=== PATIENT | male | born 1930 | race Caucasian/White ===

== ENCOUNTER → 2016-05-29 | Outpatient (CLI) | payer MEDICARE, OTHER ==
[~2016-05-29] MED LIST: CEFDINIR300 MG PO; DIFLUCAN 100MG100 MG PO; ED ZITHROM6 TAB/BOTT PO; FINASTERIDE5 MG PO; FOLGARD RX 2.21 TAB PO; GLUCOSAMINE CHO1 CA2 PO; KLOR-CON M1010 MEQ PO; LASIX 20MG TABL20 MG PO; LATANOPROST 2.2.5 ML OU; LOPRESSOR 225 MG/TAB PO; MIRALAX PA17 GM/Dose PO; NORCO 325 MG-7.1 TA1 PO; POTASSIUM CH2 MEQ/ML PO; PREDNISONE10 MG PO; SAW PALMETTO450 M1 PO; ST. JOSEPH81 M2 PO; SUPER EPA1 SGL PO; SYNTHROID0.088 MG PO; TYLENOL 325MG325 MG PO; ZYLOPRIM 300MG300 MG PO; [UNRECOGNIZED DRUG - OTHER] PO
== END ==
LOC: LAB 09:21
DX: C83.08 Small cell B-cell lymphoma, lymph nodes of multiple sites (principal)

== ENCOUNTER → 2016-06-05 | Outpatient (CLI) | payer MEDICARE, OTHER | LOC: LAB 09:11 | DX: C83.08 Small cell B-cell lymphoma, lymph nodes of multiple sites (principal) ==

== ENCOUNTER → 2016-06-12 | Outpatient (CLI) | payer MEDICARE, OTHER | LOC: LAB 09:10 | DX: C83.08 Small cell B-cell lymphoma, lymph nodes of multiple sites (principal) ==

== ENCOUNTER → 2016-06-16 | Outpatient (CLI) | payer MEDICARE, OTHER | LOC: RAD 08:48 | DX: C18.0 Malignant neoplasm of cecum (principal); K76.9 Liver disease, unspecified; N28.9 Disorder of kidney and ureter, unspecified | CPT/HCPCS: Q9967 ==

== ENCOUNTER → 2016-06-19 | Outpatient (CLI) | payer MEDICARE, OTHER | LOC: LAB 09:16 | DX: C18.0 Malignant neoplasm of cecum (principal) ==

== ENCOUNTER → 2016-06-26 | Outpatient (CLI) | payer MEDICARE, OTHER | LOC: LAB 09:05 | DX: C18.0 Malignant neoplasm of cecum (principal) ==

== ENCOUNTER → 2016-07-03 | Outpatient (CLI) | payer MEDICARE, OTHER | LOC: LAB 09:05 | DX: C83.08 Small cell B-cell lymphoma, lymph nodes of multiple sites (principal) ==

== ENCOUNTER → 2016-07-10 | Outpatient (CLI) | payer MEDICARE, OTHER | LOC: LAB 09:23 | DX: C83.08 Small cell B-cell lymphoma, lymph nodes of multiple sites (principal) ==

== ENCOUNTER → 2016-07-17 | Outpatient (CLI) | payer MEDICARE, OTHER | LOC: LAB 09:22 | DX: C83.08 Small cell B-cell lymphoma, lymph nodes of multiple sites (principal) ==

== ENCOUNTER → 2016-07-31 | Outpatient (CLI) | payer MEDICARE, OTHER | LOC: LAB 09:28 | DX: C18.4 Malignant neoplasm of transverse colon (principal) ==

== ENCOUNTER → 2016-08-07 | Outpatient (CLI) | payer MEDICARE, OTHER | LOC: LAB 09:25 | DX: C18.4 Malignant neoplasm of transverse colon (principal) ==

== ENCOUNTER → 2016-08-14 | Outpatient (CLI) | payer MEDICARE, OTHER | LOC: LAB 09:19 | DX: C18.4 Malignant neoplasm of transverse colon (principal) ==

== ENCOUNTER → 2016-09-11 | Outpatient (CLI) | payer MEDICARE, OTHER ==
[2015-12-26 16:38] VITALS: BP 138/76
== END ==
LOC: LAB 09:13
DX: C18.0 Malignant neoplasm of cecum (principal)

== ENCOUNTER → 2016-10-09 | Outpatient (CLI) | payer MEDICARE, OTHER ==
[2015-12-26 16:38] VITALS: BP 138/76
== END ==
LOC: LAB 09:24
DX: C18.4 Malignant neoplasm of transverse colon (principal)

== ENCOUNTER → 2016-11-06 | Outpatient (CLI) | payer MEDICARE, OTHER ==
[2015-12-26 16:38] VITALS: BP 138/76
== END ==
LOC: LAB 09:01
DX: C18.0 Malignant neoplasm of cecum (principal)

== ENCOUNTER → 2016-12-04 | Outpatient (CLI) | payer MEDICARE, OTHER ==
[2015-12-26 16:38] VITALS: BP 138/76
== END ==
LOC: LAB 08:41
DX: C18.4 Malignant neoplasm of transverse colon (principal)

== ENCOUNTER → 2017-01-01 | Outpatient (CLI) | payer MEDICARE, OTHER ==
[2015-12-26 16:38] VITALS: BP 138/76
== END ==
LOC: LAB 08:55
DX: C18.9 Malignant neoplasm of colon, unspecified (principal)

== ENCOUNTER → 2017-01-02 | Outpatient (CLI) | payer MEDICARE, OTHER ==
[2015-12-26 16:38] VITALS: BP 138/76
== END ==
LOC: RAD 08:41
DX: C18.9 Malignant neoplasm of colon, unspecified (principal); K76.9 Liver disease, unspecified; N28.9 Disorder of kidney and ureter, unspecified
CPT/HCPCS: Q9967

== ENCOUNTER → 2017-01-12 | Outpatient (CLI) | payer MEDICARE, OTHER ==
[~2017-01-12] VITALS: Ht 170.2 cm; Wt 98.7 kg
[2017-01-12 20:00] VITALS: BP 144/82
== END ==
LOC: AMSURD 19:48
DX: Z45.2 Encounter for adjustment and management of vascular access device (principal)
CPT/HCPCS: J1644

== ENCOUNTER → 2017-02-02 | Outpatient (CLI) | payer MEDICARE, OTHER ==
[2017-01-12 20:00] VITALS: BP 144/82
== END ==
LOC: LAB 09:05
DX: C18.0 Malignant neoplasm of cecum (principal)

== ENCOUNTER → 2017-03-09 | Outpatient (CLI) | payer MEDICARE, OTHER ==
[2017-01-12 20:00] VITALS: BP 144/82
== END ==
LOC: LAB 09:05
DX: C18.0 Malignant neoplasm of cecum (principal); C18.4 Malignant neoplasm of transverse colon

== ENCOUNTER → 2017-04-06 | Outpatient (CLI) | payer MEDICARE, OTHER ==
[2017-01-12 20:00] VITALS: BP 144/82
[2017-04-06 09:16] LABS: HEMATOCRIT 49.2 % (42.0-52.0); HEMOGLOBIN 15.4 g/dL (13.5-18.0); MEAN CELL VOLUME 95 fl (78-100); MEAN CORPUSCULAR HEMOGLOBIN 30 pg (27-31); MEAN CORPUSCULAR HGB CONC 31 g/dL (33-37); MEAN PLATELET VOLUME 8.8 fl (7.4-10.4); PLATELET COUNT 243 K/mm3 (130-400); RED BLOOD COUNT 5.19 M/mm3 (4.20-5.60); RED CELL DISTRIBUTION WIDTH 16.2 % (11.5-14.5); WHITE BLOOD COUNT 3.8 K/mm3 (4.8-10.8)
[2017-04-06 09:27] LABS: ALBUMIN 3.1 g/dL (3.5-5.0); BUN/CREATININE RATIO 17.7 (6.0-26.0); CALCIUM 8.7 mg/dL (8.4-10.2); POTASSIUM 3.8 mmol/L (3.6-5.0); TOTAL BILIRUBIN 1.5 mg/dL (0.2-1.3); TOTAL PROTEIN 5.8 g/dL (6.3-8.2)
[2017-04-06 09:48] LABS: BAND 1 % (0-10); LYMPHOCYTE 30 % (20-51); MONOCYTE 27 % (3-10); NEUTROPHILS 35 % (42-75)
== END ==
LOC: LAB 08:53
PROVIDERS: Internal Medicine Medical Oncology
DX: C18.0 Malignant neoplasm of cecum (principal)

== ENCOUNTER → 2017-05-20 | Outpatient (CLI) | payer MEDICARE, OTHER ==
[2017-01-12 20:00] VITALS: BP 144/82
[2017-05-20 09:38] LABS: BUN/CREATININE RATIO 19.5 (6.0-26.0); CALCIUM 7.8 mg/dL (8.4-10.2); POTASSIUM 3.9 mmol/L (3.6-5.0); TOTAL BILIRUBIN 1.7 mg/dL (0.2-1.3); TOTAL PROTEIN 5.4 g/dL (6.3-8.2)
[2017-05-20 09:45] LABS: HEMATOCRIT 48.7 % (42.0-52.0); MEAN CELL VOLUME 95 fl (78-100); MEAN CORPUSCULAR HEMOGLOBIN 29 pg (27-31); MEAN CORPUSCULAR HGB CONC 31 g/dL (33-37); MEAN PLATELET VOLUME 9.4 fl (7.4-10.4); PLATELET COUNT 209 K/mm3 (130-400); RED BLOOD COUNT 5.12 M/mm3 (4.20-5.60); WHITE BLOOD COUNT 7.5 K/mm3 (4.8-10.8)
[2017-05-20 10:42] LABS: LYMPHOCYTE 17 % (20-51); MONOCYTE 13 % (3-10); NEUTROPHILS 66 % (42-75)
== END ==
LOC: LAB 08:42
PROVIDERS: Internal Medicine Medical Oncology
DX: C18.9 Malignant neoplasm of colon, unspecified (principal)

== ENCOUNTER → 2017-05-22 | Outpatient (CLI) | payer MEDICARE, OTHER ==
[2017-01-12 20:00] VITALS: BP 144/82
== END ==
LOC: RAD 16:13
DX: J06.9 Acute upper respiratory infection, unspecified (principal); R05 Cough; I50.32 Chronic diastolic (congestive) heart failure

== ENCOUNTER → 2017-05-27 | Outpatient (CLI) | payer MEDICARE, OTHER ==
[2017-01-12 20:00] VITALS: BP 144/82
[2017-05-27 09:54] LABS: BUN/CREATININE RATIO 14.6 (6.0-26.0); CALCIUM 8.7 mg/dL (8.4-10.2); TOTAL PROTEIN 5.4 g/dL (6.3-8.2)
[2017-05-27 09:57] LABS: BASO # 0.1 (0.02-0.10); EOS # 0.2 (0.04-0.40); EOS % 2.3 % (0.0-4.0); HEMATOCRIT 47.9 % (42.0-52.0); LYMPH# 1.1 (1.50-4.00); MEAN CELL VOLUME 95 fl (78-100); MEAN CORPUSCULAR HEMOGLOBIN 30 pg (27-31); MEAN CORPUSCULAR HGB CONC 31 g/dL (33-37); MEAN PLATELET VOLUME 9.5 fl (7.4-10.4); MONO # 0.8 (0.20-0.80); NEU # 4.5 (1.40-6.50); PLATELET COUNT 233 K/mm3 (130-400); RED BLOOD COUNT 5.07 M/mm3 (4.20-5.60); RED CELL DISTRIBUTION WIDTH 16.1 % (11.5-14.5); WHITE BLOOD COUNT 6.6 K/mm3 (4.8-10.8)
== END ==
LOC: LAB 09:00
PROVIDERS: Internal Medicine Medical Oncology
DX: C18.9 Malignant neoplasm of colon, unspecified (principal)

== ENCOUNTER → 2017-06-01 | Outpatient (CLI) | payer MEDICARE, OTHER ==
[2017-01-12 20:00] VITALS: BP 144/82
== END ==
LOC: RAD 09:55
DX: C18.0 Malignant neoplasm of cecum (principal); Z85.72 Personal history of non-Hodgkin lymphomas; R18.8 Other ascites; K76.9 Liver disease, unspecified; N28.9 Disorder of kidney and ureter, unspecified; R93.5 Abnormal findings on diagnostic imaging of other abdominal regions, including retroperitoneum
CPT/HCPCS: Q9967

== ENCOUNTER → 2017-06-05 | Outpatient (CLI) | payer MEDICARE, OTHER ==
[2017-01-12 20:00] VITALS: BP 144/82
[2017-06-05 10:47] LABS: BUN/CREATININE RATIO 12.4 (6.0-26.0); CALCIUM 7.9 mg/dL (8.4-10.2); POTASSIUM 3.4 mmol/L (3.6-5.0)
== END ==
LOC: LAB 09:50
PROVIDERS: Family Medicine
DX: R60.9 Edema, unspecified (principal)

== ENCOUNTER → 2017-06-15 | Outpatient (CLI) | payer MEDICARE, OTHER ==
[2017-01-12 20:00] VITALS: BP 144/82
[2017-06-15 13:08] LABS: HEMATOCRIT 48.7 % (42.0-52.0); HEMOGLOBIN 15.1 g/dL (13.5-18.0); MEAN CELL VOLUME 94 fl (78-100); MEAN CORPUSCULAR HEMOGLOBIN 29 pg (27-31); MEAN CORPUSCULAR HGB CONC 31 g/dL (33-37); MEAN PLATELET VOLUME 9.1 fl (7.4-10.4); PLATELET COUNT 244 K/mm3 (130-400); RED BLOOD COUNT 5.18 M/mm3 (4.20-5.60); WHITE BLOOD COUNT 7.3 K/mm3 (4.8-10.8)
[2017-06-15 13:31] LABS: ALBUMIN 2.9 g/dL (3.5-5.0); BUN/CREATININE RATIO 16.3 (6.0-26.0); TOTAL BILIRUBIN 1.2 mg/dL (0.2-1.3); TOTAL PROTEIN 5.4 g/dL (6.3-8.2)
[2017-06-15 13:39] LABS: CALCIUM 7.8 mg/dL (8.4-10.2)
[2017-06-15 13:41] LABS: LYMPHOCYTE 16 % (20-51); MONOCYTE 12 % (3-10); NEUTROPHILS 69 % (42-75)
== END ==
LOC: LAB 12:53
PROVIDERS: Internal Medicine Medical Oncology
DX: C18.9 Malignant neoplasm of colon, unspecified (principal)

== ENCOUNTER → 2017-06-24 | Outpatient (CLI) | payer MEDICARE, OTHER ==
[~2017-06-24] VITALS: Ht 170.2 cm; Wt 98.7 kg
[2017-06-24 16:44] VITALS: BP 132/70
== END ==
LOC: RAD 15:58 → AMSURD 15:58
DX: I11.0 Hypertensive heart disease with heart failure (principal); I50.32 Chronic diastolic (congestive) heart failure; R55 Syncope and collapse; C78.5 Secondary malignant neoplasm of large intestine and rectum

== ENCOUNTER → 2017-06-26 | Outpatient (CLI) | payer MEDICARE, OTHER ==
[~2017-06-26] VITALS: Ht 170.2 cm; Wt 98.7 kg
[2017-06-26 15:16] VITALS: BP 110/66
== END ==
LOC: AMSURD 14:49
DX: R55 Syncope and collapse (principal)

== ENCOUNTER → 2017-07-02 | Outpatient (CLI) | payer MEDICARE, OTHER ==
[2017-06-26 15:16] VITALS: BP 110/66
[2017-07-02 09:50] LABS: HEMATOCRIT 48.5 % (42.0-52.0); HEMOGLOBIN 14.9 g/dL (13.5-18.0); MEAN CELL VOLUME 95 fl (78-100); MEAN CORPUSCULAR HEMOGLOBIN 29 pg (27-31); MEAN CORPUSCULAR HGB CONC 31 g/dL (33-37); PLATELET COUNT 289 K/mm3 (130-400); RED BLOOD COUNT 5.12 M/mm3 (4.20-5.60); RED CELL DISTRIBUTION WIDTH 17.2 % (11.5-14.5); WHITE BLOOD COUNT 3.8 K/mm3 (4.8-10.8)
[2017-07-02 10:00] LABS: ALBUMIN 3.1 g/dL (3.5-5.0); BUN/CREATININE RATIO 16.2 (6.0-26.0); CALCIUM 8.7 mg/dL (8.4-10.2); TOTAL BILIRUBIN 1.6 mg/dL (0.2-1.3); TOTAL PROTEIN 5.6 g/dL (6.3-8.2)
[2017-07-02 10:10] LABS: LYMPHOCYTE 17 % (20-51); MONOCYTE 17 % (3-10); NEUTROPHILS 38 % (42-75)
== END ==
LOC: LAB 09:15
PROVIDERS: Internal Medicine Medical Oncology
DX: I50.32 Chronic diastolic (congestive) heart failure (principal); R60.9 Edema, unspecified; C18.9 Malignant neoplasm of colon, unspecified

== ENCOUNTER → 2017-07-16 | Outpatient (CLI) | payer MEDICARE, OTHER ==
[2017-06-26 15:16] VITALS: BP 110/66
[2017-07-16 13:35] LABS: EOS # 0.2 (0.04-0.40); EOS % 2.7 % (0.0-4.0); HEMATOCRIT 44.4 % (42.0-52.0); LYMPH# 1.7 (1.50-4.00); MEAN CELL VOLUME 94 fl (78-100); MEAN CORPUSCULAR HEMOGLOBIN 30 pg (27-31); MEAN CORPUSCULAR HGB CONC 32 g/dL (33-37); MONO # 0.5 (0.20-0.80); NEU # 3.6 (1.40-6.50); PLATELET COUNT 151 K/mm3 (130-400); RED BLOOD COUNT 4.71 M/mm3 (4.20-5.60); RED CELL DISTRIBUTION WIDTH 17.6 % (11.5-14.5)
[2017-07-16 13:43] LABS: CALCIUM 7.9 mg/dL (8.4-10.2); TOTAL BILIRUBIN 1.8 mg/dL (0.2-1.3); TOTAL PROTEIN 5.4 g/dL (6.3-8.2)
== END ==
LOC: LAB 13:15
PROVIDERS: Internal Medicine Medical Oncology
DX: C18.9 Malignant neoplasm of colon, unspecified (principal)

== ENCOUNTER 2017-07-21 13:00 | Outpatient (RCR) | payer MEDICARE, OTHER ==
[2017-01-12 20:00] VITALS: BP 144/82
== END 2017-07-21 13:30 | disposition still patient (30) ==
LOC: PT 13:00
DX: M62.81 Muscle weakness (generalized) (principal); R60.9 Edema, unspecified; I50.32 Chronic diastolic (congestive) heart failure
CPT/HCPCS: G8978-GP; G8979-GP

== ENCOUNTER 2017-07-23 11:38 | Emergency (ER) | payer MEDICARE, OTHER ==
[~2017-07-23] VITALS: Wt 94.9 kg
[2017-07-23 12:10] LABS: HEMATOCRIT 45.3 % (42.0-52.0); HEMOGLOBIN 14.2 g/dL (13.5-18.0); MEAN CELL VOLUME 96 fl (78-100); MEAN CORPUSCULAR HEMOGLOBIN 30 pg (27-31); MEAN CORPUSCULAR HGB CONC 31 g/dL (33-37); MEAN PLATELET VOLUME 9.2 fl (7.4-10.4); PLATELET COUNT 272 K/mm3 (130-400); RED BLOOD COUNT 4.72 M/mm3 (4.20-5.60); RED CELL DISTRIBUTION WIDTH 18.4 % (11.5-14.5); WHITE BLOOD COUNT 2.5 K/mm3 (4.8-10.8)
[2017-07-23 12:22] LABS: ALBUMIN 2.9 g/dL (3.5-5.0); BUN/CREATININE RATIO 23.9 (6.0-26.0); CALCIUM 8.4 mg/dL (8.4-10.2); POTASSIUM 3.7 mmol/L (3.6-5.0); TOTAL BILIRUBIN 2.9 mg/dL (0.2-1.3); TOTAL PROTEIN 5.1 g/dL (6.3-8.2)
[2017-07-23 12:25] LABS: LYMPHOCYTE 43 % (20-51); MONOCYTE 5 % (3-10); NEUTROPHILS 32 % (42-75)
[2017-07-23 12:26] LABS: OVALOCYTES 2+
[2017-07-23] MEDS ORDERED: METOLAZONE5 MG PO (12:44)
[2017-07-23] MEDS ORDERED: CETIRIZINE HCL10 MG PO (12:44)
[2017-07-23 14:59] LABS: URINE APPEARANCE CLEAR; URINE BILIRUBIN NEGATIVE (NEGATIVE); URINE BLOOD NEGATIVE (NEGATIVE); URINE COLOR YELLOW; URINE GLUCOSE NEGATIVE (NEGATIVE); URINE KETONE NEGATIVE (NEGATIVE); URINE LEUKOCYTE ESTERASE NEGATIVE (NEGATIVE); URINE NITRATE NEGATIVE (NEGATIVE); URINE PROTEIN(semi-quant) 1+ mg/dL (NEGATIVE); URINE UROBILINOGEN NORMAL (NORMAL); URINE WBC 0-1 /hpf (0-3)
[2017-07-23 15:00] LABS: URINE MUCUS PRESENT (NOT PRESENT)
[2017-07-23] MEDS ORDERED: PROTONIX TR40 M1 PO (16:32)
[2017-07-23 16:56] VITALS: BP 151/77
== END 2017-07-23 16:48 | disposition home or self-care (01) ==
LOC: ED 11:38
PROVIDERS: Physician Assistant
DX: R00.0 Tachycardia, unspecified (principal); R53.1 Weakness; R62.7 Adult failure to thrive; T45.1X5A Adverse effect of antineoplastic and immunosuppressive drugs, initial encounter; S51.012A Laceration without foreign body of left elbow, initial encounter; I11.0 Hypertensive heart disease with heart failure; C91.10 Chronic lymphocytic leukemia of B-cell type not having achieved remission; E03.9 Hypothyroidism, unspecified; I50.30 Unspecified diastolic (congestive) heart failure; Z91.14 Patient's other noncompliance with medication regimen; Z79.82 Long term (current) use of aspirin; Z79.899 Other long term (current) drug therapy; N40.0 Benign prostatic hyperplasia without lower urinary tract symptoms; J30.9 Allergic rhinitis, unspecified
CPT/HCPCS: A4340; J1644

== ENCOUNTER 2017-07-27 09:13 | Emergency (ER) | payer MEDICARE, OTHER ==
[~2017-07-27] VITALS: Wt 94.7 kg
[~2017-07-27 09:13] MED LIST changes: +CETIRIZINE HCL10 MG PO; +METOLAZONE5 MG PO; +PROTONIX TR40 M1 PO
[2017-07-27 09:49] LABS: HEMATOCRIT 39.1 % (42.0-52.0); HEMOGLOBIN 12.6 g/dL (13.5-18.0); MEAN CELL VOLUME 94 fl (78-100); MEAN CORPUSCULAR HEMOGLOBIN 30 pg (27-31); MEAN CORPUSCULAR HGB CONC 32 g/dL (33-37); MEAN PLATELET VOLUME 9.6 fl (7.4-10.4); PLATELET COUNT 110 K/mm3 (130-400); RED BLOOD COUNT 4.17 M/mm3 (4.20-5.60); RED CELL DISTRIBUTION WIDTH 17.4 % (11.5-14.5); WHITE BLOOD COUNT 3.4 K/mm3 (4.8-10.8)
[2017-07-27 10:02] LABS: ALBUMIN 2.4 g/dL (3.5-5.0); BAND 17 % (0-10); BUN/CREATININE RATIO 29.1 (6.0-26.0); CALCIUM 7.6 mg/dL (8.4-10.2); LYMPHOCYTE 7 % (20-51); MONOCYTE 5 % (3-10); NEUTROPHILS 71 % (42-75); OVALOCYTES 2+; TOTAL BILIRUBIN 3.1 mg/dL (0.2-1.3); TOTAL PROTEIN 4.6 g/dL (6.3-8.2)
[2017-07-27 10:05] LABS: POTASSIUM 2.9 mmol/L (3.6-5.0)
[2017-07-27 10:14] LABS: TROPONIN-I < 0.03 ng/mL (0.00-0.06)
[2017-07-27 12:47] VITALS: BP 135/66
== END 2017-07-27 12:33 | disposition short-term general hospital (02) ==
LOC: ED 09:13
PROVIDERS: Nurse Practitioner Primary Care
DX: J18.9 Pneumonia, unspecified organism (principal); K72.90 Hepatic failure, unspecified without coma; C79.9 Secondary malignant neoplasm of unspecified site; C91.10 Chronic lymphocytic leukemia of B-cell type not having achieved remission; C85.90 Non-Hodgkin lymphoma, unspecified, unspecified site; R18.8 Other ascites; R60.1 Generalized edema; M25.512 Pain in left shoulder; Z79.82 Long term (current) use of aspirin; I10 Essential (primary) hypertension; I12.9 Hypertensive chronic kidney disease with stage 1 through stage 4 chronic kidney disease, or unspecified chronic kidney disease; N18.9 Chronic kidney disease, unspecified
CPT/HCPCS: J1956; J2543

== ENCOUNTER 2017-08-07 14:53 | Inpatient (IN) | payer MEDICARE, OTHER ==
[~2017-08-07] VITALS: Ht 170.2 cm; Wt 82.1 kg
--- NOTE | 2017-08-07 13:00 | NUR ---
Received report from JOSEPHINE Garza, [facility]. States that pt has not left yet but daughter should be there to poultry picker at any time. Reports that they will leave port to R upper chest accessed. Also states that pt had 2 loose stools today with moderate blood. Reports that pt did not want to stay for colonoscopy to find source of bleeding.
--- NOTE | 2017-08-07 14:53 | NUR ---
Pt admitted SWB to room 205. Pt A&O x 3. Pt denies pain. On 2L O2 via NC. Reports that he does have CPAP at home, will call daughter to bring in own machine. Denies using O2 at home. Pt has weak, non-productive cough, bilat bases diminished. Port to R upper chest accessed by [place] personnel on 08/04/17. Remains accessed, flushes easily with brisk blood return. L elbow with healing [id number] skin tear, minimal sanguenious drainage. LFA with 2cm skin tear, bright red moderate drainage noted. Applied vaseline guaze and mepilex over each. R elbow with healing, closed skin tear, new pink tissue in place. Placed mepilex for protection. L groin with approx [id number] excoriated area, R groin with approx [id number] excoriated area and sacral split bright red and inflamed. Applied barrier cream to all areas. BLE with 3-4+ pitting edema. Pt reports that it is worse today than in recent days. Pt ambulates with 1 assist and walker but does have difficulty with balance upon first standing.
[2017-08-07 15:31] VITALS: BP 107/48
[2017-08-07 17:53] LABS: HEMATOCRIT 41.1 % (42.0-52.0); MEAN CELL VOLUME 95 fl (78-100); MEAN CORPUSCULAR HEMOGLOBIN 30 pg (27-31); MEAN CORPUSCULAR HGB CONC 32 g/dL (33-37); MEAN PLATELET VOLUME 10.7 fl (7.4-10.4); PLATELET COUNT 364 K/mm3 (130-400); RED BLOOD COUNT 4.31 M/mm3 (4.20-5.60); RED CELL DISTRIBUTION WIDTH 20.5 % (11.5-14.5)
[2017-08-07 17:58] LABS: ALBUMIN 2.2 g/dL (3.5-5.0); BUN/CREATININE RATIO 32.2 (6.0-26.0); CALCIUM 7.5 mg/dL (8.4-10.2); POTASSIUM 4.7 mmol/L (3.6-5.0); TOTAL BILIRUBIN 1.4 mg/dL (0.2-1.3); TOTAL PROTEIN 4.4 g/dL (6.3-8.2)
[2017-08-07 18:00] VITALS: BP 99/53
[2017-08-07 18:18] LABS: WHITE BLOOD COUNT 27.7 K/mm3 (4.8-10.8)
--- NOTE | 2017-08-07 18:26 | NUR ---
WBC result called to Dr. Bone
[2017-08-07 18:27] LABS: LYMPHOCYTE 11 % (20-51); MONOCYTE 9 % (3-10); NEUTROPHILS 79 % (42-75)
[2017-08-07 19:10] LABS: URINE COLOR YELLOW
[2017-08-07 19:11] LABS: URINE APPEARANCE HAZY; URINE BILIRUBIN NEGATIVE (NEGATIVE); URINE BLOOD TRACE (NEGATIVE); URINE GLUCOSE NEGATIVE (NEGATIVE); URINE KETONE NEGATIVE (NEGATIVE); URINE LEUKOCYTE ESTERASE 1+ (NEGATIVE); URINE NITRATE NEGATIVE (NEGATIVE); URINE PROTEIN(semi-quant) TRACE mg/dL (NEGATIVE); URINE UROBILINOGEN NORMAL (NORMAL); URINE WBC 16-30 /hpf (0-3)
--- NOTE | 2017-08-07 20:00 | NUR ---
LAB DRAWN FROM PORT.
--- NOTE | 2017-08-07 20:22 | NUR ---
REPORT RECEIVED FROM JOHN Sepulveda RN.
--- NOTE | 2017-08-08 00:23 | NUR ---
PATIENT CONTINUES TO REST QUIETLY IN BED. PATIENT DOES NOT APPEAR TO BE IN ANY OBVIOUS DISTRESS AT THIS TIME. PATIENT HAD MINOR PAIN EARLIER IN THE EVENING AND REQUESTED PRN MEDICATION, AND WAS ADMINISTERED APAP. PATIENT HAS NO OTHER COMPLAINTS. PATIENT SHIFTS HIS POSITION IN BED THROUGHOUT THE NIGHT. FURTHER MONITORING NEEDED TO EVALUATE FOR THE NEED FOR A TURN SCHEDULE. HOB ELEVATED TO A 60 DEGREE ANGLE PER PATIENT'S REQUEST. BED RAILS UP X2. BED ALARM ARMED AT ALL TIMES. CALL LIGHT WITHIN REACH. CLOSE MONITORING AND HOURLY ROUNDING CONTINUE.
[2017-08-08 06:43] VITALS: BP 107/47
--- NOTE | 2017-08-08 07:01 | NUR ---
REPORT GIVEN TO DENVER Sepulveda RN.
--- NOTE | 2017-08-08 07:33 | NUR ---
AWAKE AND SITTING IN CHAIR. OXYGEN IN PLACE VIA NC AT 2LPM. FINE CRACKLE NOTED TO LT LOWER LOBE THAT CLEARS WITH COUGH. HE DOES HAVE A LOOSE SOUNDING COUGH, BUT UNABLE TO PRODUCE SPUTUM. COUGH NOTED TO BE VERY WEAK. HE DENIES SHORTNESS OF BREATH. SKIN TEAR PRESENT TO RT HAND BETWEEN DIGIT #4 AND #5; STERI STRIPS HAVE FALLEN OFF AND SKIN FLAP OPEN TO AIR. WILL TALK TO DR CHU ABOUT SKIN GLUE APPLICATION DUE TO LOCATION. MEPILEX DRESSING INTACT TO RT FOREARM X1 AND LT FOREARM X2 (DRAINAGE NOTED TO OUTSIDE OF LT FOREARM DRESSING). ABD DISTENDED. PATIENT DOES CONFIRM THAT HE FEELS BLOATED. BOWEL SOUNDS ACTIVE X4 QUADS. 3+ PITTING EDEMA TO BILAT FLANK, HIP, AND LE. UNABLE TO PALPATE PEDAL PULSES; THEY ARE AUDIBLE WITH DOPPLER (LT LOUDER THAN RT). LT HALLUX NAIL AT CUTICLE HAS A DARK DISCOLORATION THAT PATIENT REPORTS "HAS BEEN THERE FOR A WHILE." ABRASION TO LT LAYTON NOTED TO BE WEEPING AND OPEN TO AIR. THERE ARE YELLOW CRUSTS TO DISTAL EDGES. SITE CLEANSED AND BANDAID TO COVER. HAS CALL LIGHT IN REACH.
--- NOTE | 2017-08-08 07:40 | NUR ---
UP TO BATHROOM WITH STAFF ASSIST. BLACK/TARRY STOOL OF A PUDDING CONSISTENCY PASSED. BLOOD TINGED URINE NOTED. THOROUGH NATALY CARE PROVIDED. PATIENT IS A BIT TENDER TO SACRAL SPLIT WITH NATALY CARES. SKIN PROTECTANT APPLIED.
--- NOTE | 2017-08-08 12:20 | NUR ---
AMBULATES TO BATHROOM STEADILY WITH 1 STAFF ASSIST. RISING FROM COMMODE PATIENT REPORTS HIS LE FEEL WEAK. 2 STAFF ASSIST BACK TO CHAIR.
--- NOTE | 2017-08-08 13:40 | NUR ---
BLACK/TARRY STOOL AGAIN. PERICARE PROVIDED. SCROTUM NOTED TO BE BRIGHT RED AND EDEMATOUS; FEELS FIRM. PATIENT REPORTS TENDERNESS TO SITE WITH CLEANSING. BILAT GROIN FOLD BRIGHT RED. SKIN PROTECTANT APPLIED. CENTRAL LINE INTACT TO RT UPPER CHEST. SITE FLUSHES EASILY WITH APPROPRIATE BLOOD RETURN. DRESSING INTACT.
--- NOTE | 2017-08-08 15:40 | NUR ---
SHOWER WITH WALLPAPERER ASSIST. BILAT HALLUX AND #2 TOE TO LT FOOT NOTED TO BE PINK/PURPLE HUE AND BOGGY TO PLANTAR SURFACE. BLANCHES QUICKLY. PATIENT REPORTS NO PAIN. LATERAL PORTION AND HEELS ON PLANTAR SURFACE OF BILAT FEET ALSO APPEAR PURPLE. FEET WERE ASSESSED THIS AM AND THIS DISCOLORATION NOT NOTED AT THAT TIME.
--- NOTE | 2017-08-08 16:14 | NUR ---
SHOWER COMPLETED. PATIENT POSITIONED TO BED PER COMFORT. MUST HAVE HOB ELEVATED TO AVOID FEELING SUFFOCATED. NEW OPEN SKIN NOTED TO MIDLINE SCROTUM, MEASURING 1.8CM X 0.7CM AND ALSO NOTED TO LT GROIN FOLD MEASURING 4CM X 1.4CM. BILAT WOUND BEDS APPEAR PALE YELLOW IN COLOR; CLEAR DRAINAGE NOTED. SKIN PROTECTANT APPLIED. SCROTUM RED AND FIRM WITH EDEMA. SCROTAL SLING APPLIED USING INTERDRY CLOTH. DR CHU NOTIFIED OF FINDINGS TO FEET AND NEW WOUNDS; ASK FOR PICHARDO CATH. DR CHU AGREES AND 16 FR PICHARDO PLACED PER STERILE TECHNIQUE; UA SPECIMEN COLLECTED PER PROTOCOL.
[2017-08-08 17:21] LABS: HEMATOCRIT 37.7 % (42.0-52.0); HEMOGLOBIN 12.2 g/dL (13.5-18.0); MEAN CELL VOLUME 96 fl (78-100); MEAN CORPUSCULAR HEMOGLOBIN 31 pg (27-31); MEAN CORPUSCULAR HGB CONC 32 g/dL (33-37); MEAN PLATELET VOLUME 10.3 fl (7.4-10.4); PLATELET COUNT 322 K/mm3 (130-400); RED BLOOD COUNT 3.94 M/mm3 (4.20-5.60); RED CELL DISTRIBUTION WIDTH 20.4 % (11.5-14.5)
[2017-08-08 17:33] LABS: BUN/CREATININE RATIO 35.1 (6.0-26.0); CALCIUM 7.7 mg/dL (8.4-10.2); POTASSIUM 4.6 mmol/L (3.6-5.0)
[2017-08-08 17:37] LABS: WHITE BLOOD COUNT 22.1 K/mm3 (4.8-10.8)
[2017-08-08 17:39] LABS: LYMPHOCYTE 4 % (20-51); MONOCYTE 8 % (3-10); NEUTROPHILS 88 % (42-75)
[2017-08-08 18:24] LABS: URINE APPEARANCE HAZY; URINE BILIRUBIN NEGATIVE (NEGATIVE); URINE BLOOD NEGATIVE (NEGATIVE); URINE COLOR YELLOW; URINE GLUCOSE NEGATIVE (NEGATIVE); URINE KETONE NEGATIVE (NEGATIVE); URINE LEUKOCYTE ESTERASE NEGATIVE (NEGATIVE); URINE NITRATE NEGATIVE (NEGATIVE); URINE PROTEIN(semi-quant) NEGATIVE (NEGATIVE); URINE UROBILINOGEN NORMAL (NORMAL); URINE WBC 0-1 /hpf (0-3)
[2017-08-08 18:49] VITALS: BP 129/63
--- NOTE | 2017-08-08 19:39 | NUR ---
REPORT RECEIVED FROM DENVER Sepulveda RN.
--- NOTE | 2017-08-08 22:21 | NUR ---
This nurse assisted patient to BR early AM this morning at 0500. While putting patient to bed caught noted an L shape skin tear to right hand between ring finger and pinky finger. Direct presser applied until bleeding stopped. Skin approximated with a Q tip and steri-strips applied.
--- NOTE | 2017-08-09 00:03 | NUR ---
PATIENT CONTINUES TO REST QUIETLY IN BED. PATIENT DOES NOT APPEAR TO BE IN ANY OBVIOUS DISTRESS AT THIS TIME. PATIENT HAD REQUESTED PRN APAP LAST NIGHT WITH HIS MEDICATIONS. PATIENT'S OCCULT STOOL SAMPLE OBTAINED TONIGHT. PICHARDO IN PLACE AND DRAINING YELLOW HAZY URINE. NEW STATLOCK APPLIED, THE PREVIOUS ONE WAS PULLING TOO TIGHT. DRESSINGS TO BILATERAL ARM SKIN TEARS INTACT. DRESSING TO LEFT LAYTON ABRASION INTACT. SKIN GLUE TO RIGHT HAND CONTINUES TO HOLD THE SKIN TEAR TOGETHER. COCCYX, BUTTOCKS, SCROTUM AND BILATERAL GROIN FOLDS ALL EXTREMELY EXCORIATED, SO INTERDRY APPLIED IN GROIN FOLDS AND UNDER SCROTUM. BARRIER CREAM APPLIED TO BUTTOCKS AND COCCYX. NO INCONTINENCE BRIEF ON SO TO LET THE SKIN DRY OUT SOME. PATIENT ALSO HAS NO SOCKS ON TO ALLOW HIS FEET TO DRY OUT, HIS BIG TOES ARE BOGGY AND REDDENED, AND MAY BE FROM SATURATED SOCKS. TENT PLACED AT END OF BED TO HELP WITH SKIN BREAKDOWN ON THE TOES. PATIENT IS REMINDED THAT HE WILL BE ON A TURNING SCHEDULE TO HELP HIS SKIN HEAL, AND HE IS AGREEABLE. PILLOW PLACED BEHIND BACK AT THIS TIME. HOB ELEVATED TO A 45 DEGREE ANGLE PER PATIENT'S REQUEST. BED RAILS UP X2. PICC TO TAPAN REMAINS PATENT. O2 CONTINUES AT 2L/MIN VIA NC. CALL LIGHT WITHIN REACH. BED ALARM ARMED AT ALL TIMES. CLOSE MONITORING AND HOURLY ROUNDING CONTINUE.
[2017-08-09 06:23] VITALS: BP 126/54
--- NOTE | 2017-08-09 06:58 | NUR ---
REPORT GIVEN TO DENVER Sepulveda RN.
--- NOTE | 2017-08-09 06:58 | NUR ---
REPORT RECIEVED FROM SAL BURTON.
--- NOTE | 2017-08-09 08:40 | NUR ---
PATIENT AWAKE WITH HOB ELEVATED. OXYGEN IN PLACE AT 2LPM VIA NC. GURGLING RESPIRATIONS NOTED FROM BEDSIDE. PATIENT DENIES DIFFICULTY BREATHING. RESP APPEAR EVEN AND UNLABORED. DISCUSS NEBULIZER TX WITH PATIENT AND HE AGREES. LOOSE PHLEGM TO THROAT AND PATIENT UNABLE TO COUGH WITH ENOUGH FORCE TO EXPELL. PITTING EDEMA THROUGHOUT BODY. BLANKETS ELEVATED OFF FEET. BILT HALLUX STILL FEEL BOGGY, BUT IMPROVED FROM YESTERDAY. THEY REMAIN A PINK/PURPLE HUE, WELL THE LATERAL EDGE AND HEEL OF EACH FOOT. ENCOURAGE POSITION CHANGES TODAY; PATIENT VERBALIZES UNDERSTANDING. MEPILEX DRESSING TO LT ARM X2 SATURATED WITH SEROUS DRAINAGE AND CHANGED, WELL MEPILEX TO LT LAYTON. HIS C-PAP HAS NOT BEEN BROUGHT IN BY FAMILY. CALL LIGHT IN REACH.
--- NOTE | 2017-08-09 10:40 | NUR ---
COFFEE GROUND STOOL. WITH NATALY CARE, SMALL SKIN OPENING NOTED TO SACRAL SPLIT, MEASURES 0.4CM X 0.3CM. SKIN PROTECTANT APPLIED. SCABS REMAIN INTACT TO BILAT INNER BUTTOCK; SKIN PROTECTANT APPLIED WELL. POSITION PATIENT TO BED AND WOUND CARE PROVIDED TO SCROTUM AND LT GROIN FOLD SITE. ADAPTIC GAUZE APPLIED TO BOTH SITES AND THEN INTERDRY PLACED. PICHARDO REMAINS INTACT AND DRAINING. PATIENT HAS NO C/O PAIN WITH WOUND CARE TODAY. POSITION TO LT SIDE.
--- NOTE | 2017-08-09 11:25 | NUR ---
HAS VISITOR. SPEAKS IN FULL SENTENCES WITHOUT BECOMING SHORT OF BREATH. NO GURGLING NOTED AT BEDSIDE. DENIES ABILITY TO COUGH UP LOOSE PHLEGM IN THROAT. BREATH SOUNDS CLEAR TO RT LUNG. RHONCHI STILL PRESENT TO LT LUNG. REPOSITION TO CHAIR FOR LUNCH. PATIENT ABLE TO RISE FROM BED IN ONE ATTEMPT WITH MINIMAL ASSIST. GAIT STEADY WITH WALKER. LT FOREARM DRESSING SATURATED AND SPILLING OVER TO SHEET WITH SEROUS DRAINAGE. CLEAN LINENS AND DRESSING APPLIED.
[2017-08-09 18:54] VITALS: BP 106/49
--- NOTE | 2017-08-09 20:05 | NUR ---
Report received from Cheryle Ornelas RN. Pt resting in bed, awake and a/o x 3. Denies having any needs, concerns or pain.
--- NOTE | 2017-08-09 23:00 | NUR ---
Q hourly checks done. Bed alarm on. Ayala catheter to dependant drainage. Oxygen on at 2L/NC. Continues on fluid restriction.
[2017-08-10 06:22] VITALS: BP 123/64
--- NOTE | 2017-08-10 07:30 | NUR ---
Report and bed side rounds made with Jael Novoa RN. Pt resting in bed, eyes closed even respirations. Opens eyes when spoken too. Bed alarm on. Oxygen continues at 2L/NC.
[2017-08-10 18:01] VITALS: BP 125/71
--- NOTE | 2017-08-10 19:50 | NUR ---
Report received from Joanie Novoa RN, bed side rounds made. Pt awake and a/o x 3. Resting in bed, TV on. Bed alarm set.
--- NOTE | 2017-08-10 23:00 | NUR ---
Q hourly checks done. Bed alarm on. Oxygen on at 2L/NC. Ayala catheter to depandant drainage.
[2017-08-11 06:35] VITALS: BP 111/56
--- NOTE | 2017-08-11 06:40 | NUR ---
Q hourly checks done. Bed alarm set. Pt has been turned every two hours. Oxygen on at 2L/NC. Pt stated "I've had a good night, I slept well." Denied having any pain, chest pain, SOB. Denied nausea.
--- NOTE | 2017-08-11 07:05 | NUR ---
Bed side report done with Jael Novoa RN
--- NOTE | 2017-08-11 16:20 | NUR ---
Celeste Pollock PA-C at bedside.
--- NOTE | 2017-08-11 16:27 | NUR ---
Pt left HH choice list in his room for his daughter to review and choose a [employer] at his request. Also pt expressed an interest in having the [facility] visit w/ him - VM left at sikh office that pt would like some one to visit him.
[2017-08-11 16:51] LABS: HEMATOCRIT 38.8 % (42.0-52.0); HEMOGLOBIN 12.3 g/dL (13.5-18.0); MEAN CELL VOLUME 97 fl (78-100); MEAN CORPUSCULAR HEMOGLOBIN 31 pg (27-31); MEAN CORPUSCULAR HGB CONC 32 g/dL (33-37); MEAN PLATELET VOLUME 9.9 fl (7.4-10.4); PLATELET COUNT 278 K/mm3 (130-400); RED BLOOD COUNT 4.02 M/mm3 (4.20-5.60); RED CELL DISTRIBUTION WIDTH 21.8 % (11.5-14.5); WHITE BLOOD COUNT 18.3 K/mm3 (4.8-10.8)
[2017-08-11 17:04] LABS: ALBUMIN 2.3 g/dL (3.5-5.0); BUN/CREATININE RATIO 34.6 (6.0-26.0); CALCIUM 7.6 mg/dL (8.4-10.2); POTASSIUM 3.3 mmol/L (3.6-5.0); TOTAL BILIRUBIN 1.2 mg/dL (0.2-1.3); TOTAL PROTEIN 4.5 g/dL (6.3-8.2)
[2017-08-11 17:47] LABS: LYMPHOCYTE 9 % (20-51); MONOCYTE 10 % (3-10); NEUTROPHILS 81 % (42-75)
[2017-08-11 18:43] VITALS: BP 107/60
--- NOTE | 2017-08-11 19:25 | NUR ---
Bed side report done with Jael Novoa RN. Pt awake and a/o x 3. Sitting up in recliner with feet elevated. Ayala Catheter to dependant drainage. Oxygen on 2L/NC. All dressing intact. Pt pleasant and cooperative. Port-a-cath located right upper chest. Denies having any needs, concerns or pain. Denies SOB.
--- NOTE | 2017-08-11 20:15 | NUR ---
C/o of pain across shoulders, rated pain 3 out 10. Given tylenol 650mg PO per pt request. Nystatin cream applied to right and left groin and scrutum. Medications given in apple sauce. No difficulty noted in swallowing. Offered pt evening snack or ensure shake. Pt declined.
--- NOTE | 2017-08-11 20:30 | NUR ---
Dressing change done to left forearm . Clear drainage noted. Small skin tear noted. Color purple to red. Tolerated without difficulty.
--- NOTE | 2017-08-12 04:02 | NUR ---
Q hourly checks done. Bed alarm set. Oxygen on at 2L/NC. Ayala catheter to dependant drainage. Opens eyes when touched or spoken too. No c/o's of pain. Has denied having any needs or concerns.
[2017-08-12 06:04] VITALS: BP 117/71
--- NOTE | 2017-08-12 07:15 | NUR ---
Bed side report done with Jael Novoa RN. Pt resting in bed, eyes closed even respirations. Oxygen on at 2L/NC. Ayala catheter to dependant drainage. Bed alarm set.
[2017-08-12 18:45] VITALS: BP 102/49
--- NOTE | 2017-08-12 19:04 | NUR ---
REPORT RECEIVED FROM LIUDMILA Singh RN.
[2017-08-12 22:11] VITALS: BP 113/67
[2017-08-13] VITALS (7 sets, daily range): BP systolic 84–121; BP diastolic 34–66
--- NOTE | 2017-08-13 00:40 | NUR ---
PATIENT CONTINUES TO REST QUIETLY IN BED. PATIENT DOES NOT APPEAR TO BE IN ANY OBVIOUS DISTRESS AT THIS TIME. PATIENT DENIES PAIN AND HAS NO REQUESTS OR COMPLAINTS. PATIENT'S POSITION IN BED CONTINUES TO BE CHANGED Q2H. O2 CONTINUES ON 2L/MIN VIA NC. PICHARDO CATHETER IS PATENT AND DRAINING. HOB ELEVATED TO A 45 DEGREE ANGLE FOR PATIENT'S COMFORT AND PER HIS REQUEST. BED RAILS UP X2. BED ALARM ARMED AT ALL TIMES. CALL LIGHT WITHIN REACH. CLOSE MONITORING AND HOURLY ROUNDING CONTINUE.
--- NOTE | 2017-08-13 06:55 | NUR ---
REPORT GIVEN TO DENVER Sepulveda RN.
--- NOTE | 2017-08-13 08:26 | NUR ---
JUST FINISHING IN BATHROOM WITH SPECIALIST PHYSICIAN ASSIST. SKIN PEELING TO BILAT INNER BUTTOCK AND SACRUM/COCCYX; SKIN UNDER IS RED AND BLANCHABLE. GAIT STEADY TO CHAIR. DOES REPORT SHORTNESS OF BREATH WITH ACTIVITY. PATIENT FEELS BETTER TODAY; POSITIVE OUTLOOK. DRESSING TO RT ARM SKIN TEAR LOOSE AND HAS SLID DOWN FROM WOUND SITE. THIS HAS ALSO HAPPENED TO THE RT HAND DRESSING. DRESSINGS REAMIN INTACT TO LT ARM X2. SCANT SEROUS DRAINAGE NOTED TO OUTSIDE UPPER LEFT MEPILEX AND ALSO TO LT LAYTON MEPILEX. PITTING EDEMA NOTED TO ABD, FLANK, HIP, AND LE. PEDAL PULSES ARE PALPABLE WITH RT PULSE WEAKER THAN LT. SKIN DISCOLORED TO PLANTAR SURFACE OF BILAT FEET. TOENAILS NOTED TO BE THICK. CALL LIGHT IN REACH.
--- NOTE | 2017-08-13 11:56 | NUR ---
WALKS TO NURSE'S STATION WITH PT AND THEN BACK TO ROOM WITH A BREAK IN MIDDLE. PATIENT TALKATIVE AND POSITIVE ABOUT ACCOMPLISHMENT.
--- NOTE | 2017-08-13 13:47 | NUR ---
TO RADIOLOGY DEPT FOR SWALLOW STUDY.
--- NOTE | 2017-08-13 18:55 | NUR ---
DIESEL MACHINIST REPORTS DECREASED BP. MANUAL BP TAKEN AND BP REMAINS LOW. EKG OBTAINED AND DR SHOEMAKER NOTIFIED VIA PHONE. PATIENT DENIES SX OF HEADACHE, DIZZINESS, SHORTNESS OF BREATH AND CHEST PAIN.
--- NOTE | 2017-08-13 19:00 | NUR ---
REPORT RECEIVED FROM DENVER Sepulveda RN.
--- NOTE | 2017-08-13 19:03 | NUR ---
DR SHOEMAKER AT BEDSIDE WITH PATIENT.
--- NOTE | 2017-08-13 19:15 | NUR ---
CARBON BRUSHER ASSEMBLER JOLANTA CALLED IN TO DRAW LABS.
--- NOTE | 2017-08-13 19:22 | NUR ---
DR. SHOEMAKER GIVES ORDERS FOR AN EKG, CARDIAC LABS, HOURLY VITALS X2 AND TO HOLD THE LOPRESSOR FOR NOW.
--- NOTE | 2017-08-13 19:35 | NUR ---
REPORT PROVIDED TO SAL BURTON.
--- NOTE | 2017-08-13 19:43 | NUR ---
PORT ACCESSED DUE TO OBTAINMENT OF LAB AND TO HAVE A LINE AVAILABLE DUE TO PATIENT'S STATUS CHANGE. 1" NEEDLE INSERTED. IMMEDIATE BLOOD RETURN NOTED. LINE FLUSHED. CAP APPLIED. PATIENT TOLERATED WELL.
[2017-08-13 20:10] LABS: CKMB ISOENZYME 1.7 ng/mL (0.6-3.5)
--- NOTE | 2017-08-13 20:10 | NUR ---
PATIENT'S DAUGHTER APPROACHED THE NURSE'S STATION AND ASKED THE MALE PIT RECORDER IF HE WAS "DR. SHOEMAKER." THIS RN STATED NO AND ASKED HOW WE CAN HELP HER. PATIENT'S DAUGHTER ASKED FOR THE NURSE IN CHARGE. I IDENTIFIED MYSELF THE NURSE IN CHARGE AND ALSO PATIENT'S NURSE. PATIENT'S DAUGHTER BEGAN TO ASK A MULTITUDE OF QUESTIONS IN RAPID SUCCESSION. PATIENT'S DAUGHTER ASKED "CAN I HAVE A RATIONALE BEHIND WHY EVERYTHING IS SO DIFFERENT HERE THAN AT [facility]?" SHE THEN ELABORATED "WHY DOWN THERE WAS HE ALLOWED TO HAVE ALL OF THESE FLUIDS, MUCH HE WANTED AND WHY WAS HIS CAFFEINE AND CHOCOLATE RESTRICTED DOWN THERE?" THIS RN PROVIDED EDUCATION ON CHF AND HOW THE FLUID RESTRICTION, IN ADDITION TO THE LASIX ADMINISTRATION, HELPED IN CONJUNCTION WITH EACH OTHER TO GET THE FLUID OFF OF HIM. DAUGHTER ALSO PROVIDED EDUCATION THAT PATIENT DOES NOT CONSUME ENOUGH CAFFIENE OR CHOCOLATE THROUGHOUT THE DAY TO REALLY MAKE A DIFFERENCE ON HIS STATUS. PATIENT'S DAUGHTER STATES "WELL I WOULD LIKE TO REQUEST NO CAFFEINE OR CHOCOLATE BE GIVEN TO HIM. HE CAN HAVE VANILLA OR STRAWBERRY." THIS RN CONFIRMED WITH DAUGHTER THAT SHE WAS IN FACT PATIENT'S DPOA. THE DAUGHTER STATED "YES". PATIENT'S DAUGHTER ALSO STATED SHE WANTED HIM ON A LOW SODIUM DIET. EDUCATION PROVIDED REGARDING PROPER SODIUM LEVELS, AND THAT SOME SODIUM IS ACTUALLY HEALTHY FOR OUR BODIES AND THAT LEVELS ARE MONITORED REGULARLY. PATIENT'S DAUGHTER INDICATED UNDERSTANDING BUT THEN ASKED WHEN PATIENT SIGNED A DNR PAPER. THIS RN INFORMED DAUGHTER THAT THE ORDER WOULD HAVE BEEN PUT IN WHEN HE WAS ADMITTED, AND THAT THE SIGNED PAPERS AREN'T KEPT HERE, BUT COULD BE ACCESSED FROM MEDICAL RECORDS, WHICH WILL BE OPEN TOMORROW MORNING. PATIENT'S DAUGHTER STATED "WELL WE NEVER TALKED ABOUT HIM BEING A DNR SO I WAS WONDERING WHO TALKED TO HIM ABOUT THAT." DAUGHTER INFORMED THAT THE ORDER IS PUT IN BY A DOCTOR AFTER HE DISCUSSES THE IMPLICATIONS AND EDUCATION IS PROVIDED WITH THE PATIENT. DAUGHTER INDICATES SHE WILL SPEAK WITH DEANDRE ABOUT THIS BEFORE REQUESTING HE BE A FULL CODE. DAUGHTER SPEAKS WITH PATIENT BRIEFLY AND THEN APPROACHES THIS RN STATING "HE DID SAY HE SIGNED A DNR ORDER WHEN HE GOT HERE. HE DOESN'T WANT TO BE A VEGETABLE." THIS RN INFORMED DAUGHTER THAT NO ORDERS WOULD BE CHANGED AT THIS TIME AND THAT DR. SHOEMAKER WOULD BE CONSULTED LATER IN THE EVENING ONCE THE LABS WERE RESULTED AND THE VITALS WERE OBTAINED ORDERED. DAUGHTER INDICATES UNDERSTANDING. HOWEVER, DAUGHTER IS LATER HEARD TALKING ON THE PHONE INDICATING "THIS DOESNT MAKE SENSE." MORE EDUCATION WILL BE PROVIDED. DAUGHTER INFORMED THAT SOME MEDICATION HAVE RECENTLY BEEN MADE AND THAT MONITORING WILL CONTINUE TO HAPPEN THROUGHOUT THE NIGHT. SHE IS ALSO INFORMED OF LAB WORK ORDERED AND THAT THE MEDICATIONS WERE RESTARTED TONIGHT. DR. SHOEMAKER WILL BE NOTIFIED SHORTLY.
[2017-08-13 20:14] LABS: TROPONIN-I < 0.03 ng/mL (0.00-0.06)
--- NOTE | 2017-08-13 21:00 | NUR ---
THIS RN IN WITH PATIENT TO ADMINISTER MEDICATIONS. PATIENT AND FAMILY PROVIDED FURTHER EDUCATION REGARDING THE MEDICATION CHANGES.
--- NOTE | 2017-08-13 21:22 | NUR ---
DR. SHOEMAKER NOTIFIED OF SECOND SET OF VITALS.
--- NOTE | 2017-08-13 21:30 | NUR ---
DR. SHOEMAKER CALLS BACK AND GIVES ORDERS TO GIVE 1/2 DOSE (6.25MG) OF METOPROLOL.
[2017-08-14 03:59] VITALS: BP 79/42
--- NOTE | 2017-08-14 04:43 | NUR ---
DR. SHOEMAKER CONTACTED THIS MORNING REGARDING PATIENT'S BLOOD PRESSURE OF 79/[address] SHOEMAKER GAVE ORDERS TO DRAW THE FOLLOWING LAB AT 0630: CBC, CKMB, TROPONIN AND PRO-BNP. HE ALSO GAVE ORDERS TO OBTAIN AN EKG AT 0630 AND TO HOLD BOTH DOSES OF THE METOPROLOL FOR TODAY. HE ALSO EXPRESSED HIS WISHES TO BE CONTACTED PRIOR TO ADMINISTRATION OF METOPROLOL WITH A CURRENT AND ACCURATE BLOOD PRESSURE AND PULSE AFTER TODAY.
[2017-08-14 06:39] VITALS: BP 70/39
[2017-08-14 06:45] LABS: HEMATOCRIT 36.9 % (42.0-52.0); HEMOGLOBIN 11.7 g/dL (13.5-18.0); MEAN CELL VOLUME 98 fl (78-100); MEAN CORPUSCULAR HEMOGLOBIN 31 pg (27-31); MEAN CORPUSCULAR HGB CONC 32 g/dL (33-37); MEAN PLATELET VOLUME 10.5 fl (7.4-10.4); PLATELET COUNT 204 K/mm3 (130-400); RED BLOOD COUNT 3.77 M/mm3 (4.20-5.60); RED CELL DISTRIBUTION WIDTH 22.5 % (11.5-14.5); WHITE BLOOD COUNT 15.3 K/mm3 (4.8-10.8)
[2017-08-14 06:48] LABS: CKMB ISOENZYME 1.7 ng/mL (0.6-3.5)
[2017-08-14 06:57] LABS: TROPONIN-I < 0.03 ng/mL (0.00-0.06)
[2017-08-14 07:08] LABS: BAND 1 % (0-10); LYMPHOCYTE 8 % (20-51); MICROCYTOSIS 1+; MONOCYTE 11 % (3-10); NEUTROPHILS 79 % (42-75); POLYCHROMASIA 1+
--- NOTE | 2017-08-14 07:15 | NUR ---
REPORT GIVEN TO DENVER Sepulveda RN.
[2017-08-14 12:20] VITALS: BP 109/50
[2017-08-14 13:34] LABS: ALBUMIN 2.1 g/dL (3.5-5.0); BUN/CREATININE RATIO 36.9 (6.0-26.0); CALCIUM 7.7 mg/dL (8.4-10.2); POTASSIUM 3.7 mmol/L (3.6-5.0); TOTAL BILIRUBIN 1.3 mg/dL (0.2-1.3); TOTAL PROTEIN 4.3 g/dL (6.3-8.2)
--- NOTE | 2017-08-14 13:39 | NUR ---
FLUID BOLUS COMPLETE AT THIS TIME PER DR SHOEMAKER.
--- NOTE | 2017-08-14 15:32 | NUR ---
DAUGHTER AT BEDSIDE. PATIENT NAPPING INTERMITTENTLY.
[2017-08-14 16:08] VITALS: BP 109/75
[2017-08-14 18:35] VITALS: BP 105/59
--- NOTE | 2017-08-14 19:35 | NUR ---
Report received from JOSEPHINE Lobato and care transfered.
--- NOTE | 2017-08-14 19:45 | NUR ---
REPORT PROVIDED TO JERRY BURTON.
--- NOTE | 2017-08-14 21:30 | NUR ---
Assessment complete. Pt alert and oriented. Denies any pain at this time. States he would like Tylenol to help with sleeping, and he sometimes has pain in his left knee. Pt has multiple dressings. Dressings noted to left upper and lower arm, rt elbow area, rt hand between 4th and 5th finger, and left garcia area. All currently clean dry and intact. Will monitor throughout the night to make sure they do not wheep through dressing. Groin area reddened. Nystatin cream applied. Ayala to DD with clear yellow urine. Port to RUC accessed with NS infusing at 125ml/hr. Site WNL. Will saline lock after fluids are done. Pt aware of 2000 ml fluid restriction and is following it. O2 on at 2L and sats is 93-94%. HR 126. Did not give duo neb because of HR. Gave Xopenex instead because HR was >100 per orders. Pt denies any needs at this time. Will cont to monitor.
--- NOTE | 2017-08-14 22:44 | NUR ---
Received in report that after current NS bolus that is infusing, patient is to have no more IV fluids. In EMAR, it has that pt is to receive more IV fluids. Called Dr Sol to clarify. He gave orders to stop IV fluids for the night. Pt's current BP was 101/55, HR 126. Dr aware of VS. IVF stopped.
--- NOTE | 2017-08-15 03:00 | NUR ---
Pt resting with eyes closed. Pt is being repositioned approx every 2 hrs. Pt did refuse SCD's earlier. Will cont to monitor.
--- NOTE | 2017-08-15 05:28 | NUR ---
O2 sat 88% on 2L NC. Increased to 2.5L and now 90%. Dressings to left lower arm and rt elbow starting to seep through. Dressings changed. Pt kaiden well. Bed change done because bedding got a little wet due to seeping wounds. pt also repositioned on side. Pt kaiden well. Bed alarm is on and call light is within reach.
[2017-08-15 05:57] VITALS: BP 136/43
--- NOTE | 2017-08-15 05:59 | NUR ---
Reassessed pt's lung sounds. Rhonci heard in left lung. Pt stated he felt a little short of breath. Asked if he wanted a breathing treatment. He stated he would. O2 sat 90% on 2.5L NC. PRN Xopenex treatment given. Pt stated that helped his breathing.
--- NOTE | 2017-08-15 07:05 | NUR ---
Report given to JOSEPHINE Rader and care transfered.
--- NOTE | 2017-08-15 10:17 | NUR ---
Xopenex breathing treatment given in place of duoneb per order since pt's HR 120. Pt denies shortness of breath - resp 24. 02 at 2.5 L/NC. Pt assisted back to bed w/ help of 1 w/ steady gait. Pericare given especially around meatus and under foreskin. 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 After washing periarea, nystatin cream applied. Sacral area without breakdown but noted reddened and raw between buttocks - cleansed and nystatin cream applied. Pt denies any pain with cleansing. Feet allowed to float off pillows - no breakdown. Interdry to groin folds. Depends left off to allow air to periarea. Repositioned onto right side - encouraged pt to lie on sides for a while. Denies other needs at this time.
--- NOTE | 2017-08-15 10:24 | NUR ---
Dressings to left and right arms/hand D/I at this time. Dresssing changed around 530 this am and not changed at this time. Will continue to assess. Pt noted to have very diminished breath sounds in left base. Denies cough, shortness of breath. will continue to monitor - weight up 3 #[address]. Sol notified.
--- NOTE | 2017-08-15 10:35 | NUR ---
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 Pt wanting to rest in bed for short time. Bed alarms on. Noted moist sounding cough following breathing treatment.
--- NOTE | 2017-08-15 11:00 | NUR ---
New orders received from Dr. Sol. Pt instructed on flutter valve use, new med and upcoming labs/rad studies and verbalizes understanding. Daughter here for short time.
--- NOTE | 2017-08-15 11:30 | NUR ---
Port remains accessed. Flushed w/ 10 ml NS w/ good blood return noted. Lumen clamped after NS flush.
--- NOTE | 2017-08-15 11:50 | NUR ---
Pt desiring to ambulate in hallway a short distance w/ walker and CGA of staff. 02 on 2 L/NC at start of walk and shows 88%. 02 increased to 3L/NC for walk. Pt noted to have increased effort and resp but pt denies any shortness of breath. Pt rests by room 202 - initial sats in mid 80's but waveform not good. As rests for couple of minutes waveform good and 02 sats 90-94% on 3 L/NC. HR in 130's. Pt encouraged to return to room d/t increased HR w/ ambulation and not ambulate any further today. Pt returns to BR and has stool and returns to recliner for lunch. Call light in reach.
--- NOTE | 2017-08-15 13:53 | NUR ---
Assisted back to bed w/ help of 1 and use of walker. 02 continues at 2.5 L/NC - noted increased resp with activity. Call light in reach and bed alarms on. Friend here to see patient. Denies further needs at this time.
--- NOTE | 2017-08-15 13:56 | NUR ---
Few coarse crackles noted in left base and remain diminished. Pulls 250 to 500 on incentive spirometer. Importance of flutter valve and IS stresssed to patient.
[2017-08-15 14:00] VITALS: BP 95/43
[2017-08-15 14:43] VITALS: BP 104/49
--- NOTE | 2017-08-15 16:43 | NUR ---
Noted right elbow area drainage leaking onto clothes. Right elbow drsg removed - wound seeping clear fluid, wound bed pink. Pt denies any discomfort. Mepilex non adherent pad placed and secured w/ cling wrap. Drsg to right hand removed. skin tear wound bed clean - no drng noted at this time. Small piece of adaptic placed and secured with cling wrapped around hand. Left upper arm drsg removed as some serous drainage noted on drsg - non adherent mepilex placed over clean pink skin tear wound bed which appears to be healing and secured with cling wrap. Drsg to left FA removed - dry - and skin tear w/ steri stips intact left open to air. Pt's depends remains off to allow for air to red and raw area between buttocks cheeks and groin folds. Areas appear more dry this afternoon than this morning. Pt denies discomforts with any dressing changes. Pt agreeable to getting up in recliner for dinner - pt assisted to edge of bed and then able to stand at bedside using walker without assistance. CGA given to pt upon transfer to chair. Pt noted to have some audible wheezing when in bed. Moist cough - wheezes clear. call light in reach.
--- NOTE | 2017-08-15 17:00 | NUR ---
Pt c/o some nausea after getting into chair. gerry offered but refused at this time. randy bag close by. Sipping on strawberry enlive.
[2017-08-15 17:48] VITALS: BP 122/72
--- NOTE | 2017-08-15 18:31 | NUR ---
refused dinner as stomach still not right. Took few sips of enlive.
--- NOTE | 2017-08-15 19:32 | NUR ---
Dr. Sol called to clarify coreg being daily. no new orders. Told dr of pt's upset stomach and order for mylanta prn received. notified of urine output and intake this 12 hours. Pt remains up in chair watching [employer] game and reports will call when wants back to bed.
--- NOTE | 2017-08-15 20:45 | NUR ---
Pt given 7-up a little bit a go and reports his stomach feels fine again. States may need tylenol a little later but will let us know.
[2017-08-15 23:41] VITALS: BP 93/46
[2017-08-16 06:32] VITALS: BP 112/52; BP 93/46
--- NOTE | 2017-08-16 08:35 | NUR ---
Patient alert and oriented. Denies pain. States he is feeling "not worth a darn." Reported dizziness, and feeling like the room was spinning this morning. Denies dizziness at this time. Patient sits up on the edge of the bed to take medications. Swallows pills whole in applesauce. Patient coughs and gags with over half of the pills. Reviewed ST swallowing recommendations. Patient demonstrates and verbalizes understanding. Indwelling urinary catheter to dependent drainage. Ayala is free flowing without kinks or twists. Securement device intact to right thigh. Patient reports dyspnea intermittently at rest and with exertion. Oxygen at 2 liters via nasal cannula. Portacath to right chest flushes without difficulty. Brisk blood return noted. Portacath dressing is clean, dry, and intact. Multiple dressings to bilateral upper extremities are clean, dry, and intact. Patient denies needs or questions at this time. Fall precautions in place.
[2017-08-16 10:29] VITALS: BP 116/50
[2017-08-16 13:54] VITALS: BP 112/52
[2017-08-16 18:16] VITALS: BP 120/52
--- NOTE | 2017-08-16 20:30 | NUR ---
Pt resting in bed. Alert. States today didn't have as good of a day. No specific complaints. 02 at 2 L/NC. Lungs with rhonchi bilateral bases and diminshed breath sounds on the left. pt uses flutter valve correctly and on his own. Noted to have 1 cm open wound noted on scrotum. Barrier cream used - will continue to monitor. Depends left off to allow for air flow. Ayala patent of yellow clear urine. Denies shortness of breath. Call light in reach and bed alarms on.
--- NOTE | 2017-08-16 21:30 | NUR ---
Port to right chest flushed w/ NS w/ good blood return noted. Flushed w/ 10 ml NS and lumen clamped. Site without redness or edema.
--- NOTE | 2017-08-16 22:45 | NUR ---
Pt has moist cough and some moist respirations while sleeping. 02 continues 2 L/NC. Sp02 check 94-95% when resting. weight down 1# this am from yesterday.
--- NOTE | 2017-08-17 00:22 | NUR ---
Report to JOSEPHINE Rodgers
--- NOTE | 2017-08-17 05:38 | NUR ---
Pt calls to use BR then gets up to recliner. Requests PO Tylenol for shoulder pain 08/01. Pt ambulates to recliner using walker, without difficulty. PO meds given 1-2 at a time, whole, in apple sauce. Pt swallows without difficulty.
[2017-08-17 05:48] VITALS: BP 115/46
--- NOTE | 2017-08-17 06:41 | NUR ---
Lab drawn from port per protocol.
[2017-08-17 06:55] LABS: HEMATOCRIT 36.8 % (42.0-52.0); HEMOGLOBIN 11.5 g/dL (13.5-18.0); MEAN CELL VOLUME 100 fl (78-100); MEAN CORPUSCULAR HEMOGLOBIN 31 pg (27-31); MEAN CORPUSCULAR HGB CONC 31 g/dL (33-37); MEAN PLATELET VOLUME 10.2 fl (7.4-10.4); PLATELET COUNT 224 K/mm3 (130-400); RED CELL DISTRIBUTION WIDTH 23.5 % (11.5-14.5); WHITE BLOOD COUNT 18.6 K/mm3 (4.8-10.8)
[2017-08-17 07:25] LABS: BUN/CREATININE RATIO 32.3 (6.0-26.0); CALCIUM 8.3 mg/dL (8.4-10.2); POTASSIUM 4.7 mmol/L (3.6-5.0)
[2017-08-17 07:48] LABS: LYMPHOCYTE 5 % (20-51); MICROCYTOSIS 1+; MONOCYTE 15 % (3-10); NEUTROPHILS 80 % (42-75); OVALOCYTES 1+
--- NOTE | 2017-08-17 08:30 | NUR ---
Dr. Sol notified of patient's c/o "not feeling worth a darn" and decreased energy. Patient tires more quickly than usual with activity, and has minimal appetite.
--- NOTE | 2017-08-17 08:53 | NUR ---
DROWSY THIS AM. TILTS HEAD BACK AND CLOSES EYES QUICKLY AFTER WAKING. SPEECH UNDERSTOOD, BUT SLURRED. TOO WEAK TO HOLD NEBULIZER TO MOUTH. WILL USE MASK NEXT TIME.
[2017-08-17 09:07] VITALS: BP 104/52
--- NOTE | 2017-08-17 10:19 | NUR ---
Dr. Sol at bedside.
--- NOTE | 2017-08-17 13:20 | NUR ---
Received phone call from Ary (daughter/DPOA) asking "what's going on?" Ary states that patient just called her crying and she wants to know what is going on. POTATO CHIP SACKING MACHINE OPERATOR states that she just left the patient room after helping him to and from the bathroom. POTATO CHIP SACKING MACHINE OPERATOR states that he had not ate any of his lunch, and that she encouraged him to do so, but he told her he needed to call his daughter first. States that patient did not appear upset or distressed at that time. Entered patient room, asked if he was feeling ok. Patient states "I don't think I'm going to make it." Denies pain, and is unable to give details regarding how he is feeling. Only states that he doesn't have any energy. States "I'm pooped, I just don't have any energy." Patient states that he walked into the bathroom, got fatigued, and didn't think he was going to make it back to the chair. 40mg IV lasix administered per orders. Repositioned patient in recliner. Lower extremities elevated, and weeping. Ayala catheter to dependent drainage. Ary (daughter, DPOA) enters room, patient immediately starts crying and states "I'm not doing very good." Patient is still unable to give details about symptoms. Daughter updated on plan of care. Daughter has questions regarding why patient is on a fluid restriction here when he was allowed to drink as much water as he wanted at [facility]. She was also concerned about the amount of swelling in his legs, and states that he is doing worse here than he was at [place]. Ary requests that his lower extremities get wrapped or FILIBERTO hose applied. She also asks about an appetite stimulant and antidepressant. Dr. Sol notified of the above, states that he will come and see the patient again, and discuss lab and x-ray results, and plan of care with patient and daughter.
[2017-08-17 14:00] VITALS: BP 96/47
[2017-08-17 14:23] LABS: URINE APPEARANCE CLOUDY; URINE BILIRUBIN NEGATIVE (NEGATIVE); URINE BLOOD 250 ery/uL (NEGATIVE); URINE COLOR YELLOW; URINE GLUCOSE NEGATIVE (NEGATIVE); URINE KETONE NEGATIVE (NEGATIVE); URINE LEUKOCYTE ESTERASE 2+ (NEGATIVE); URINE MUCUS PRESENT (NOT PRESENT); URINE NITRATE NEGATIVE (NEGATIVE); URINE PROTEIN(semi-quant) TRACE mg/dL (NEGATIVE); URINE UROBILINOGEN NORMAL (NORMAL); URINE WBC >50 /hpf (0-3)
--- NOTE | 2017-08-17 16:13 | NUR ---
Lactic acid 2.4. Dr. Sol notified.
--- NOTE | 2017-08-17 16:25 | NUR ---
Dr. Sol at bedside with patient and patient's daughter. Patient opens eyes briefly, then goes back to sleep.
[2017-08-17 18:14] VITALS: BP 101/52
[2017-08-17 23:01] VITALS: BP 97/42
[2017-08-18 05:47] VITALS: BP 117/52; BP 177/52
[2017-08-18 07:05] LABS: HEMATOCRIT 36.3 % (42.0-52.0); HEMOGLOBIN 11.2 g/dL (13.5-18.0); MEAN CELL VOLUME 101 fl (78-100); MEAN CORPUSCULAR HEMOGLOBIN 31 pg (27-31); MEAN CORPUSCULAR HGB CONC 31 g/dL (33-37); MEAN PLATELET VOLUME 10.6 fl (7.4-10.4); PLATELET COUNT 195 K/mm3 (130-400); RED CELL DISTRIBUTION WIDTH 23.3 % (11.5-14.5); WHITE BLOOD COUNT 14.5 K/mm3 (4.8-10.8)
[2017-08-18 07:08] LABS: BUN/CREATININE RATIO 33.5 (6.0-26.0); CALCIUM 8.3 mg/dL (8.4-10.2); POTASSIUM 4.7 mmol/L (3.6-5.0)
[2017-08-18 07:30] LABS: LYMPHOCYTE 6 % (20-51); MICROCYTOSIS 1+; MONOCYTE 9 % (3-10); NEUTROPHILS 85 % (42-75); OVALOCYTES 1+; POLYCHROMASIA 1+
--- NOTE | 2017-08-18 08:26 | NUR ---
Dr. Sol in to speak with pt regarding plan of care. Pt unable to choose between transferring to higher level of care or hospice and requests to speak with his daughter prior to making a decision.
--- NOTE | 2017-08-18 08:28 | NUR ---
Daughter arrives and is speaking with Dr. Sol at this time.
--- NOTE | 2017-08-18 10:09 | NUR ---
Applied adalid wraps to BLE and elevated legs above level of heart.
[2017-08-18 10:57] VITALS: BP 109/65
[2017-08-18 14:56] VITALS: BP 110/60
[2017-08-18 18:59] VITALS: BP 98/70
[2017-08-18 22:37] VITALS: BP 128/61
[2017-08-19 02:43] VITALS: BP 131/72
--- NOTE | 2017-08-19 06:00 | NUR ---
Patient alert and oriented. Denies pain. Was up to the bathroom multiple times through the night for bowel movements. States that he slept well other wilson. Oxygen at 2 liters via nasal cannula. Dyspnea noted with exertion and intermittently at rest. +3 edema and weeping noted to bilateral lower extremities. Multiple dressings to bilateral upper extremities are clean, dry, and intact. Indwelling urinary catheter to dependent drainage. Ayala is free flowing without kinks or twists. Securement device intact to right thigh. Patient swallows AM medications in applesauce without difficulty. Portacath to right chest flushes without difficulty. Brisk blood return noted. Portacath dressing is clean, dry, and intact. Patient denies needs or questions at this time. Fall precautions in place.
[2017-08-19 06:07] LABS: HEMATOCRIT 36.8 % (42.0-52.0); HEMOGLOBIN 11.6 g/dL (13.5-18.0); MEAN CELL VOLUME 101 fl (78-100); MEAN CORPUSCULAR HEMOGLOBIN 32 pg (27-31); MEAN CORPUSCULAR HGB CONC 32 g/dL (33-37); MEAN PLATELET VOLUME 10.3 fl (7.4-10.4); PLATELET COUNT 167 K/mm3 (130-400); RED BLOOD COUNT 3.64 M/mm3 (4.20-5.60); RED CELL DISTRIBUTION WIDTH 23.2 % (11.5-14.5); WHITE BLOOD COUNT 12.1 K/mm3 (4.8-10.8)
[2017-08-19 06:21] LABS: BUN/CREATININE RATIO 36.1 (6.0-26.0); CALCIUM 8.2 mg/dL (8.4-10.2)
[2017-08-19 06:29] LABS: LYMPHOCYTE 4 % (20-51); NEUTROPHILS 86 % (42-75)
[2017-08-19 06:30] LABS: MICROCYTOSIS 1+; MONOCYTE 9 % (3-10); POLYCHROMASIA 1+
[2017-08-19 06:35] VITALS: BP 119/65
--- NOTE | 2017-08-19 08:10 | NUR ---
PT UP IN CHAIR FINISHING UP HIS BREAKFAST, PT REFUSING TO EAT FOOD AND ATTEMPTING TO DRINK A SMALL AMOUNT OF ENSURE SHAKE, WILL ADDRESS DECREASE IN APPETITE WITH , DRESSINGS CHANGED TO BILATERAL ARMS, WEEPING STILL PRESENT IN BLE, WILL CHANGE ARM DRESSINGS PRN THROUGHOUT SHIFT TODAY, COMPLEX ASSESSMENT COMPLETED AND CHARTED, PT SHOWING SIGNS OF SLIGHT IMPROVEMENT TODAY AND STATES HE "FEELS BETTER THIS MORNING," WILL CONTINUE TO MONITOR HIS VITAL SIGNS AND LAB VALUES AND REPORT VALUES OR ANY CHANGES TO
[2017-08-19 11:04] VITALS: BP 100/57
--- NOTE | 2017-08-19 12:40 | NUR ---
AT NURSES STATION DISCUSSING PLAN OF CARE AND REVIEWING PATIENTS CHART, ORDERS MEGACE FOR APPETITE AND STARTS 500ML OF IVF AT 100ML/HR AT THIS TIME, PT EDUCATED ON THESE MEDICATION ORDERS AND IN AGREEANCE WITH THIS PLAN, PORT ACCESSED AND FUNCTIONING WELL WITH BRISK BLOOD RETURN
[2017-08-19 14:17] VITALS: BP 104/42
--- NOTE | 2017-08-19 14:24 | NUR ---
PT RESTING IN BED WITH DAUGHTER AT BEDSIDE, LEGS ELEVATED AND WRAPPED IN SHANTEL WRAPS FROM TOES UP TOWARDS HEART, WILL LEAVE WRAPS ON FOR AT LEAST 30 MINUTES, PT SHOWING IMPROVEMENT TODAY SYMPTOMATICALLY, STATES HE "FEELS MUCH BETTER" TODAY, PT WAS ABLE TO AMBULATE WELL WITH THERAPY, DID DESATURATE AND NEED MULTIPLE BREAKS BUT SHOWED IMPROVEMENT FROM PREVIOUS DAYS, TEAM OF CAREGIVERS MET WITH DAUGHTER AND PT REGARDING PLAN OF CARE AND CURRENT HEALTH STATUS, ALL ON THE SAME PAGE AT THIS TIME AND DAUGHTER DENIES ANY FURTHER QUESTIONS AT THIS TIME
[2017-08-19 18:03] VITALS: BP 111/62
--- NOTE | 2017-08-19 18:47 | NUR ---
PT RESTING IN BED, LEGS ELEVATED, PLEASED WITH THE PROGRESS TODAY, REMAINS REPORTING "FEELING MUCH BETTER" TODAY, DAUGHTER LEAVES AT THIS TIME, ALSO PLEASED WITH TODAY, IV FLUIDS SHUT OFF AT THIS TIME PER ORDER, I/O CHARTED, 3+ BILATERAL PITTING EDEMA TO LOWER EXTREMITIES, WEEPING MINIMAL AT THIS TIME, DRESSINGS TO ARMS CLEAN DRY AND INTACT, NO ACUTE CHANGES NOTED THIS SHIFT, WILL CONTINUE TO MONITOR HEALTH STATUS
[2017-08-19 22:46] VITALS: BP 91/50
[2017-08-20 06:20] VITALS: BP 97/57
--- NOTE | 2017-08-20 07:00 | NUR ---
BEDSIDE REPORT RECEIVED FROM GUS BURTON.
--- NOTE | 2017-08-20 08:30 | NUR ---
PATIENT'S DAUGHTER IN TO VISIT THIS AM.
[2017-08-20 10:10] VITALS: BP 113/42
--- NOTE | 2017-08-20 11:00 | NUR ---
RT PORTACATH FLUSHED WITH NS AND THEN HEPLOCKED. SITE DE-ACCESSED FOR NEEDLE CHANGE TODAY. SITE COVERED WITH BANDAID. PLAN TO SHOWER THIS AFTERNOON AND WILL ACCESS SITE AFTER SHOWER SO PATIENT CAN WASH SKIN TO THAT SITE.
--- NOTE | 2017-08-20 12:10 | NUR ---
ST WORKING WITH PATIENT DURING LUNCH.
[2017-08-20 14:00] VITALS: BP 103/58
--- NOTE | 2017-08-20 14:52 | NUR ---
SHOWERS WITH PASTE MIXER ASSIST. POSITION BACK TO BED FOR WOUND AND SKIN CARE. PATIENT REPORTS FEELING A "BIT TIRED" BUT IS HAPPY HE MANAGED A DAY WITH A WALK AND A SHOWER. THERE IS A NEW AREA OF BREAKDOWN NOTED TO RT UPPER SKIN FOLD, LATERALLY. THIS MEASURES 0.3CM X 4CM, WOUND DEPTH APPROXIMATELY 0.1CM. RICKEY OINTMENT APPLIED AND THEN COVERED WITH NONSTICK TELFA. RT FOREARM SKIN TEAR COVERED WITH RICKEY AND BANDAID. LT UPPER ARM SKIN TEAR DRESSED WITH WET TO DRY DRESSING AND SECURED WITH GAUZE WRAP. LT FOREARM HAS 2 SKIN TEARS, ONE LEFT OPEN TO AIR AND THE OTHER COVERED WITH RICKEY AND BANDAID. INTERDRY PLACED TO RT ABD FOLD LATERALLY TO PROTECT SKIN IRRITATION. DESENEX PWD PLACED TO BILAT GROIN FOLD AND TO SACRAL SPLIT; SKIN TO THIS AREA IS RED WITH SMALL OPENING TO LT GROIN FOLD. SACRAL SPLIT IS PEELING. WOUND TO SCROTUM PRESENT, BUT APPEARS TO BE HEALING- IT IS LEFT OPEN TO AIR. ABRASION TO LT LAYTON COVERED WITH BANDAID IT IS WEEPING. RT LAYTON ALSO WEEPING FROM EDEMA, NO OPEN SKIN FOUND. CALL LIGHT IN REACH.
[2017-08-20 17:31] LABS: URINE APPEARANCE HAZY; URINE COLOR YELLOW
[2017-08-20 17:32] LABS: URINE BILIRUBIN NEGATIVE (NEGATIVE); URINE BLOOD 50 ery/uL (NEGATIVE); URINE GLUCOSE NEGATIVE (NEGATIVE); URINE KETONE NEGATIVE (NEGATIVE); URINE LEUKOCYTE ESTERASE 2+ (NEGATIVE); URINE NITRATE NEGATIVE (NEGATIVE); URINE PROTEIN(semi-quant) TRACE mg/dL (NEGATIVE); URINE UROBILINOGEN NORMAL (NORMAL); URINE WBC 31-50 /hpf (0-3)
[2017-08-20 18:12] VITALS: BP 90/74
--- NOTE | 2017-08-20 18:23 | NUR ---
2 PERSON ASSIST FROM CHAIR TO BED. PATIENT REPORTS DIFFICULTY MOVING LT LEG R/T WEAKNESS. POSITIVE ENCOURAGEMENT PROVIDED, PATIENT HAD A BUSY DAY. BILAT LE WEEPING BELOW KNEE. RT SKIN TEAR HAS WEEPED AND SATURATED BANDAID; MEPILEX FOAM APPLIED.
[2017-08-20 22:56] VITALS: BP 115/54
[2017-08-21 06:18] VITALS: BP 114/43
[2017-08-21 10:34] VITALS: BP 106/69
[2017-08-21 14:11] VITALS: BP 110/68
[2017-08-21 18:18] VITALS: BP 116/54
--- NOTE | 2017-08-21 19:44 | NUR ---
BEDSIDE REPORT RECEIVED FROM LIUDMILA Singh RN.
--- NOTE | 2017-08-21 21:04 | NUR ---
LAB DRAWN OFF PORT BY THIS RN AT THIS TIME.
[2017-08-21 21:12] LABS: HEMATOCRIT 37.5 % (42.0-52.0); HEMOGLOBIN 11.8 g/dL (13.5-18.0); MEAN CELL VOLUME 101 fl (78-100); MEAN CORPUSCULAR HEMOGLOBIN 32 pg (27-31); MEAN CORPUSCULAR HGB CONC 32 g/dL (33-37); MEAN PLATELET VOLUME 10.4 fl (7.4-10.4); PLATELET COUNT 175 K/mm3 (130-400); RED CELL DISTRIBUTION WIDTH 23.1 % (11.5-14.5); WHITE BLOOD COUNT 13.8 K/mm3 (4.8-10.8)
[2017-08-21 21:20] LABS: POTASSIUM 4.1 mmol/L (3.6-5.0)
[2017-08-21 21:46] LABS: LYMPHOCYTE 12 % (20-51); MONOCYTE 6 % (3-10); NEUTROPHILS 80 % (42-75)
--- NOTE | 2017-08-22 00:31 | NUR ---
PATIENT CONTINUES TO REST QUIETLY IN BED. PATIENT DOES NOT APPEAR TO BE IN ANY OBVIOUS DISTRESS. PATIENT DENIES HAVING ANY PAIN. ALL DRESSINGS ARE CDI. PATIENT'S POSITION IN BED HAS BEEN CHANGED Q2H. PICHARDO IS INTACT AND DRAINING CLEAR YELLOW URINE. HOB ELEVATED TO A 45 DEGREE ANGLE PER PATIENT'S REQUEST. PATIENT HAS NO REQUESTS OR COMPLAINTS. BED RAILS UP X2. CALL LIGHT WITHIN REACH. BED ALARM ARMED AT ALL TIMES. CLOSE MONITORING AND HOURLY ROUNDING CONTINUE.
[2017-08-22 06:09] VITALS: BP 129/65
--- NOTE | 2017-08-22 07:24 | NUR ---
REPORT GIVEN TO RICHARD Ware RN.
--- NOTE | 2017-08-22 09:20 | NUR ---
PT FOUND LAYING IN BED. DENIES ANY PAIN AT THIS TIME. PT COUGHS IN AN ATTEMPT TO CLEAR HIS THROAT. REPORTS PRODUCTIVE COUGHING ON OCCASION. O2 IN PLACE AT 2L. AP 92 BPM AT THIS TIME. 3+ PITTING EDEMA TO BLE, PEDAL PULSES PRESENT, DRESSINGS INTACT TO BILAT ARMS AND LEGS. NO OTHER NEEDS NOTED AT THIS TIME. WILL CONTINUE TO MONITOR. CALL LIGHT IN REACH.
--- NOTE | 2017-08-22 09:20 | NUR ---
SCHEDULED MEDS GIVEN TO PT IN APPLESAUCE. PT TOLERATES MOST MEDS WELL, K+ TURNED INTO SLURRY, PT A MUCH EASIER TIME SWALLOWING THIS WAY. NO PAIN NOTED, DENIES ANY NEEDS AT THIS TIME.
[2017-08-22 10:24] VITALS: BP 118/62
--- NOTE | 2017-08-22 13:00 | NUR ---
FAMILY IN ROOM VISITING WITH PT, SCHEDULED MEDS GIVEN AT THIS TIME. PT UP TO USE BATHROOM AT THIS TIME. GAIT STEADY WITH WALKER. NO OTHER NEEDS NOTED AT THIS TIME.
[2017-08-22 14:41] VITALS: BP 103/51
--- NOTE | 2017-08-22 15:00 | NUR ---
PT'S DRESSINGS CHANGED AT THIS TIME. WOUND TO LEFT GENEVIEVE LEFT OPEN TO AIR AT THIS TIME. LEFT UPPER ARM WOUND COVERED WITH WET TO DRY DRESSING, PT TOLERATES WELL. SLIGHT DRAINAGE NOTED WHEN DRESSING REMOVED. LOWER LEFT ARM SKIN TEAR COVERED WITH BANDAGE. RIGHT ARM WOUND COVERED WITH TELFA. OPEN AREA ON RIGHT ABD SKIN FOLD OPEN TO AIR. BUTTOCKS RED AND PEELING AT THIS TIME. PT DENIES ANY PAIN OR NEEDS.
[2017-08-22 18:49] VITALS: BP 105/41
--- NOTE | 2017-08-22 19:43 | NUR ---
REPORT RECEIVED FROM MARQUIS Arzola RN.
--- NOTE | 2017-08-22 19:57 | NUR ---
NO CHANGES IN PREVIOUS ASSESSMENT. REPORT GIVEN TO Hoda LAKHANI RN.
[2017-08-23 06:42] VITALS: BP 99/49
--- NOTE | 2017-08-23 06:57 | NUR ---
REPORT GIVEN TO CAMILA Pineda RN.
[2017-08-23 08:06] LABS: HEMATOCRIT 36.8 % (42.0-52.0); HEMOGLOBIN 11.3 g/dL (13.5-18.0); MEAN CELL VOLUME 102 fl (78-100); MEAN CORPUSCULAR HEMOGLOBIN 31 pg (27-31); MEAN CORPUSCULAR HGB CONC 31 g/dL (33-37); MEAN PLATELET VOLUME 10.4 fl (7.4-10.4); PLATELET COUNT 181 K/mm3 (130-400); RED CELL DISTRIBUTION WIDTH 23.2 % (11.5-14.5); WHITE BLOOD COUNT 10.7 K/mm3 (4.8-10.8)
[2017-08-23 08:13] LABS: BUN/CREATININE RATIO 38.7 (6.0-26.0); CALCIUM 8.1 mg/dL (8.4-10.2); POTASSIUM 4.1 mmol/L (3.6-5.0)
[2017-08-23 08:40] LABS: LYMPHOCYTE 10 % (20-51); MONOCYTE 6 % (3-10); NEUTROPHILS 81 % (42-75)
[2017-08-23 08:41] LABS: HYPOCHROMIA 1+; MICROCYTOSIS 1+
[2017-08-23 09:02] LABS: PH-URINE 7.5 (5.0 - 8.0); URINE APPEARANCE HAZY; URINE BILIRUBIN NEGATIVE (NEGATIVE); URINE BLOOD 50 ery/uL (NEGATIVE); URINE COLOR YELLOW; URINE GLUCOSE NEGATIVE (NEGATIVE); URINE KETONE NEGATIVE (NEGATIVE); URINE LEUKOCYTE ESTERASE 1+ (NEGATIVE); URINE NITRATE NEGATIVE (NEGATIVE); URINE PROTEIN(semi-quant) TRACE mg/dL (NEGATIVE); URINE UROBILINOGEN NORMAL (NORMAL); URINE WBC 31-50 /hpf (0-3)
[2017-08-23 09:03] LABS: URINE MUCUS PRESENT (NOT PRESENT)
--- NOTE | 2017-08-23 10:02 | NUR ---
Pt alert and oriented. Pt denies any pain. Pt reports BLE are tender to touch. Legs look much improved with 1-2+ edema and minimal weeping. BUE dressing CDI. Ayala draining yellow urine. 2L 02 via n/c. Fall precautions in place. Call light in reach
[2017-08-23 11:00] VITALS: BP 107/47
--- NOTE | 2017-08-23 11:40 | NUR ---
Pt ambulates in [place] w/ walker and 02 at 2 L/NC and CGA to nurse's station and rests and then continues on another 25 ft to rest. Unable to obtain Sp02 at this time. Resp slightly labored w/ activity - 02 increased to 3 L/NC and pt returns to room. Daughter here and encouraged by pt's walk and tolerance.
--- NOTE | 2017-08-23 14:30 | NUR ---
Pt ambulates to BR and has small loose brown stool and then showers w/ assist. 02 continues. Pt tolerates well and able to wash upper body well. Assisted w/ legs. Pt helps in drying self off. Pericare and de leon cath care done when returns to bed. Groin redness and moistness less and showing healing. pt states less uncomfortable with cleaning. Small ulcerated area on scrotum showing some healing.
[2017-08-23 15:54] VITALS: BP 106/50
--- NOTE | 2017-08-23 17:48 | NUR ---
Pt sitting up in chair visiting with daughter. Pt reports he feels very well today. Pt was able to ambulate in hallways twice. Pt also tolerated shower well. Generalized edema has improved as well. Pt denies pain. Call light in reach
[2017-08-23 18:58] VITALS: BP 101/50
--- NOTE | 2017-08-23 19:05 | NUR ---
REPORT RECEIVED FROM CAMILA Pineda RN.
[2017-08-23 22:32] VITALS: BP 103/56
--- NOTE | 2017-08-24 01:43 | NUR ---
PATIENT CONTINUES TO REST QUIETLY IN BED. PATIENT DOES NOT APPEAR TO BE IN ANY OBVIOUS DISTRESS AT THIS TIME. PATIENT'S POSITION HAS BEEN CHANGED Q2H THROUGHOUT THE NIGHT. O2 AT 2L VIA NC CONTINUES. HOB ELEVATED TO A 45 DEGREE ANGLE. BED RAILS UP X2. BED ALARM ARMED. PICHARDO PATENT AND DRAINING. CALL LIGHT WITHIN REACH. CLOSE MONITORING AND HOURLY ROUNDING CONTINUE.
[2017-08-24 05:35] VITALS: BP 104/42
--- NOTE | 2017-08-24 07:44 | NUR ---
REPORT GIVEN TO RICHARD Ware RN.
--- NOTE | 2017-08-24 07:45 | NUR ---
report from jovi jones
[2017-08-24 10:47] VITALS: BP 96/49
--- NOTE | 2017-08-24 14:00 | NUR ---
Patient returned from radiology department. Assisted into bed. Patient appears short of breath, but denies shortness of breath when asked. Oxygen at 2 liters via nasal cannula. Shikha care provided. Nystatin powder and interdry applied to groin. Barrier cream applied to scrotum. Indwelling urinary catheter to dependent drainage. Ayala is free flowing without kinks or twists. New stat lock applied to right thigh. Catheter care provided. Ti wraps applied to bilateral lower extremities. Intermittent weeping noted. Bilateral lower extremities elevated. Dressing to abrasion on right forearm removed, and new telfa applied. Patient denies needs or questions at this time. Fall precautions in place.
[2017-08-24 14:18] VITALS: BP 111/54
[2017-08-24 18:00] VITALS: BP 99/48
--- NOTE | 2017-08-24 19:10 | NUR ---
BEDSIDE REPORT RECIEVED FROM JOSEPHINE NUR. PATIENT RESTING IN BED, CALL LIGHT WITHIN REACH AND BED ALARM ON.
[2017-08-25 00:13] VITALS: BP 91/56
[2017-08-25 06:21] VITALS: BP 104/55
--- NOTE | 2017-08-25 07:00 | NUR ---
BEDSIDE REPORT RECEIVED FROM LEON BURTON.
--- NOTE | 2017-08-25 07:33 | NUR ---
SUPINE IN BED WITH HOB ELEVATED. DROWSY. HE DOES REPORT SLEEPING WELL. OXYGEN IN PLACE AT 2LPM VIA NC; HUMIDIFIED. DENIES PAIN. REMAINS ON 2000ML FLUID RESTRICTION, BUT ENCOURAGE TO REACH THAT LIMIT DAILY PER DR SHOEMAKER INSTRUCTION. SKIN TEARS TO BILAT ARM STILL PRESENT AND WITH SIGNS OF HEALING. LT UPPER ARM HAS SCAB INTACT; MEPILEX FOAM APPLIED. LT FOREARM HAS PARTIAL SCAB INTACT WITH MOIST WOUND BED; BANDAID APPLIED. RT UPPER ARM HAS MOIST WOUND BED; XTRASORB FOAM APPLIED AND SECURED WITH GAUZE WRAP AND ELASTIC NET. CRACK TO SKIN AT RT LATERAL SKIN FOLD AND LT GROIN FOLD. SCAB INTACT TO RT HAND BETWEEN BASES OF #4 AND #5 DIGIT; IT IS OPEN TO AIR. SCROTUM WOUND IS FLAKING AND OPEN TO AIR. SKIN AT SACRAL SPLIT ALSO FLAKING AND SKIN PINK. BILAT UPPER INNER THIGHS PINK AND APPEAR TO BE HEALING. PITTING EDEMA STILL PRESENT TO ABD, FLANKS, HIPS, BILAT LE. ABD APPEARS DISTENDED; SOFT WITH PALPATION. ECCHYMOSIS TO LOW ABD. LE ELEVATED ON PILLOW. HAS CALL LIGHT IN REACH.
--- NOTE | 2017-08-25 09:33 | NUR ---
WALKS IN HALLWAY WITH PHYSICAL THERAPY.
--- NOTE | 2017-08-25 10:33 | NUR ---
POSITION TO BED. BILAT LE WRAPPED WITH SHANTEL WRAP AND ELEVATED ON PILLOWS. NATALY CARE PROVIDED AND DESENEX POWER TO GROIN.
[2017-08-25 10:35] VITALS: BP 97/53
[2017-08-25 14:00] VITALS: BP 102/58
--- NOTE | 2017-08-25 17:24 | NUR ---
DAUGHTER HERE TO VISIT PATIENT.
[2017-08-25 18:18] VITALS: BP 111/68
--- NOTE | 2017-08-25 21:00 | NUR ---
Report received from Cheryle BURTON at shift change. Patient resting in bed. A/O x4. Denies pain. Humidified oxygen in place at 2L/NC. Denies shortness of breath at rest, states "thats what they say, when asked if he has shortness of breath with activity. Denies cough, "except when I take a cold drink". Remains of a 2000 ML/24 hr fluid restriction. Dressing to TAPAN and L TAPAN CDI. Bandaid to LFA moist. Old banaid removed and new one applied at this time. Partial scab remains intact. Assessment completed. Ayala cath to DD with clear yellow urine in bag. HS medications passed earlier by Lisandro Novoa RN. No difficulties with medications reported. Bilateral legs wrapped with adalid wraps at this time. Elevated on pillows and patient placed in trendlenberg position as he would tolerate for further elevation x30 minutes. Denies further wants or needs at this time.
[2017-08-26 00:09] VITALS: BP 97/55
--- NOTE | 2017-08-26 00:36 | NUR ---
Sleeping, no signs of pain or distress. Bed alarm on. Call light in reach.
--- NOTE | 2017-08-26 04:34 | NUR ---
Tylenol 650 Mg taken whole in applesauce for bilateral leg aches 09/01.
[2017-08-26 05:34] VITALS: BP 95/49
--- NOTE | 2017-08-26 06:53 | NUR ---
AM medications taken whole in applesauce without difficulty. States Tylenol helped his leg pain. Nebulizer tx taken via mouth piece but fell asleep during tx. Denies pain or needs.
--- NOTE | 2017-08-26 07:19 | NUR ---
Report to Earlene BURTON.
--- NOTE | 2017-08-26 09:00 | NUR ---
PT SHOWERED AND LYING IN BED GETTING NATALY CARE, GROIN FOLDS SIGNIFICANTLY BETTER, DESENEX APPLIED, PICHARDO CARE COMPLETED, TESTICLES STILL RED AND EDEMATOUS, BARRIER CREAM APPLIED TO SORE AREAS OF TESTES, PICHARDO DRAINING CLEAR YELLOW URINE AT THIS TIME, PT DENIES PAIN, STATES HE "FEELS WELL" TODAY AND JUST HAD "THE BEST SHOWER HES HAD SINCE HES BEEN HERE," TOLERATED SHOWER WELL, AMBULATORY WITH GAIT BELT AND WALKER 1:1 STAFF ASSISTANCE, BILATERAL ARM DRESSINGS APPLIED AT THIS TIME, WEEPING NOTED TO RIGHT LEG, LEGS SHANTEL WRAPPED AND ELEVATED ABOVE THE HEART, ARM WOUNDS BEGINNING TO DRY UP, LESS WEEPING NOTED TO LEFT LEG AND EDEMA NOTABLY BETTER, BILATERAL ARMS ARE STILL FLUID FILLED BUT ALSO IMPROVING, PT STATES HE IS LESS SOB, DENIES PAIN, PLEASANT AND COOPERATIVE WITH STAFF, DENIES FURTHER NEEDS, WILL REMAIN IN BED FOR 30 MINUTES WITH LEGS ELEVATED AND WRAPPED BEFORE RESUMING WITH THERAPY AND MORNING ROUTINE, BED ALARM ON AND CALL LIGHT WITHIN REACH
[2017-08-26 10:09] VITALS: BP 95/48
[2017-08-26 14:57] VITALS: BP 104/57
--- NOTE | 2017-08-26 15:09 | NUR ---
NO ACUTE CHANGES NOTED THIS SHIFT, PT IS TOLERATING THERAPY WELL AND SHOWING SLOW IMPROVEMENT DAILY AT THIS TIME, SMILING AFFECT, DENIES PAIN, DRESSINGS CDI TO BILATERAL ARMS, LEGS STILL MINIMALLY WEEPING, ORAL NYSTATIN DC'D PER THIS SHIFT, VITAL SIGNS STABLE, WILL CONTINUE TO MONITOR
--- NOTE | 2017-08-26 17:31 | NUR ---
PT SITTING UP IN CHAIR EATING SUPPER, DRINKING STRAWBERRY ENSURE PER REQUEST, ABLE TO TAKE MEDS WHOLE IN APPLESAUCE AND POTASSIUM CRUSHED IN APPLESAUCE, DENIES PAIN, SMILING AFFECT, DAUGHTER AT PATIENTS BEDSIDE AND ENCOURAGED AT RECENT PROGRESS MADE, PT'S ARM DRESSINGS DRY BILATERALLY, PICHARDO DRAINING WELL, PORT CAP CHANGED, FLUSHES WELL WITH BRISK BLOOD RETURN, NO CONCERNS NOTED AT SITE, PT UP IN CHAIR, BREATHING STABLE ON 2L O2 VIA NC, CALL LIGHT WITHIN REACH AND CHAIR ALARM ON, NO IMMEDIATE CONCERNS NOTED
[2017-08-26 18:12] VITALS: BP 121/57
--- NOTE | 2017-08-26 19:20 | NUR ---
Bedside shift report received from Earlene BURTON. Patient sitting in recliner. Daughter leaves for the night. A/O x 2. Self, place. Did not know date or year. Denies pain. Oxygen in place at 2L/NC. Denies shortness of breath at rest. Does have shortness of breath with exertion. Lungs CTA upper lobes. Diminished in BB. Cath patent to DD with clear yellow urine in bag. Dressings to bilateral arms CDI. Up to BR with FRONT END DRUPAL DEVELOPER. Had loose BM. Powder to buttocks, scrotum. groin foldes. Assisted to bed. Bilateral legs wrapped in acewraps and elevated x30 minutes. Bed alarm on. Call light in reach.
[2017-08-26 22:48] VITALS: BP 101/67
--- NOTE | 2017-08-27 04:47 | NUR ---
Repositioned Q 2 hours by staff. Has been resting quietly with no complaints of pain since 2199. Has Tylenol at that time for shoulder pain.
[2017-08-27 05:53] VITALS: BP 101/57
--- NOTE | 2017-08-27 06:28 | NUR ---
Scheduled AM medications taken whole in applesauce. Labs drawn via Port by RN. Denies pain. Bed alarm on. Call light in reach. Denies wants or needs.
[2017-08-27 06:40] LABS: BUN/CREATININE RATIO 40.2 (6.0-26.0); POTASSIUM 3.8 mmol/L (3.6-5.0)
--- NOTE | 2017-08-27 07:29 | NUR ---
Report to Ana Maria BURTON.
[2017-08-27 10:10] VITALS: BP 119/56
[2017-08-27 14:18] VITALS: BP 122/62
[2017-08-27 18:25] VITALS: BP 105/61
--- NOTE | 2017-08-27 19:10 | NUR ---
BEDSIDE REPORT RECIEVED FROM JOSEPHINE LOPEZ. PATIENT RESTING IN BED, CALL LIGHT WITHIN REACH AND BED ALARM ON.
--- NOTE | 2017-08-27 20:38 | NUR ---
PATIENT RESTING IN BED. SHIFT ASSESSMENT COMPLETED AT THIS TIME. PATIENT A/O X4, DENIES PAIN. LUNGS DIMINISHED WITH CRACKLES THROUGHOUT, DENIES COUGH, REPORTS SHORTNESS OF BREATH @ REST. O2 FLOWING VIA NASAL CANNULAR AND HUMIDIFIER @ 2 L/MIN. PICHARDO TO DEPENDENT DRAINAGE DRAINING CLEAR, YELLOW URINE. +2 PITTING EDEMA NOTED TO BLE AND GENERALIZED NON-PITTING EDEMA NOTED TO BODY. BLE WRAPPED AT THIS TIME WITH SHANTEL WRAPS, WILL TAKE OFF IN ABOUT AN HOUR. ABDOMEN WITH BRUISING, SIGNS OF HEALING. BILATERAL ELBOWS WITH ABRASIONS, DRESSINGS CDI. RIGHT HAND AND LEFT FOREARM WITH SKIN TEARS, BANDAIDS CDI. GROIN AND COCCYX REDDENED, DESENEX POWDER APPLIED. TURN Q2H CONTINUED. HS MEDICATIONS GIVEN TO PATIENT IN APPLESAUCE. PATIENT WITHOUT FURTHER NEEDS, WILL CONTINUE TO MONITOR. CALL LIGHT WITHIN REACH AND BED ALARM ON.
[2017-08-27 22:18] VITALS: BP 107/66
[2017-08-28 06:21] VITALS: BP 96/61
--- NOTE | 2017-08-28 08:00 | NUR ---
PT UP IN CHAIR EATING BREAKFAST, RR IS TACHY, BUT BREATHING O2 SATURATION IS STABLE ON 2L O2 VIA NC, GOAL TODAY IS TO TITRATE PT BACK TO ROOM AIR PER PATIENT AND PHYSICIAN REQUEST, WILL ALLOW PT TO GET THROUGH MORNING ROUTINE DUE TO TACHY RR AND MOIST LUNG SOUNDS, PT SWITCHED TO PO LASIX FROM IV, LEGS ARE IMPROVING WITH 2+ BILATERAL PITTING EDEMA AND MINIMAL WEEPING TO RIGHT LEG THIS AM, COMPLEX ASSESSMENT COMPLETED AT CHARTED, PT NOT ABLE TO SPEAK IN FULL SENTENCES INTERMITTENTLY DUE TO SOB BUT PT DENIES FEELING ANY INCREASE IN ACUTE SYMPTOMS AT THIS TIME, DENIES FEELING SOB, STATES HE IS "FEELING BETTER EVERY DAY," PT REMAINS UP IN CHAIR WITH CHAIR ALARM ON AND CALL LIGHT WITHIN REACH UPON EXITING ROOM, WILL BEGIN TITRATING O2 AFTER PATIENTS SHOWER THIS AM PER PT REQUEST
[2017-08-28 09:58] VITALS: BP 116/56
--- NOTE | 2017-08-28 10:30 | NUR ---
O2 TITRATED TO 1L O2 VIA NC AT THIS TIME, O2 95% AT REST ON 1L, PT GETTING READY TO WORK WITH THERAPY, WILL MONITOR O2 WITH EXERTION THROUGHOUT THERAPY SESSION
--- NOTE | 2017-08-28 11:00 | NUR ---
THERAPY REPORTS PT DESATURATED TO 87% WHILE PT REMOVED O2 FROM NOSE IN BATHROOM WHILE BRUSHING TEETH, WHILE ON 1L O2 PATIENT'S O2 SATURATION REMAINED STABLE, WILL ALLOW PT TO REMAIN ON 1L O2 VIA NC AT THIS TIME DUE TO DESATURATION WITH ACTIVITY ON ROOM AIR
--- NOTE | 2017-08-28 16:26 | NUR ---
PT REMAINS AT 95% WITH EXERTION ON 1L O2 VIA NC WHILE AMBULATING IN THE HALLS AT THIS TIME, WILL CONTINUE TO MONITOR AND JENNIFER PT DOWN ON OXYGEN AT A SAFE RATE
[2017-08-28 18:04] VITALS: BP 143/61
--- NOTE | 2017-08-28 19:05 | NUR ---
Bed side report received from Earlene Gilbert RN. Pt resting in bed, awake and a/o x 3. Bed alarm set. Denies having any pain. Denies having any needs. Oxygen 1L/NC. Dressing to right and left lower arms CDI.
--- NOTE | 2017-08-28 20:25 | NUR ---
Both right and left lower legs wrapped with adalid wraps and elevated. Pt awake and a/o x 3. Denies pain. Becomes SOB with exertion. Oxygen on at 1L/NC.
--- NOTE | 2017-08-28 20:30 | NUR ---
Sa02 95% on 1L/NC. Pulse 89, respirations 24.
--- NOTE | 2017-08-29 | NUR ---
Q hourly checks done. Bed alarm set. Oxygen on at 1L/NC. Eyes closed even respirations.
--- NOTE | 2017-08-29 04:33 | NUR ---
Q hourly checks done. At 0420 Pt used call light. Ambulated to the bathroom, used walker, gait belt and ui software engineer socks on. Had small liquid stool. Dressing applied to right elbow. No active drainage noted. Hospital gown noted have dry drainage on right sleve.
[2017-08-29 06:10] VITALS: BP 129/49
--- NOTE | 2017-08-29 07:00 | NUR ---
Bed side report given to Earlene Gilbert RN. Pt resting in bed, eyes closed even respirations.
--- NOTE | 2017-08-29 08:15 | NUR ---
PT UP IN CHAIR EATING BREAKFAST, STILL STATES HIS APPETITE IS NOT GREAT BUT IS ATTEMPTING TO EAT BREAKFAST, PT ABLE TO TAKE PILLS 1 @ A TIME WHOLE IN APPLESAUCE WITH NO COUGHING NOTED, ENSURE PROVIDED, PT STATES HE WILL NOT DRINK THE NEPRO HE HATES THE FLAVOR, REQUESTS TO SWITCH BACK TO STRAWBERRY OR VANILLA ENSURE, PT STILL NOT ALLOWED ANY CAFFEINE OR CHOCOLATE, ALL DRESSINGS TO BUE CDI, NO SIGNS OF DRAINAGE AT THIS TIME, GROIN FOLDS PINK BUT APPEAR MUCH BETTER THAN IN THE PAST, DESENX APPLIED, PT DENIES PAIN TO SITES, COMPLEX ASSESSMENT COMPLETED AND CHARTED, NO ACUTE CHANGES NOTED, PT STILL BREATHING ON 1L O2 THROUGHOUT MORNING ROUTINE, NO FURTHER NEEDS AT THIS TIME, PT IS UP IN CHAIR WITH CALL LIGHT WITHIN REACH AND CHAIR ALARM ON UPON EXITING ROOM
[2017-08-29 10:21] VITALS: BP 112/53
--- NOTE | 2017-08-29 10:32 | NUR ---
PT UP AMBULATING IN SON WITH STAFF ASSISTANCE 1:1 USING GAIT BELT AND WALKER, GAIT IS STEADY BUT PT REQUIRING A BREAK AT THE NURSES STATION DUE TO FATIGUE, SMILING AFFECT, DENIES PAIN, MAKING SLOW PROGRESS DAILY WITH PHYSICAL ACTIVITY, FILIBERTO HOSE ON, MINIMAL WEEPING TODAY TO BLE, ON 1L PT REMAINS AT 92% WITH AMBULATION, WHEN O2 IS REMOVED PT DESATURATES TO 87%, STILL REQUIRING 1L O2 AT THIS TIME, WILL CONTINUE TO MONITOR AND ATTEMPT TO JENNIFER PATIENT TO ROOM AIR SAFELY
--- NOTE | 2017-08-29 13:13 | NUR ---
PT UP AMBULATING IN HALLS WITH 1L O2 VIA NC, O2 SATURATION 92% AT THIS TIME WITH AMBULATION, WILL CONTINUE TO MONITOR O2 SATURATION
[2017-08-29 14:00] VITALS: BP 111/53
[2017-08-29 18:14] VITALS: BP 122/61
--- NOTE | 2017-08-30 05:27 | NUR ---
Resting quietly all shift. Repositioned by staff. No verbalization of pain. Bed alarm on. Call light in reach. Remains of 2000 ML/24 hr FR.
[2017-08-30 05:58] VITALS: BP 110/51
--- NOTE | 2017-08-30 06:29 | NUR ---
Rested well all night. Took AM medications whole in applesauce without difficulty, one at a time. Reminded by nurse to tuck chin to swallow. Denies pain. Dressings to bilateral arms CDI. Bed alarm on. Call light in reach.
--- NOTE | 2017-08-30 07:21 | NUR ---
jamel report with Yandy STACY
--- NOTE | 2017-08-30 07:21 | NUR ---
Report to Sofia BURTON.
[2017-08-30 10:00] VITALS: BP 112/56
[2017-08-30 14:30] VITALS: BP 123/55
[2017-08-30 18:50] VITALS: BP 103/59
--- NOTE | 2017-08-30 20:24 | NUR ---
BEDSIDE REPORT TO VALORIE STACY
--- NOTE | 2017-08-30 20:30 | NUR ---
Bedside shift report received from Sofia BURTON. Patient rests in bed with eyes closed. Oxygen in place at 1L/NC. Bed alarm on. Call light in reach.
--- NOTE | 2017-08-30 21:10 | NUR ---
Awaken for HS medications and assessment. Denies pain at this time. Oxygen in place at 1L/NC. Denies shortness of breath or cough. Lungs CTA upper lobes, diminished lower lobes. Dressings to bilateral arms CDI. Groin folds pink, power applied. Edema decreasing in general. 3+ to RLE, 2+ to LLE. Legs wrapped in adalid wraps and elevated per orders. Takes scheduled HS medications whole in applesauce without difficulty. K+ is taken crushed in applesauce. Patient reminded to tuck chin and swallow. Remains on 2000 ML/24 fluid restriction. Ayala cath patent to DD with clear yellow urine in bag. Denies wants or needs. Bed alarm on. Call light in reach. Remains a Q 2 hour turn.
[2017-08-30 22:48] VITALS: BP 103/53
--- NOTE | 2017-08-31 00:03 | NUR ---
Rests with eyes closed. No signs of pain or distress. Oxygen in place a 1L/NC. Bed alarm on. Call light in reach.
--- NOTE | 2017-08-31 06:00 | NUR ---
Awaken by FURNACE MECHANIC HELPER for turns and V/S. AM medications taken at this time. Takes whole in applesauce without difficulty. Denies pain. Rested well all night.
[2017-08-31 06:12] VITALS: BP 113/52
[2017-08-31 06:30] LABS: HEMATOCRIT 35.8 % (42.0-52.0); HEMOGLOBIN 10.9 g/dL (13.5-18.0); MEAN CELL VOLUME 102 fl (78-100); MEAN CORPUSCULAR HEMOGLOBIN 31 pg (27-31); MEAN CORPUSCULAR HGB CONC 30 g/dL (33-37); MEAN PLATELET VOLUME 9.5 fl (7.4-10.4); PLATELET COUNT 226 K/mm3 (130-400); RED BLOOD COUNT 3.52 M/mm3 (4.20-5.60); RED CELL DISTRIBUTION WIDTH 20.1 % (11.5-14.5); WHITE BLOOD COUNT 7.2 K/mm3 (4.8-10.8)
[2017-08-31 06:37] LABS: BUN/CREATININE RATIO 35.6 (6.0-26.0); CALCIUM 8.1 mg/dL (8.4-10.2); POTASSIUM 3.7 mmol/L (3.6-5.0)
--- NOTE | 2017-08-31 07:20 | NUR ---
bedside report received from asiya biggs lpn
--- NOTE | 2017-08-31 07:21 | NUR ---
Report to Nikia BURTON
[2017-08-31 07:49] LABS: HYPOCHROMIA 1+; LYMPHOCYTE 17 % (20-51); MONOCYTE 10 % (3-10); NEUTROPHILS 66 % (42-75); POLYCHROMASIA 1+
--- NOTE | 2017-08-31 07:50 | NUR ---
patient sitting up in recliner. shift assessment complete. patient alert and oriented x4. denies any pain or discomforts at this time. on oxygen via nasal cannula at 1l. does report having shortness of breath this morning. when asked if it is worse than his usual states "oh i don't know maybe a little" does not appear to be in any distress. respirations even and unlabored. dressing to right elbow saturated with drainage. dressing to left elbow clead dry and intact. de leon catheter to dependent drainage. patient's groin folds and sacral split red. sacral split skin dry and flaking. dessenex powder applied to area. patient's call light within reach. chair alarm on.
[2017-08-31 10:33] VITALS: BP 130/61
--- NOTE | 2017-08-31 12:45 | NUR ---
patient's sp02 93% on 1L oxygen via nasal cannula. respirations 21. heart rate 98. patient asked if he is experiencing shortness of breath. patient states "yeah maybe a little" when asked if shortness ofbreath is worse than usual states "oh no i don't think so"
[2017-08-31 14:12] VITALS: BP 104/56
--- NOTE | 2017-08-31 14:46 | NUR ---
in to see patient at this time.
[2017-08-31 18:12] VITALS: BP 104/62
--- NOTE | 2017-08-31 19:09 | NUR ---
BEDSIDE REPORT GIVEN TO VALORIE SANTIAGO LPN
--- NOTE | 2017-08-31 21:00 | NUR ---
Bedside shift report received from Nikia BURTON. Patient rests in bed. A/O x4. Denies pain. Oxygen in place at 1L/NC. Denies shortness of breath at rest. Still has some shortness of breath with exertion. Scheduled HS medications taken whole in applesauce, K+ taken crushed. Remains on a 2000 ML/24 hr. FR. Up to BR with 1:1 assist and walker for BM. Buttocks and scrotol area dry, flakey and deep purple in color. No open areas. Desiten powder applied. Bilateral groins light pink. Non-open. powder applied. Abdomen remains bruised with deep purple ecchomosis in the middle fanning out galaviz to the sides of abdomen. Tow Bar Driver purple to the edges the the abdomen areas. Denies pain at sights. Dressing slid down bilateral arms. Removed and arms redressed. L arm skin tear area scabbed and dried with no draining noted. Dressed with a telfa, gauze and wrapped with Bentley. Bandaid removed to L forearm. Area with yellow gooey center. Cleansed with NS and new bandaid lightly applied. R arm area has dimed sized light scabbed area, no active drainage at this time but arm does drain at times as much as 2-3 times daily, chux or sheets noted to be wet. No new area's where drainage could be coming from found. Xtrasorb foam applied, covered with 4x4 gauze and wrapped with bentley. Bilateral legs wrapped with adalid wraps per order and legs elevated with pillows and bed x 30-60 minutes. Denies wants or needs. Bed alarm on. Call light in reach.
[2017-08-31 22:00] VITALS: BP 114/68
--- NOTE | 2017-09-01 00:56 | NUR ---
Repositioned Q 2 hours. Denies pain. Rests with oxygen in place at 1L/NC. Bed alarm on. Call light in reach.
[2017-09-01 05:58] VITALS: BP 115/72
--- NOTE | 2017-09-01 07:10 | NUR ---
bedside report received from asiya biggs lpn
--- NOTE | 2017-09-01 07:11 | NUR ---
Report to Nikia BURTON.
--- NOTE | 2017-09-01 07:45 | NUR ---
patient up to recliner for breakfast. shift assessment complete. patient alert and oriented x4. denies any pain or discomforts at this time. when asked how he is breathing today states "i'm feeling pretty good today" patient's oxygen removed at this time. edema to bilat lower ext seems improved today. call light within reach. chair alarm on.
--- NOTE | 2017-09-01 08:00 | NUR ---
patient's sp02 on room air 92% heart rate 106. patient denies any shortness of breath or difficulties breathing. reports tolerating being off oxygen well.
--- NOTE | 2017-09-01 09:15 | NUR ---
kulwant lepe occupational therapist reports that patient's sp02 90-89% heart rate 112. patient placed back on oxygen via nasal cannula at 1L.
[2017-09-01 10:15] VITALS: BP 115/48
--- NOTE | 2017-09-01 10:30 | NUR ---
patient lying in bed heart rate 106 sp02 96% on 1L. patient reports breathing feels "pretty good" today. denies any shortness of breath or difficulties breathing.
[2017-09-01 14:00] VITALS: BP 106/75
[2017-09-01 18:12] VITALS: BP 124/69
--- NOTE | 2017-09-01 19:01 | NUR ---
BEDSIDE REPORT GIVEN TO VALORIE SANTIAGO LPN
--- NOTE | 2017-09-01 21:00 | NUR ---
Bedside shift report received from Nikia BURTON. Patient resting in bed. A/O. Denies pain. Oxygen in place at 1L/NC. Denies pain. Denies shortness of breath but respirations seem more labored tonight than previous nights. HR tachy. 110. Lungs diminished in bases. Clear in upper lobes. Continues to have edmema in BLE. Dressings to BUA CDI. BLE wrapped in adalid wraps and elevated. Scheduled HS medications taken whole in applesauce. Desitin powder applied to groin, scrotum and buttocks. Repositioned to L side. Remains on a 2000 ML/24 hour fR. Bed alarm on. Call light in reach.
[2017-09-01 23:09] VITALS: BP 119/62
[2017-09-02 06:02] VITALS: BP 110/71
--- NOTE | 2017-09-02 07:25 | NUR ---
Report to Jael BURTON.
[2017-09-02 10:11] VITALS: BP 95/66
[2017-09-02 14:00] VITALS: BP 106/67
[2017-09-02 18:00] VITALS: BP 106/64
--- NOTE | 2017-09-02 19:00 | NUR ---
Bed side report received from Jael Novoa RN. Pt resting in recliner, awake and a/o x 3. Denied having any pain or SOB.
--- NOTE | 2017-09-03 04:30 | NUR ---
Q hourly checks done. Bed alarms has been set. Pt repositioned Q 2 hours. Has been resting in bed with eyes closed. Oxygen at 1L/NC. At 0400 Pt awake and a/o x 3. Ayala catheter to dependant drainage. Urine color dark yellow. Denied having any needs or concerns.
[2017-09-03 06:10] VITALS: BP 105/51
[2017-09-03 06:36] LABS: BUN/CREATININE RATIO 40.9 (6.0-26.0); CALCIUM 8.1 mg/dL (8.4-10.2); POTASSIUM 3.7 mmol/L (3.6-5.0)
[2017-09-03 06:39] LABS: HEMATOCRIT 34.7 % (42.0-52.0); MEAN CELL VOLUME 100 fl (78-100); MEAN CORPUSCULAR HEMOGLOBIN 32 pg (27-31); MEAN CORPUSCULAR HGB CONC 32 g/dL (33-37); MEAN PLATELET VOLUME 10.2 fl (7.4-10.4); PLATELET COUNT 204 K/mm3 (130-400); RED BLOOD COUNT 3.48 M/mm3 (4.20-5.60); RED CELL DISTRIBUTION WIDTH 18.9 % (11.5-14.5); WHITE BLOOD COUNT 9.9 K/mm3 (4.8-10.8)
[2017-09-03 06:53] LABS: LYMPHOCYTE 14 % (20-51); MONOCYTE 9 % (3-10); NEUTROPHILS 76 % (42-75)
--- NOTE | 2017-09-03 07:10 | NUR ---
Bed side report given to Jael Novoa RN
[2017-09-03 10:20] VITALS: BP 109/55
[2017-09-03 11:03] LABS: URINE APPEARANCE CLOUDY; URINE BILIRUBIN NEGATIVE (NEGATIVE); URINE BLOOD 250 ery/uL (NEGATIVE); URINE COLOR YELLOW; URINE GLUCOSE NEGATIVE (NEGATIVE); URINE KETONE NEGATIVE (NEGATIVE); URINE LEUKOCYTE ESTERASE 1+ (NEGATIVE); URINE NITRATE NEGATIVE (NEGATIVE); URINE PROTEIN(semi-quant) TRACE mg/dL (NEGATIVE); URINE UROBILINOGEN NORMAL (NORMAL)
[2017-09-03 13:38] VITALS: BP 97/61
--- NOTE | 2017-09-03 13:57 | NUR ---
Dr. Sol at bedside.
[2017-09-03 18:00] VITALS: BP 120/69
--- NOTE | 2017-09-03 19:10 | NUR ---
BEDSIDE REPORT RECIEVED FROM JOSEPHINE NUR. PATIENT RESTING IN BED, CALL LIGHT WITHIN REACH AND BED ALARM ON.
--- NOTE | 2017-09-03 21:00 | NUR ---
PATIENT RESTING IN BED. SHIFT ASSESSMENT COMPLETED AT THIS TIME. PATIENT A/O X4, DENIES PAIN. LUNGS CTA, DENIES COUGH, SHORTNESS OF BREATH EVIDENT WITH AMBULATION. +2 PITTING EDEMA NOTED TO BLE, TEDS REMOVED. WOUNDS TO BUE LEFT INDU. LEFT HAND EDEMATOUS. COCCYX AND GROIN REDDENED. PICHARDO CATHETER TO DEPENDENT DRAINAGE DRAINING CLEAR, YELLOW URINE. O2 FLOWING VIA NASAL CANNULA @ 1 L/MIN. PATIENT CONTINUED ON Q2H TURN SCHEDULE. HS MEDICATIONS GIVEN WITH APPLESAUCE. PATIENT WITHOUT FURTHER NEEDS AT THIS TIME, WILL CONTINUE TO MONITOR. CALL LIGHT WITHIN REACH AND BED ALARM ON.
[2017-09-04 06:15] VITALS: BP 102/62
--- NOTE | 2017-09-04 07:30 | NUR ---
Patient alert and oriented. Sitting up in recliner. Denies pain. Oxygen at 1 liter via nasal cannula. Indwelling urinary catheter to dependent drainage. Ayala is free flowing without kinks or twists. Securement device intact to right thigh. Abrasion to right forearm and skin tear to right hand are both open to air and scabbed. Abrasion to left upper arm is also open to air and scabbed. No weeping noted to extremities at this time. Patient denies needs or questions at this time. Fall precautions in place.
[2017-09-04 10:00] VITALS: BP 114/48
[2017-09-04 15:42] VITALS: BP 130/59
[2017-09-04 18:02] VITALS: BP 117/64
--- NOTE | 2017-09-04 19:00 | NUR ---
Bedside shift report received from Jael BURTON. Patient resting supine in bed with oxygen in place at 1L/NC. A/O. Denies pain. Breathing is somewhat labored and tachepnic. Patient does admit to this nurse and day nurse he is having a harder time breathing then previous days, but he has been denying this to DR. Sol on rounds. Denies current wants or needs at this time. Bed alarm on. Call light in reach.
--- NOTE | 2017-09-04 21:00 | NUR ---
Assessment completed. Patient alert and oriented except unsure of correct year. Denies pain. RR is tachypneic at 32. with occasional pursed lipped breathing and use of abdominal muscles. Lungs sounds diminished all fieldes. Abdomen obese with audible BS. Reports BM today. Ayala Cath patent with clear yellow urine in bag. Day RN report urinary output had decreased with 500 ML of output today. 3+ edema to BLE. All Skin tears to bilaral upper extremities are INDU, dry, scabbed and not draining. RUE does have +! edema. Patient agreeable to try SCD's tonight since legs are no longer draining fluid. Buttock, Groin and Scrotom remain red, but improving. No open areas noted. Continue to apply Desitin Powder and turn Q 2 hours while in bed to off load buttocks. Shikha and cath care give by this nurse at this time. Scheduled HS medications taken whole in applesauce without difficulty. Patient reminded to tuck chin when swallowing. Used I.S. pulled 250 ML x10. Used flutter valve x10. Bed alarm on. Call light in reach.
--- NOTE | 2017-09-04 22:25 | NUR ---
Contacted Dr. Sol with concerns about patient's increased HR and now RR over past few days. Also decrease in urinary output. Patient has denied feeling short of breath to but did tell this nurse so and RR is 32 at rest in bed. Orders received, to give extra dose of 20 MG of lasix PO tonight. Lasix will increase to 60 MG PO Bid. and K+ will increase to 30 MG PO BID . BMP in AM.
--- NOTE | 2017-09-04 22:30 | NUR ---
Lasix 20 MG taken PO at this time. Patient updated on new orders. Denies questions. Ayala catheter emptied at this time. Has 340 ML in bag.
[2017-09-05 00:50] VITALS: BP 115/61
--- NOTE | 2017-09-05 05:25 | NUR ---
Requested Tylenol for Knee pain 10/01. Scheduled AM medications given at this time also. 525 ML of urinary output since Lasix given at 2225. Total 865 ML this shift.
[2017-09-05 06:20] VITALS: BP 107/70
--- NOTE | 2017-09-05 06:37 | NUR ---
Rests with eyes closed, after Tylenol taken. No signs of pain or distress. Bed Weight up. 0.7 lbs. Bed alarm on. Call light in reach.
[2017-09-05 07:29] LABS: BUN/CREATININE RATIO 41.3 (6.0-26.0); CALCIUM 8.1 mg/dL (8.4-10.2)
--- NOTE | 2017-09-05 07:30 | NUR ---
Report to Ana Maria BURTON.
--- NOTE | 2017-09-05 09:56 | NUR ---
Pt sits up in bed to swallow PO meds. Has increased difficulty swallowing K+ especially. Meds given with applesauce. Is able to cough up one pill that was stuck. Ended up cutting remaining K+ in half and pt was able to swallow more easily. Pt noted to have labored RR, 24/minute with abdominal muscle involvement. R arm noted with non-pitting edema. No drainage noted from any extremeties.
[2017-09-05 10:00] VITALS: BP 109/69
--- NOTE | 2017-09-05 10:56 | NUR ---
Notify Dr. Sol of lab results. Instructions to fluid restrict to 1500ml for today. Encourage pt to ambulate BID.
[2017-09-05 14:00] VITALS: BP 106/68
[2017-09-05 18:34] VITALS: BP 132/50
--- NOTE | 2017-09-05 19:00 | NUR ---
Bed side report received from Ana Maria Mcgee RN. Pt resting in bed, eyes closed even respirations. Bed alarm set. Oxygen at 1L/NC.
--- NOTE | 2017-09-05 20:15 | NUR ---
Pt resting in bed, eyes closed even respirations. Opens eyes when spoken too. Evening medication in apple sauce without difficulty. Oxygen at 1L/NC. Sa02 93-94%. Ayala catheter to dependant drainage. Urine color yellow.
[2017-09-05 22:49] VITALS: BP 114/49
--- NOTE | 2017-09-06 00:05 | NUR ---
Q hourly checks done. Bed alarm on. Resting in bed eyes closed even respiration. Ayala catheter to dependant drainage.
--- NOTE | 2017-09-06 05:00 | NUR ---
Continues to rest in bed, eyes closed with even respirations. Bed alarm set. Oxygen on at 1L/NC. Ayala catheter to dependant drainage. At 0440 Pt awake and a/o x 3. Denies having any needs of concerns. Denies having any pain.
[2017-09-06 06:03] VITALS: BP 134/53
--- NOTE | 2017-09-06 07:14 | NUR ---
Bed side report done with Ana Maria Mcgee RN. Pt resting in bed, eyes closed with even respirations. Bed alarm on. Ayala catheter to dependant drainage. Oxygen on at 1L/NC.
--- NOTE | 2017-09-06 09:30 | NUR ---
Pt denies pain. Reports that he is tired and wants to return to bed. Pt given PO meds in applesauce, larger pills cut in half before administering. Pt continues on 1500ml fluid restriction, weight did decrease approx 1# in last 24 hours. Indwelling de leon catheter intact with clear yellow urine to dependant drainage. R arm continues with +1 pitting edema, no drainage from any extremity at this time. Assist pt to stand, transfer to bed and lie down. Bed low/locked, call light within reach, feet elevated, bed alarm on.
[2017-09-06 10:23] VITALS: BP 101/65
[2017-09-06 14:14] VITALS: BP 113/63
[2017-09-06 17:55] VITALS: BP 103/69
--- NOTE | 2017-09-06 19:10 | NUR ---
Bedside shift report to Satrr Cruz, CAT SCAN TECH
--- NOTE | 2017-09-06 20:10 | NUR ---
Bedside shift report received from Ana Maria BURTON. Patient rests supine in bed. A/O. Denies pain. Oxygen in place at 1L/NC. Non-labored at rest. Continues to have SOB with any exertion, even when staff is exerting him with repositioning. Lungs CTA, diminished in bases. Continues to have +1 edema to RUE. 3+ to BLE. All skin tears INDU to BUE, no weeping noted. Groin folds cleansed with soap and water, cath care given. Has bleeding area, open abrasion to L inner thigh crease. inner dry placed to protect. Desitin powder to scrotom, groin and buttocks. PO medications taken whole in applesauce one at a time. No problems with swallowing. Remains on a 1500 ML fluid restriction. SCD's applied. Repositoned to R side. Bed alarm on. Call light in reach.
--- NOTE | 2017-09-07 00:10 | NUR ---
Requests and given Tylenol for L shoulder pain 09/01. Takes whole with applesauce, swallows without difficulty. Repositioned Q 2 hrs by staff. Bed alarm on. Call light in reach.
--- NOTE | 2017-09-07 01:16 | NUR ---
Resting with eyes closed. No signs of pain or distress.
[2017-09-07 06:19] VITALS: BP 93/59
--- NOTE | 2017-09-07 07:25 | NUR ---
Report to Sofia BURTON.
--- NOTE | 2017-09-07 07:26 | NUR ---
REPOPRT FROM VALORIE STACY
--- NOTE | 2017-09-07 09:00 | NUR ---
AM ASSESSMENT COMPLETED, BREATH SOUNDS FAIRLY CLEAR WITH DIMISNISHED BASES, PATIENT DENIES SHORT OF AIR AT THIS TIME, OXYGEN CONTINUES AT 1L/NC CONTINUOUS, PICHARDO PATENT
[2017-09-07 09:19] LABS: ALBUMIN 2.6 g/dL (3.5-5.0); BUN/CREATININE RATIO 38.4 (6.0-26.0); CALCIUM 8.6 mg/dL (8.4-10.2); POTASSIUM 4.4 mmol/L (3.6-5.0); TOTAL BILIRUBIN 1.2 mg/dL (0.2-1.3); TOTAL PROTEIN 5.4 g/dL (6.3-8.2)
[2017-09-07 10:30] VITALS: BP 104/62
[2017-09-07 15:04] VITALS: BP 108/64
--- NOTE | 2017-09-07 16:10 | NUR ---
PHYSICAL THERAPY DESCRIBES TO THIS NURSE TAHT PATIENT IS UNABLE TO PARTICIPATE THIS AFTERNOON DUE TO BEING DIZZY AND FEELING SHORT OF AIR, PRN XOPENEX IS GIVEN
[2017-09-07 18:27] VITALS: BP 104/56
--- NOTE | 2017-09-07 19:02 | NUR ---
BEDSIDE REPORT TO VALORIE STACY
--- NOTE | 2017-09-07 19:55 | NUR ---
Bedside shift report received from Sofia BURTON. Patient returns from bathroom with RN. HS cares received. Positioned in bed. Pericares given. L groin open area noted. Celeste Begum APRN notified and gives orders to apply bacitracin and telfa and make sure Dr. Sol is notified of area. Cath care also given. Groin folds, scrotom and buttocks remain reddened but improved. Buttocks has flaking skin. Scrotom has some small open areas. Desinex powder applied per order. Patients assessment completed. Has some dyspena with exertion from BR and with rolling back and forth with repositoning in bed. Lungs diminished all kumar. HR sl tachy. Abdomen obese Soft. BS active. Ayala is patent to DD with clear yellow urine. Bilateral arm wounds are all dry and scabbed with no drainage noted. R upper are with +1 edema. BLE with 2+ edema. SCD's applied as legs have no drainage. Patient denies pain. Bed alarm on. Call light in reach. Remains of a 1500 ML FR.
--- NOTE | 2017-09-07 22:30 | NUR ---
Dr. Sol calls, updated on L [place], ok with bacitracin and telfa tx. Also orders to increase FR to 2000 ML/24 hrs.
--- NOTE | 2017-09-08 04:55 | NUR ---
Has been resting quietly with no signs of distress. Repositoned by staff. Did refuse x2 to reposition onto side. Allowed to stay on back per request. Bed alarm on. Call light in reach.
[2017-09-08 06:37] VITALS: BP 98/44
--- NOTE | 2017-09-08 07:18 | NUR ---
Report to Ana Maria BURTON.
--- NOTE | 2017-09-08 07:30 | NUR ---
Pt denies feeling dizzy/lightheaded upon getting up this AM.
--- NOTE | 2017-09-08 09:20 | NUR ---
Pt denies pain this AM. Lungs CTA, bases diminished. R arm with non-pitting edema, no drainage. Pt denies SOB but continues with labored breathing. Skin tear to L groin fold, area is moist with granulation tissue noted in center. Apply bacitracin and telfa to area. Surrounding groin area is reddened, apply desinex powder. Also powder in abdominal fold although the skin in this area is intact and without irritation. BLE all skin intact, not leaking, 2+ pitting edema.
[2017-09-08 11:01] VITALS: BP 104/58
[2017-09-08 14:12] VITALS: BP 103/52
[2017-09-08 18:21] VITALS: BP 86/40
--- NOTE | 2017-09-08 19:19 | NUR ---
Bedside shift report to Lisandro Elizabeth RN
--- NOTE | 2017-09-08 20:22 | NUR ---
PATIENT RESTING IN BED. SHIFT ASSESSMENT COMPLETED AT THIS TIME. PATIENT A/O X4, DENIES PAIN. LUNGS CTA, DENIES COUGH, SHORTNESS OF BREATH EVIDENT WITH EXERTION WITH TACHYPNEA AND LABORED BREATHING AT REST. +2 PITTING EDEMA NOTED TO BLE. NON-PITTING EDEMA NOTED TO BUE. SKIN TEAR NOTED TO RIGHT HAND, INDU. SKIN TEAR NOTED TO LEFT GROIN, BACITRACIN APPLIED WITH TELFA AND INTERDRY. GROIN REDDENED, DESENEX POWDER APPLIED. BUTTOCK FLAKING, DESENEX POWDER APPLIED. PICHARDO CATHETER TO DEPENDENT DRAINAGE, DRAINGING PALE YELLOW CLEAR URINE. O2 FLOWING VIA NASAL CANNULA @ 1 L/MIN. Q2H TURN SCHEDULE CONTINUED. HS MEDICATIONS GIVEN IN APPLESAUCE. PATIENT WITHOUT FURTHER NEEDS, WILL CONTINUE TO MONITOR. CALL LIGHT WITHIN REACH AND BED ALARM ON.
[2017-09-08 22:45] VITALS: BP 101/61
[2017-09-09 05:34] VITALS: BP 97/65
--- NOTE | 2017-09-09 07:10 | NUR ---
BEDSIDE REPORT GIVEN TO JOSEPHINE LOPEZ. PATIENT RESTING IN BED, CALL LIGHT WITHIN REACH AND BED ALARM ON.
--- NOTE | 2017-09-09 09:20 | NUR ---
Pt swallows PO meds with applesauce, without difficulty. Pt denies SOB. No breath sounds noted to LLL. Performed pericare, applied RICKEY/telfa to skin tear in L groin. Applied desenex powder and interdry to groin and abdominal folds. Noted to have genital edema with cracking to skin of L scrotum and bleeding in this area also. Applied RICKEY to these cracks. BLE with 2-3+ pitting edema, FILIBERTO hose applied at this time.
[2017-09-09 09:58] VITALS: BP 97/59
--- NOTE | 2017-09-09 12:48 | NUR ---
Pt calls, requests to return to bed. Lunch tray noted to have only a few bites gone. Pt did drink ensure and lemonade. Reports that he is tired and "could sleep until 1600." Assist pt to lie down, feet elevated, call alarm in reach, bed alarm set.
[2017-09-09 14:06] VITALS: BP 104/56
--- NOTE | 2017-09-09 16:38 | NUR ---
Contact Dr. Sol with update on pt current condition. Inform of increased lethargy and refusing PT this AM. Dr. Sol reports that he will order labs and come see pt and daughter tomorrow.
[2017-09-09 18:51] VITALS: BP 112/55
--- NOTE | 2017-09-09 19:00 | NUR ---
BEDSIDE REPORT RECIEVED FROM JOSEPHINE LOPEZ. PATIENT RESTING IN BED, CALL LIGHT WITHIN REACH AND BED ALARM ON.
--- NOTE | 2017-09-09 20:24 | NUR ---
PATIENT RESTING IN BED. SHIFT ASSESSMENT COMPLETED AT THIS TIME. PATIENT A/O X4, DENIES PAIN. LUNGS CTA, DENIES COUGH, SHORTNESS OF BREATH EVIDENT ON EXERTION. PATIENT TACHYCARDIC AND TACHYPNIC. +2 BLE PITTING EDEMA NOTED, 2 PILLOWS PLACED UNDER LEGS FOR ELEVATION. NON-PITTING EDEMA NOTED TO BUE AND EXTERNAL GENITALIA. GROIN REDDENED, INTERDRY AND DESENEX POWDER APPLIED. SKIN TEAR TO LEFT GROIN DRESSED WITH TELFA AND BACITRACIN WITH DESENEX POWDER AND INTERDRY APPLIED. RIGHT HAND SKIN TEAR ROLL PRESS OPERATOR. PICHARDO CATHETER SECURED, TO DEPENDENT DRAINAGE DRAINING CLEAR, PALE YELLOW URINE. O2 FLOWING VIA NASAL CANNULA @ 1 L/MIN. PATIENT REMAINS ON A 2000 ML FLUID RESTRICTION, ALLOWING 240 ML FOR THIS SHIFT. Q2H TURN SCHEDULE CONTINUED, PATIENT TURNED TO LEFT SIDE AT THIS TIME. HS MEDICATIONS GIVEN. PATIENT WITHOUT FURTHER NEEDS, WILL CONTINUE TO MONITOR. CALL LIGHT WITHIN REACH AND BED ALARM ON.
[2017-09-09 22:41] VITALS: BP 99/63
[2017-09-10 06:19] LABS: HEMATOCRIT 36.2 % (42.0-52.0); HEMOGLOBIN 11.1 g/dL (13.5-18.0); MEAN CELL VOLUME 100 fl (78-100); MEAN CORPUSCULAR HEMOGLOBIN 31 pg (27-31); MEAN CORPUSCULAR HGB CONC 31 g/dL (33-37); MEAN PLATELET VOLUME 9.6 fl (7.4-10.4); PLATELET COUNT 327 K/mm3 (130-400); RED BLOOD COUNT 3.63 M/mm3 (4.20-5.60); RED CELL DISTRIBUTION WIDTH 17.6 % (11.5-14.5); WHITE BLOOD COUNT 10.1 K/mm3 (4.8-10.8)
[2017-09-10 06:33] LABS: BUN/CREATININE RATIO 36.1 (6.0-26.0); CALCIUM 8.3 mg/dL (8.4-10.2); LYMPHOCYTE 13 % (20-51); NEUTROPHILS 69 % (42-75)
[2017-09-10 06:34] LABS: MONOCYTE 17 % (3-10)
[2017-09-10 06:38] VITALS: BP 98/64
--- NOTE | 2017-09-10 07:10 | NUR ---
BEDSIDE REPORT GIVEN TO JOSEPHINE RAMOS. PATIENT SLEEPING, CALL LIGHT WITHIN REACH AND BED ALARM ON.
--- NOTE | 2017-09-10 07:13 | NUR ---
BEDSIDE REPORT RECEIVED FROM LEON BURTON
--- NOTE | 2017-09-10 08:00 | NUR ---
PATIENT UP IN CHAIR AT BEDSIDE FOR BREAKFAST, DENIES CURRENT DISCOMFORT, PICHARDO PATENT AT CHAIRSIDE,
[2017-09-10 10:38] VITALS: BP 102/59
--- NOTE | 2017-09-10 12:26 | NUR ---
DR. SHOEMAKER VISITS WITH PATIENT
--- NOTE | 2017-09-10 12:42 | NUR ---
CURRENTLY UP IN HCAIR AT BEDSIDE, DAUGHTER VISITS,
[2017-09-10 14:00] VITALS: BP 99/69
[2017-09-10 18:11] VITALS: BP 95/51
--- NOTE | 2017-09-10 19:25 | NUR ---
Bedside report to Celeste Dan RN
[2017-09-10 21:10] VITALS: BP 99/49
[2017-09-11 06:21] VITALS: BP 107/61
--- NOTE | 2017-09-11 07:22 | NUR ---
BEDSIDE REPORT RECEIVED FROM Imelda BEARDEN RN
--- NOTE | 2017-09-11 08:00 | NUR ---
PATIENT SITTING UP IN RECLINER. SHIFT ASSESSMENT COMPLETE. PATIENT ALERT AND ORIENTED X4. DENIES ANY PAIN OR DISCOMFORTS AT THIS TIME. ON OXYGEN VIA NASAL CANNULA AT 1L. PATIENT QUIET THIS MORNING. PATIENT'S CALL LIGHT WITHIN REACH. CHAIR ALARM ON.
--- NOTE | 2017-09-11 08:45 | NUR ---
THIS NURSE IN PATIENT'S ROOM TO GIVE MORNING MEDICATIONS. PATIENT ASLEEP IN CHAIR WITH BREAKFAST TRAY IN FRONT OF HIM. TOOK MORNING MEDICATIONS WITHOUT DIFFICULTY.
--- NOTE | 2017-09-11 10:30 | NUR ---
PATIENT LYING IN BED. WITH HEAD OF BED UP. PATIENT'S RESPIRATIONS LABORED. WORK OF BREATHING INCREASED. WHEN THIS NURSE ASKS PATIENT IF HE IS HAVING DIFFICULTY BREATHING. STATES "I FEEL FINE". CALL LIGHT WITHIN REACH BED ALARM ON.
[2017-09-11 10:52] VITALS: BP 105/64
[2017-09-11 14:22] VITALS: BP 104/57
--- NOTE | 2017-09-11 14:30 | NUR ---
PROJECTION CAMERA OPERATOR REPORTS THAT PATIENT APPEARS TO BE "HUFFING AND PUFFING MORE" SP02 93% ON 1L. SPOKE WITH DR.WOLFE CLAUDIA'S NURSE AND NOTIFIED THAT PATIENT APPEARS TO BE HAVING MORE DIFFICULTY BREATHING. SP02 HAS BEEN WITHIN NORMAL LIMITS. CLAUDIA IS GOING TO RELAY MESSAGE TO .
--- NOTE | 2017-09-11 15:30 | NUR ---
PATIENT LYING IN BED WITH EYES CLOSED. HAS BEEN QUIET TODAY AND SEEMS TO BE SLEEPING A LOT TODAY. NOTED THAT PATIENT'S LEFT ARM WAS WET. UPON ASSESSMENT PATIENT NOTED TO HAVE PIN POINT OPEN AREA TO LEFT FOREARM. EXTRASORB FOAM APPLIED TO AREA AND WRAPPED WITH GAUZE WRAP. WHILE PATIENT IS LYING IN BED PATIENT TACHYPENIC. APPEARS TO BE HAVING INCREASED WORK OF BREATHING. PATIENT ASKED HOW HIS BREATHING FEELS. PATIENT STATES "I'M HUFFING AND PUFFING RIGHT NOW" SP02 93% ON 1L. RESPIRATORY RATE 30.
[2017-09-11 18:05] VITALS: BP 108/50
--- NOTE | 2017-09-11 18:16 | NUR ---
CALLED AND NOTIFIED THAT PATIENT HAS BEEN SLEEPING MOST OF THE DAY AND APPEARS TO BE HAVING A MORE DIFFICULT TIME BREATHING TODAY.
--- NOTE | 2017-09-11 19:10 | NUR ---
REPORT GIVEN TO JOSEPHINE SINGER
--- NOTE | 2017-09-11 21:00 | NUR ---
PT IN BED ASLEEP UPON ENTERING ROOM TO ADMINISTER HS MEDS, ABLE TO TAKE MEDS WHOLE IN APPLESAUCE, PT STATES HE IS TIRED BUT FEELS "FINE", MINIMAL SWELLING TO BLE, PT STATES HIS SOB FROM EARLIER IS "IMPROVED," BREATHING STABLE ON 1L O2 VIA NASAL CANULA, DRESSING TO LEFT ARM CDI, PICHARDO DRAINING APPROPRIATELY, PT'S LEGS ELEVATED, DENIES NEEDS, DENIES PAIN, COMPLEX ASSESSMENT COMPLETED AND CHARTED, CALL LIGHT WITHIN REACH AND BED ALARM ON UPON EXITING ROOM
[2017-09-11 22:00] VITALS: BP 115/57
--- NOTE | 2017-09-12 01:00 | NUR ---
Bedside shift report received from Earlene BURTON. Patient resting quietly with eyes closed. Oxygen in place at 1L/NC. Bed alarm on. Call light in reach.
--- NOTE | 2017-09-12 05:52 | NUR ---
Early AM medications taken in applesauce without difficulty. Denies pain. Denies shortness of breath. Oxygen in place at 1L/NC. RR 28-30 Labored with turns and cares. Wt up 1.1 lb from yesterday.
[2017-09-12 06:03] VITALS: BP 101/66
--- NOTE | 2017-09-12 07:03 | NUR ---
Report to Nikia BURTON.
--- NOTE | 2017-09-12 07:10 | NUR ---
REPORT RECEIVED FROM VALORIE SANTIAGO LPN
--- NOTE | 2017-09-12 08:00 | NUR ---
patient's shift assessment complete. patient alert and oriented x4. patient tired this morning. when asked how his breathing is today states "so far so good" patient appears to be having increased work of breathing. left lower lobe diminished but from this nurses assessment more air movement is heard in left lower lobe today than yesterday. all lung kumar diminished throughout.patient's abdomen appears more rounded today. bowel sounds audible in all quadrants. denies any abdominal pain. had bowel movement yesterday. has dressing to left upper ext that is cdi. reports having pain in right knee. rates pain 2-3/10. requested prn tylenol. no redness or warmth noted to right knee. doesn't appear to be swollen.
[2017-09-12 10:37] VITALS: BP 94/60
--- NOTE | 2017-09-12 10:40 | NUR ---
this nurse in patient's room changing telfa dressing to left groin fold. left groin fold more red today. has open area to the crease of groin fold. granulation tissue noted to wound bed. bacitracin ointment applied to area and covered with telfa per order. radha and de leon care provided. dessenex powder applied to groin folds. patient's scrotum elevated. instructed EVENT OPERATIONS MANAGER to make sure that when patient is lying in bed that his scrotum is elevated to help with skin redness. patient very tired. easily arousable but quickly falls back to sleep. falls asleep during conversation. patient's respirations labored. patient tachypenic. respiratory rate 28-30. patient reports that he just feels tired today. vital signs obtained. dressing to left forearm removed. no active drainage noted from left forearm. area left open at this time. patient lying in bed with bilat lower ext elevated. gillian hose in place. on oxygen via nasal cannula at 1L. call light within reach. bed alarm on.
--- NOTE | 2017-09-12 10:46 | NUR ---
dr. lin called and notified of patient's condition. is to come see patient.
--- NOTE | 2017-09-12 12:30 | NUR ---
patient up to recliner for lunch. when talking with patient about how he has been feeling this morning patient states "you know i have been having a hard time breathing today, i don't know what's causing that but i have been having a rough day" patient's color seems a little better than this morning. reports that he does not have an appetite. states "is that the medicine you are giving me to make me eat more? i was eating more for a little bit but here lately nothing sounds good" patient's call light within reach. chair alarm on.
--- NOTE | 2017-09-12 13:51 | NUR ---
patient sitting up in recliner sleeping. this nurse and certified nursing assistant instructor in patient's room to see if patient wants to go on walk. patient shakes head no states "no honey, these legs just ain't workin today" requested to get back into bed. patient assisted into bed. becomes tachypenic with labored respirations after the exertion of getting into bed. patient's head elevated. call light within reach. legs elevated on pillow. bed alarm on.
[2017-09-12 14:42] VITALS: BP 92/60
--- NOTE | 2017-09-12 14:42 | NUR ---
PATIENT'S BLOOD PRESSURE AT 1442 92/60. PER DR. CHU PATIENT TO RECEIVE SCHEDULED 1700 COREG. HOLD PATIENT'S 1700 LASIX FOR TONIGHT'S DOSE.
--- NOTE | 2017-09-12 16:30 | NUR ---
PATIENT PROVIDED PRN TYLENOL FOR PAIN RATED 4/10 IN RIGHT CALF. AREA WAS DIFFICULT TO VISUALIZE DUE TO POOR LIGHTING BUT FROM WHAT THIS NURSE COULD SEE PATIENT'S RIGHT LAYTON APPEARS SLIGHTLY RED AND THAT THERE IS A BRUISING THROUGHOUT RIGHT CALF. THERE IS AN AREA TO RIGHT CALF THAT IS APPROXIMATELY RENY SIZED THAT'S A BRIGHTER RED THAT IS NON BLANCHABLE. PAINFUL UPON PALPATION. NOTIFIED.
--- NOTE | 2017-09-12 17:51 | NUR ---
IN TO SEE PATIENT AT THIS TIME.
[2017-09-12 18:05] VITALS: BP 90/62
--- NOTE | 2017-09-12 18:20 | NUR ---
PATIENT'S PORT ACCESSED AT THIS TIME. 3/4 INCH NEEDLE UTILIZED. PORT ACCESSED WITHOUT DIFFICULTY. STERILE TECHNIQUE USED. BLOOD RETURN OBTAINED AND FLUSHES WITHOUT DIFFICULTY. PATIENT'S IV FLUIDS STARTED AT 250 MLS/HR FOR 250MLS. WILL RECHECK BLOOD PRESSURE AFTER 250 MLS IS COMPLETE.
--- NOTE | 2017-09-12 19:01 | NUR ---
BEDSIDE REPORT GIVEN TO JOSEPHINE CHO
--- NOTE | 2017-09-12 21:00 | NUR ---
PT COMPLETES 250ML INFUSION. BP 88/56 REPORTED TO PROVIDER. ORDERS NEXT 250ML TO BE GIVEN. BP AFTER SECOND INFUSION 98/60. PROVIDER ORDERS THE REST OF THE 1000ML BAG (500 ML) TO BE GIVEN AT 125 ML/H. BAG INFUSING WITHOUT DIFFICULTY. PT DENIES ANY PAIN OR NEEDS AT THIS TIME. IS RESTING IN BED, CALL LIGHT IN REACH.
--- NOTE | 2017-09-12 21:15 | NUR ---
Bedside shift report received from Lili BURTON. Patient rests in bed with bed alarm on. Oxygen in place per NC at 1L. IV fluids infusing NS at 125 ML/HR. Site patent. Denies pain. Bed alarm on. Call light in reach.
[2017-09-12 22:00] VITALS: BP 96/59
--- NOTE | 2017-09-12 22:00 | NUR ---
This nurse and WELFARE INVESTIGATOR in to do cares and turn. Cath cares administered. Old telfa removed from skin tear to L groin. Area cleansed and dried. Bacitracin and new telfa applied to area. Signs of healing noted with granulation tissue. Desenex powder applied to other areas of reddened groin and scrotom. Assessment completed. Patient denies pain. Does show signs of shortness of breath with cares but denies having difficulty breathing. RR is 24. Lungs diminished all kumar and absent in LLL. HR regular. Continues to have edema to upper and lower ext. Ayala cath patent to DD. SCD's and applied. Patient is positioned for comfort. VS obtained. B/P 96/59 P78 R24 SAO2 24 SAO2 92% on 1L/NC T 97.6. has 2hrs and 40 min left on fluids. Dr. Bone notifed of current vital signs and for directions on when fluids are complete. Order to contact if B/P is lower than current reading.
[2017-09-13] VITALS (7 sets, daily range): BP systolic 99–139; BP diastolic 65–81
--- NOTE | 2017-09-13 00:58 | NUR ---
IV fluids completed. B/P 104/70 P 79 RR 28 SAO2 94% on 1L/NC. T 97.5. Denies pain or needs at this time.
--- NOTE | 2017-09-13 06:12 | NUR ---
AM medication taken whole in applesauce. Denies pain. Weight up 0.4 lbs. B/P 105/68 P 84 RR 24 SAO2 95% on 1L/NC. Denies wants or needs.
--- NOTE | 2017-09-13 07:04 | NUR ---
Report to Nikia BURTON.
--- NOTE | 2017-09-13 07:14 | NUR ---
BEDSIDE REPORT RECEIVED FROM VALORIE SANTIAGO LPN
--- NOTE | 2017-09-13 08:00 | NUR ---
PATIENT'S SHIFT ASSESSMENT COMPLETE. PATIENT ALERT AND ORIENTED X4. DENIES ANY PAIN OR DISCOMFORTS AT THIS TIME. DOES NOT APPEAR TO BE TIRED THIS MORNING. RESPIRATIONS LABORED. CONTINUES TO HAVE INCREASED WORK OF BREATHING. ON OXYGEN VIA NASAL CANNULA 1L. DENIES ANY NEEDS FROM THE NURSE AT HTIS TIME. CALL LIGHT WITHIN REACH.
[2017-09-13 10:41] LABS: BUN/CREATININE RATIO 42.2 (6.0-26.0); CALCIUM 8.1 mg/dL (8.4-10.2); POTASSIUM 4.1 mmol/L (3.6-5.0)
--- NOTE | 2017-09-13 20:00 | NUR ---
Bedside shift report received from Nikia BURTON. Patient resting supine in bed with oxygen in place at 1L/NC. Bed alarm on. Call light in reach. Denies pain. Denies shortness of breath at rest. Has shortness of breath with exertion or with care from staff as in rolling around in bed to change brief and turn. Lungs CTA upper lobes. Diminished in bases. Bilateral arms with edema R greater than L. No weeping noted. Bilateral Legs with edema, again R greater than L but improved from yesterday. No weeping and Pedal Pulses improved on dorsalis pedis. Ayala cath to DD with clear yellow urine in bag. Catheter care provided at this time. L groin skin tear area cleanse and new telfa with bacitracin applied.Desetin powder applied to rest of groin. Buttocks reddened with some flakey skin remaining but mostly gone and much improved. Barrier Cream to buttocks. Remains on a two hour turn schedule and 2000 ML fluid restriction. Scheduled HS medications taken whole in applesauce without difficulty. Denies wants or needs at this time.
[2017-09-14 06:05] VITALS: BP 101/62
--- NOTE | 2017-09-14 06:29 | NUR ---
Scheduled AM medications taken whole in applesauce. Denies pain. Rested well. Repositioned by staff. Weight up 0.4 lbs.
--- NOTE | 2017-09-14 07:05 | NUR ---
Report to Nikia BURTON
--- NOTE | 2017-09-14 07:10 | NUR ---
BEDSIDE REPORT RECEIVED FROM VALORIE SANTIAGO LPN
[2017-09-14 07:15] LABS: CALCIUM 8.1 mg/dL (8.4-10.2); POTASSIUM 4.2 mmol/L (3.6-5.0)
--- NOTE | 2017-09-14 07:20 | NUR ---
BEDSIDE REPORT RECEIVED FROM VALORIE SANTIAGO LPN
[2017-09-14 07:36] LABS: BUN/CREATININE RATIO 41.9 (6.0-26.0)
--- NOTE | 2017-09-14 08:00 | NUR ---
patient up in recliner for lunch. shift assessment complete. patient alert and oriented x4. denies any pain or discomforts at this time. denies shortness of breath or difficulties breathing, although visibly tachypenic with conversation and has visible increased work of breathing. on oxygen via nasal cannula. patient's stomach remains rounded/distended no change from this nurses assessment yesterday. edema to bilat lower ext improved. patient noted to have fine crackles auscultated to left lower lobe after patient took some deep breaths and coughed lungs diminished in all kumar. when asked how patient's night was patient states "pretty dog garn good i suppose" when asked how he is feeling this morning states "I think pretty good" patient's call light within reach. chair alarm on.
[2017-09-14 10:00] VITALS: BP 95/63
--- NOTE | 2017-09-14 13:00 | NUR ---
SPOKE WITH ABOUT PATIENT'S ABDOMINAL ULTRASOUND RESULTS. PLAN IS FOR PATIENT TO RECEIVE PARACENTESIS ON THURSDAY AT [facility] IN PATIENT'S ROOM. WILL BE DONE AROUND [id number] THURSDAY. PATIENT TO HAVE LABS DONE ON FLUID INCLUDING TOTAL RBC,WBC'S, AMALYSE, LYPASE, AND PROTEIN. PARACENTESIS TO BE THERAPEUTIC WELL FOR CELLS, TAKE OFF MUCH FLUID POSSIBLE. DR. SHOEMAKER IS GOING TO CONSULT PATIENT'S ONCOLOGIST. DR. SHOEMAKER AWARE OF PATIENT'S CHEST XRAY REPORT AND PATIENT'S BLOOD PRESSURE. CONTACTED SENDY FROM RADIOLOGY. PROCEDURE SCHEDULED.
[2017-09-14 14:12] VITALS: BP 108/63
[2017-09-14 18:29] VITALS: BP 97/66
--- NOTE | 2017-09-14 20:00 | NUR ---
BEDSIDE REPORT GIVEN TO JOSEPHINE QUINTERO
--- NOTE | 2017-09-14 20:40 | NUR ---
PATIENT RESTING IN BED. SHIFT ASSESSMENT COMPLETED AT THIS TIME. PATIENT A/O X4, DENIES PAIN. LUNGS CTA, DENIES COUGH, SHORTNESS OF BREATH NOTED AT REST. O2 FLOWING VIA NASAL CANNULA WITH HUMIDIFIER @ 1 L/MIN. PICHARDO CATHETER TO DEPENDENT DRAINAGE DRAINING PALE YELLOW, CLEAR URINE. RIGHT ARM WITH NON-PITTING EDEMA, SKIN TEAR TO ELBOW, WEEPING. LEFT ARM WITH NON-PITTING EDEMA. +2 PITTING EDEMA NOTED TO RIGHT LEG. +1 PITTING EDEMA NOTED TO LEFT LEG. SKIN TEAR TO LEFT GROIN WITH SIGNS OF HEALING, TELFA AND BACITRACIN USED TO COVER. GROIN REDDENED, DESENEX POWDER APPLIED. PICHARDO CATHETER CARE PROVIDED. ABRASION NOTED TO SCROTUM, INDU. BOTTOM REDDENED AND PEELING, BARRIER CREAM APPLIED. 2000 ML FLUID RESTRICTION CONTINUED. TURN Q2H SCHEDULE CONTINUED. PORT TO RIGHT CHEST ACCESSED. HS MEDICATIONS GIVEN. PATIENT WITHOUT FURTHER NEEDS, WILL CONTINUE TO MONITOR. CALL LIGHT WITHIN REACH AND BED ALARM ON.
[2017-09-14 22:00] VITALS: BP 104/70
[2017-09-15 06:01] VITALS: BP 103/62
--- NOTE | 2017-09-15 07:19 | NUR ---
BEDSIDE SHIFT REPORT GIVEN TO JOSEPHINE LOPEZ. PATIENT SLEEPING, CALL LIGHT WITHIN REACH AND BED ALARM ON.
--- NOTE | 2017-09-15 08:30 | NUR ---
Pt up to recliner. Dr. Sol has been at bedside to explain plan of care. Pt denies pain. Noted to have continued non-pitting edema to RFA and 1+ pitting edema to BLE. Ayala intact with clear yellow urine to dependant drainage. 1L O2 via NC. Port to R upper chest accessed, saline locked. Pt eats only bites of breakfast stating "it just has no taste."
[2017-09-15 10:42] VITALS: BP 97/67
[2017-09-15 14:10] VITALS: BP 111/61
[2017-09-15 18:00] VITALS: BP 108/52
--- NOTE | 2017-09-15 19:00 | NUR ---
BEDSIDE SHIFT REPORT RECIEVED FROM JOSEPHINE LOPEZ. PATIENT RESTING IN BED WATCHING TV, CALL LIGHT WITHIN REACH AND BED ALARM ON.
--- NOTE | 2017-09-15 20:45 | NUR ---
PATIENT RESTING IN BED. SHIFT ASSESSMENT COMPLETED AT THIS TIME. PATIENT A/O X4, DENIES PAIN. LUNGS CTA, DENIES COUGH, SHORTNESS OF BREATH PRESENT AT REST. O2 FLOWING VIA NASAL CANNULA @ 1 L/MIN. RIGHT PORT WITH CONTINUED ACCESS, CAP CHANGED AT THIS TIME, FLUSHES WITH BLOOD RETURN. +2 PITTING EDEMA NOTED TO BLE, LOTION APPLIED TO DRY EXTREMETIES, PILLOW USED FOR ELEVATION AND SCD'S APPLIED. BUE WITH NON-PITTING EDEMA. RUE WITH SMALL AMOUNT OF WEEPING FROM SKIN TEAR BY ELBOW. PICHARDO TO DEPENDENT DRAINAGE, DRAINING PALE YELLOW, CLEAR URINE. GROIN SLIGHTLY REDDENED, DESENEX POWDER APPLIED. SKIN TEAR TO LEFT GROIN DRESSED WITH TELFA AND BACITRACIN. ABRASION TO SCROTUM LOOKS TO BE FROM PICHARDO CATHETER TUBING BEING COMPRESSED, BRIEF REMOVED AT THIS TIME AND FOR THE NIGHT TO HELP ALLEVIATE THE COMPRESSION. BOTTOM REDDENED AND PEELING, BARRIER CREAM APPLIED. TURN Q2H SCHEDULE CONTINUED. PATIENT REMAINS ON 2000 ML FLUID RESTRICTION, 450 MLS LEFT FOR THIS SHIFT. HS MEDICATIONS GIVEN. PATIENT WITHOUT FUTHER NEEDS, WILL CONTINUE TO MONITOR. CALL LIGHT WITHIN REACH AND BED ALARM ON.
[2017-09-15 22:17] VITALS: BP 98/57
[2017-09-16 06:18] VITALS: BP 116/69
--- NOTE | 2017-09-16 09:30 | NUR ---
Pt has returned to bed after breakfast. Is noted to be pale, reports being tired and not feeling well this AM. Skin tear to R elbow, clean and dry. No drainage noted at this time. Bilat upper extremeties appear more edematous than previous day, non-pitting. BLE with pitting edema, RLE 2+, LLE 1+. Skin tear to L groin fold healed, new pink tissue intact. Noted to have new split in skin toward posterior end of R groin fold. Performed pericare, applied powder to all folds, did not place bacitracin/dressing to L skin tear. Pt refused PT this AM, stating that he is too tired and his back hurts.
[2017-09-16 09:41] VITALS: BP 118/66
--- NOTE | 2017-09-16 13:50 | NUR ---
Pt and daughter present when swingbed meeting participants in room discussing POC and answering any questions. Dr. Sol discusses possibility of pt going to [facility] instead of ELECTROCARDIOGRAPHIC TECHNICIAN in near future as pt needing 24 hour care, as well as possibly the need to look at Hospice, pending the results of the paracentesis to be done on 09/17/17. Daughter did express that she did not feel staff were walking pt enough and that she was still hoping to get her dad to ELECTROCARDIOGRAPHIC TECHNICIAN. Discussed with the daughter that pt has refused to walk at times and that he has a right to refuse if his body tells him that he can't today or at that time. Daughter asked questions about CHF and what that meant as we discussed the difficult fluid balance doctor has needed to manage w/ the pt. Discussed that [facility] could provide Skilled care for a while if that was best for pt and transition to hospice if that was necessary, pending the findings on the paracentesis specimens. Dr. Sol did mention to pt and family that cancer could be found and he would then recommend as an option keeping Lawrence comfortable at the senior care. Dr. Sol did repeat his dicussion directly with the patient again and pt appeared to understand. Daughter also asked why the de leon hadn't been taken out. Discussed that pt had periarea breakdown and that it was showing signs of healing finally, more accurate I & O obtained with catheter and that pt needed to have energy for therapy versus getting up frequently to urinate w/ diuretics and frequency with age. Nurses report that pt also desired catheter at this time. Daughter and pt verbalize understanding at this time. Per daughter's request [facility] be contacted and SW verified that they will have male beds available next week for pt's possible d/c if that was the plan decided based on paracentesis results. Pt and daughter deny any further questions at this time. Daughter does comment that "hospice is what dr has been talking about from the beginning of the stay".
[2017-09-16 14:00] VITALS: BP 108/62
[2017-09-16 18:00] VITALS: BP 103/63
--- NOTE | 2017-09-16 18:00 | NUR ---
Pt does not eat any of his dinner tray stating "nothing tastes good." Reports that he does not feel well and requests to get back into bed. Pt is assisted into bed and given Ensure, instructed to try to drink in place of dinner.
--- NOTE | 2017-09-16 19:15 | NUR ---
BEDSIDE REPORT FROM JOHN BURTON
--- NOTE | 2017-09-16 20:05 | NUR ---
WOKE FOR ASSESSMENT, TALKATIVE, IN GOOD SPIRITS, DENIES DISCOMFORT AT THIS TIME, REPOSITIONED, PICHARDO PATENT.
[2017-09-16 22:40] VITALS: BP 106/58
--- NOTE | 2017-09-16 23:02 | NUR ---
REPORT TO MERI BURTON
[2017-09-17 05:59] VITALS: BP 105/69
[2017-09-17 07:09] LABS: HEMOGLOBIN 10.7 g/dL (13.5-18.0); MEAN CELL VOLUME 97 fl (78-100); MEAN CORPUSCULAR HEMOGLOBIN 30 pg (27-31); MEAN CORPUSCULAR HGB CONC 31 g/dL (33-37); MEAN PLATELET VOLUME 9.1 fl (7.4-10.4); PLATELET COUNT 422 K/mm3 (130-400); RED BLOOD COUNT 3.62 M/mm3 (4.20-5.60); RED CELL DISTRIBUTION WIDTH 16.9 % (11.5-14.5); WHITE BLOOD COUNT 9.5 K/mm3 (4.8-10.8)
[2017-09-17 07:29] LABS: ALBUMIN 2.3 g/dL (3.5-5.0); BUN/CREATININE RATIO 48.1 (6.0-26.0); POTASSIUM 3.3 mmol/L (3.6-5.0); TOTAL BILIRUBIN 0.6 mg/dL (0.2-1.3); TOTAL PROTEIN 4.9 g/dL (6.3-8.2)
[2017-09-17 07:58] LABS: LYMPHOCYTE 20 % (20-51); MONOCYTE 10 % (3-10); NEUTROPHILS 69 % (42-75)
[2017-09-17 09:58] VITALS: BP 107/74
--- NOTE | 2017-09-17 14:00 | NUR ---
Dr. Pacheco at pt bedside with this RN and Samantha Jimenez, RAD. Inserts catheter using US to LUQ abdomen. Removes ~2500ml opaque yellow fluid from periteneum using high/constant suction. Pt tolerates procedure well. VS remain stable throughout procedure. Pt denies pain. BS audible x 4 quadrants. Lungs CTA.
[2017-09-17 14:44] VITALS: BP 106/70
--- NOTE | 2017-09-17 17:39 | NUR ---
Spoke w/ daughter today and mentioned that pt records would be sent to [facility] for review tomorrow and mentioned that we were just preparing for this possibility of d/c next week but that no final decisions had been made. Daughter in agreement.
[2017-09-17 18:30] VITALS: BP 97/56
[2017-09-18 06:24] VITALS: BP 112/70
--- NOTE | 2017-09-18 06:50 | NUR ---
BEDSIDE SHIFT REPORT RECIEVED FROM JOSEPHINE WEBER. PATIENT RESTING IN BED, CALL LIGHT WITHIN REACH AND BED ALARM ON.
--- NOTE | 2017-09-18 07:28 | NUR ---
PATIENT SITTING UP IN CHAIR READY FOR BREAKFAST. SHIFT ASSESSMENT COMPLETED AT THIS TIME. PATIENT A/O X4, DENIES PAIN. LUNGS CTA, DENIES COUGH, SHORTNESS OF BREATH EVIDENT UPON EXERTION, PATIENT REPORTS FEELING EASIER TO BREATH AFTER THE PROCEDURE YESTERDAY. O2 FLOWING VIA NASAL CANNULA @ 1 L/MIN. PATIENT PALE IN COLOR. BUE WITH NON-PITTING EDEMA. SKIN TEAR TO RIGHT ELBOW REDRESSED WITH MEPILEX, WEEPING SLIGHTLY. +2 PITTING EDEMA NOTED TO BLE, LOTION APPLIED, ELEVATED WITH PILLOW TO HELP WITH EDEMA. ABDOMEN NON-DISTENDED, SOFT. GROIN REDDENED, DESENEX POWDER APPLIED. LEFT GROIN SKIN TEAR HEALED, NO DRESSING NEEDED. BOTTOM REDDENED, BARRIER CREAM APPLIED. LEFT ABDOMEN INCISION INDU. PICHARDO CATHETER TO DEPENDENT DRAINAGE, DRAINING CLEAR, PALE YELLOW URINE. PATIENT REMAINS ON 2000 ML FLUID RESTRICTION. Q2H TURN SCHEDULE CONTINUED. MORNING MEDICATIONS GIVEN WITH APPLESAUCE. PATIENT WITHOUT FURTHER NEEDS, WILL CONTINUE TO MONITOR. CALL LIGHT WITHIN REACH AND CHAIR ALARM ON.
--- NOTE | 2017-09-18 10:00 | NUR ---
Release of info to [facility] signed by pt. Records sent to [facility] to [facility] for review w/ anticipated discharge in the future.
[2017-09-18 10:26] VITALS: BP 93/59
--- NOTE | 2017-09-18 10:43 | NUR ---
Spoke w/ swapna to update her let her know that [facility] at [facility] ([place], [place]) would be happy to speak w/ her about any questions she might have - finances etc. Daughter, Eri, said she would contact [facility].
[2017-09-18 14:10] VITALS: BP 105/73
--- NOTE | 2017-09-18 15:50 | NUR ---
DR. SHOEMAKER AT BEDSIDE TO DISCUSS PLAN OF CARE AND ASSESS PATIENT.
--- NOTE | 2017-09-18 16:45 | NUR ---
MANAGER NC TO NOTIFY THIS NURSE AND PATIENT OF CARE ASSESSMENT MEETING MONDAY 09/18 @ 6457. WILL NOTIFY DAUGHTER WHEN SHE ARRIVES.
--- NOTE | 2017-09-18 17:30 | NUR ---
PATIENT'S DAUGHTER AT BEDSIDE. DAUGHTER INFORMED OF CARE ASSESSMENT MEETING ON MONDAY 09/18 @ 3425. DAUGHTER TO INQUIRE ABOUT WHEN THE PICHARDO CATHETER WOULD BE DC'D? THIS NURSE TO CALL DR. SHOEMAKER AND ASK ABOUT CATHETER REMOVAL, WITH A DECISION TO ATTEMPT REMOVAL SOME TIME NEXT WEEK. DAUGHTER INFORMED.
--- NOTE | 2017-09-18 18:11 | NUR ---
Spoke w/ pt and daughter about care assessment to be done on Thursday at 4:15pm. Daughter would like to be present.
[2017-09-18 18:26] VITALS: BP 104/57
--- NOTE | 2017-09-18 19:05 | NUR ---
Bedside shift report received from Abiola BURTON. Patient rests in bed with daughter at bedside watching TV. A/O. Oxygen in place at 1L/NC. Denies pain or needs.
--- NOTE | 2017-09-18 19:30 | NUR ---
Call placed to Dr. Sol. Left message on voicemail regarding Potassium level of 3.3. Potassium currently on hold.
--- NOTE | 2017-09-18 20:00 | NUR ---
Assessment completed. Rests comfortably in bed with HOB elevated. Oxygen in place at 1L/NC. Denies shortness of breath at rest. RR non labored. Lungs CTA upper lobes. Diminished in bases. Mepilex dressing to R elbow, saturated. Removed. Area cleansed with NS, dried and new mepilex dressing applied. L groin skin tear healed. Tx Dc'd. Cath care given. Groin reddened but improved. Nystatin powder applied. Buttocks reddened. Remains on a 2 hour turn schedule. Ayala Cath patent to DD with clear yellow urine in bag. LLE with 2+ edema and RLE 3+ edema. Scheduled eye gtts given. Remains on 2000 ML fluid restriction. Uses I.S. and pulls 500 ML and flutter valve x10 reps. Bed alarm on. Call light in reach.
--- NOTE | 2017-09-18 20:45 | NUR ---
Dr. Sol returns call, order for Potassium 30 MEQ PO now, and 30 MEQ daily. BMP on 09/21.
--- NOTE | 2017-09-19 04:16 | NUR ---
Rests with eyes closed. No signs of pain or distress. Oxygen in place at 1L/NC. Respirations even and non-labored. Repositioned by staff every 2 hours. Ayala patent to DD with clear yellow urine in bag. Bed alarm on. Call light in reach.
[2017-09-19 06:26] VITALS: BP 112/75
--- NOTE | 2017-09-19 07:42 | NUR ---
Report to Jael BURTON.
[2017-09-19 10:45] VITALS: BP 102/59
[2017-09-19 15:19] VITALS: BP 96/64
[2017-09-19 16:38] VITALS: BP 106/68
--- NOTE | 2017-09-19 18:05 | NUR ---
Patient alert and oriented. Sitting up in the chair. States back pain has improved since taking tylenol. Requests to get in bed. Multiple attempts made throughout the day to get patient to ambulate in hallway, patient refused. Made a plan with patient to ambulate in hallway after supper. Patient was agreeable at time of discussion, but is no longer agreeable at this time. ACCOUNTING COORDINATOR assisted patient to bed per his request. Fall precautions in place.
[2017-09-19 18:07] VITALS: BP 90/58
--- NOTE | 2017-09-19 19:15 | NUR ---
Bedside shift report received from Jael BURTON. Patient resting supine in bed. A/O x3. Oxygen in place at 1L/NC. Denies pain. Assessment completed. Ayala in place to DD. Respiratations more labored than yesterday. Denies shortness of breath when asked.
[2017-09-20 06:15] VITALS: BP 106/69
--- NOTE | 2017-09-20 07:22 | NUR ---
Report to Jael BURTON.
[2017-09-20 10:18] VITALS: BP 95/56
[2017-09-20 14:10] VITALS: BP 104/70
--- NOTE | 2017-09-20 17:00 | NUR ---
Patient alert and oriented. Resting in bed. Denies pain. Refused supper. States "I'm just not hungry." Willing to drink ensure. Ensure shake provided. Oxygen at 1 liter via nasal cannula. Urinary catheter to dependent drainage. Ayala is free flowing without kinks or twists. Securement device intact to right thigh. Mepilex dressing to skin tear on right elbow is clean, dry, and intact. Patient denies needs or questions at this time. Fall precautions in place.
[2017-09-20 18:00] VITALS: BP 112/74
--- NOTE | 2017-09-20 19:30 | NUR ---
Bed side report received from Jael Novoa RN. Pt resting in bed, bed alarm set. Pt awake and a/o x 3. Denies having any needs or concerns. Denies having any having any pain. Oxygen at 1L/NC. Ayala catheter to dependant drainage.
--- NOTE | 2017-09-20 20:00 | NUR ---
Shikha care and HS care given. Barrier cream applied to coccyx . Skin slightly pink. Skin intact. Ayala care given. Pt had ensure for evening snack. Drank 90%.
--- NOTE | 2017-09-20 21:56 | NUR ---
Resting in bed, bed alarm set. Awake and a/o x 3. C/o's of left knee pain. Rates pain 3 out 10. Given tylenol two PO in apple sauce. No difficulty noted with swallowing.
[2017-09-20 22:13] VITALS: BP 114/69
--- NOTE | 2017-09-21 02:01 | NUR ---
0130 resting in bed, bed alarm set. Oxygen on at 1L/NC. Aayla catheter to dependant drainage. Opened eyes when spoken too. Pt repositioned and denied pain.
[2017-09-21 06:13] VITALS: BP 120/76
--- NOTE | 2017-09-21 06:21 | NUR ---
Q hourly checks done. Bed alarm set. Has been resting in bed with eyes closed and even respirations. Oxygen continues at 1L/NC. Ayala catheter to dependant drainage. 0619 Opens eyes when spoken too. Given AM medication in apple sauce. No difficulty noted swallowing with apple sauce or water. Pt denies having any needs or concerns. Denies pain.
--- NOTE | 2017-09-21 07:00 | NUR ---
Bed side report given to Jael Novao RN. Resting in bed, eyes closed even respirations.
[2017-09-21 07:59] LABS: BUN/CREATININE RATIO 53.6 (6.0-26.0); POTASSIUM 3.7 mmol/L (3.6-5.0)
[2017-09-21 10:16] VITALS: BP 11/72; BP 111/72
[2017-09-21 15:20] VITALS: BP 108/71
--- NOTE | 2017-09-21 16:20 | NUR ---
Ayala catheter clamped for bladder training per orders. Education provided to patient and daughter. All questions answered, both verbalize understanding and deny questions. Care assessment being completed at this time. Daughter at bedside.
[2017-09-21 18:19] VITALS: BP 103/69
--- NOTE | 2017-09-21 19:00 | NUR ---
Bed side shift report received from Jael Novoa RN. Pt resting in bed, eyes closed with even respirations. Oxygen at 1L/NC. Ayala catheter clamped for bladder training. Bed alarm set.
--- NOTE | 2017-09-21 20:40 | NUR ---
2030 Pt informed me he felt the need to "pee." Ayala catheter unclamped and alow to drain. Shikha care and catheter care given. Skin in abd apon fold intact and slightly pink. Skin in right and left groin intack and slightly pink. Pt denied having any pain with catheter care.
--- NOTE | 2017-09-21 20:45 | NUR ---
De Leon catheter clamped. 100mls of yellow color urine emptied from de leon bag. Sa02 93% on 1L/NC. Heart rate 94, respirations 24 and even. Pt denies having any SOB, or chest pain.
[2017-09-21 22:30] VITALS: BP 101/54
[2017-09-22 05:59] VITALS: BP 98/50
--- NOTE | 2017-09-22 07:15 | NUR ---
Bed side report given to Sofia Paez RN
[2017-09-22 10:11] VITALS: BP 106/70
--- NOTE | 2017-09-22 10:40 | NUR ---
PT COMPLETES WALK WITH PHYSICAL THERAPY. PT TO GO FOR CT OF ABD. PORT ACCESSED FOR RADIOLAGY. PT TO CT VIA W/C. RETURNS WITHOUT DIFFICULTY AND IS NOW RESTING IN BED.
--- NOTE | 2017-09-22 10:51 | NUR ---
PT FOUND RESTING IN BED AFTER EATING BREAKFAST. TAKES MEDS IN APPLESAUCE WITHOUT DIFFICULTY. DISCUSSED WISHES WITH PT. PT UNDERSTANDS AND IS FINE WITH GOING TO THE [place]. IS AWARE HE IS NOT ABLE TO CARE FOR HIMSELF IN THE WAY REQUIRED FOR ASSISTED LIVING. PT IS TIRED OF TAKING SO MANY PILLS AND STATES HE "THOUGHT THE DOCTOR WAS GOING TO GET RID OF SOME OF THOSE THINGS." GENERALIZED EDEMA IN BUE. +2 EDEMA IN BLE. DENIES ANY PAIN AT THIS TIME. WILL CONTINUE TO MONITOR. CALL LIGHT IN REACH.
--- NOTE | 2017-09-22 13:11 | NUR ---
PORT DEACCESSED AFTER CT. PT RESTING IN BED AT THIS TIME.
[2017-09-22 14:04] VITALS: BP 91/52
--- NOTE | 2017-09-22 17:45 | NUR ---
PT TAKES SCHEDULED MEDS WITHOUT DIFFICULTY WOULD LIKE TO GO BACK TO BED. THIS NURSE ENCOURAGES HIM TO SIT UP FOR A BIT LONGER. DAUGHTER ENCOURAGES PT TO EAT MORE DINNER. STATES SHE IS AN OPTIMIST AND ASSISTED LIVING COME TO EVAL HIM TOMORROW. SHE DOES NOT BELIEVE THE PT HAS PLATUED. NO OTHER NEEDS NOTED AT THIS TIME. NO CHANGES IN PREVIOUS ASSESSMENT NOTED. DRESSING CHANGED ON RIGHT ELBOW SKIN TEAR. HEAVY CLEAR DRAINAGED FILLED THE MEPILEX DRESSING. NEW DRESSING IN PLACE.
[2017-09-22 18:41] VITALS: BP 103/59
--- NOTE | 2017-09-23 01:30 | NUR ---
NURSE AND AUTOTRANSFUSIONIST ENTER ROOM TO FIND PATIENT WITH A FAIRLY LARGE POOL OF BLOOD ON THE FRONT OF HIS WHITE UNDERSHIRT AND GOWN, CLOTHING REMOVED AND BLEEDING COMING FROM SMALL PUNCTURE ON RIGHT UPPER CHEST WALL WHERE COUCH NEEDLE HAD BEEN REMOVED. BANDAID IN PLACE SATURATED WITH BLOOD, QUARTER SIZED CLOT NOTED UNDER BANDAID, PATIENT CLEANED UP AND PRESSURE HELD TO SITE FOR 5 MINUTES, BLEEDING SLOWED BUT NOT STOPPED, GUAZE 4X4 FOLDED AND SECURED TO SITE TIGHTLY WITH HYPAFIX TAPE, WILL CONTINUE TO MONITOR CLOSELY FOR FURTHER BLEEDING
[2017-09-23 05:45] VITALS: BP 102/61
--- NOTE | 2017-09-23 06:48 | NUR ---
Patient resting quietly in bed, no further bleeding noted from port site, dressing intact to site, patient denies any needs/complaints, bed alarm on, call light in reach,
--- NOTE | 2017-09-23 08:00 | NUR ---
Pt calls stating he feels need to urinate. Unclamp catheter tubing, 175ml clear yellow urine flows freely by dependant drainage, into catheter bag. Pt denies pain. Asks if the dressing is still in place to R elbow. Inform that mepilex is intact and dry. R arm noted to be edematous from elbow to hand with redness noted surrounding elbow area. Pt continues on 1L O2 via NC with plans to attempt to titrate down. Upper abdomen firm. RLE with 1+ pitting edema. No drainage noted from any tissue.
[2017-09-23 11:13] VITALS: BP 107/71
--- NOTE | 2017-09-23 13:00 | NUR ---
Turned off O2, pt sats 92-93% RA at rest. Recheck of O2 sats after moving from recliner to bed, pt desats to 83% RA, quickly rebounds to 87-88% RA once positioning is complete but needs 1L O2 for several minutes after activity to return to >92% then able to return to RA.
--- NOTE | 2017-09-23 13:30 | NUR ---
Francisca Ferrari, at pt bedside to assess pt per daughter Ary's request. Vonda informs pt and daughter that pt is not appropriate for Francisca Espino at this time r/t increased assistance with ADL's. Pt and daughter agreeable to pt transfer to [facility] to continue therapies and work toward move to independant living.
[2017-09-23 14:19] VITALS: BP 91/62
[2017-09-23 18:21] VITALS: BP 105/70
--- NOTE | 2017-09-23 19:00 | NUR ---
Bedside shift report received from Ana Maria BURTON. Patient rests supine in bed with bed alarm on. Call light in reach. Ayala Cath clamped at current time. Denies pain or needs.
--- NOTE | 2017-09-23 20:20 | NUR ---
Calls for Tylenol. Pain in neck 10/01. Tylenol taken whole in applesauce without difficulty. Assessment completed. Patient had called COMMERCIAL REAL ESTATE ASSISTANT at 1950 and felt urge to urinate, catheter unclamped at that time and reclamped at 1999. Has clear yellow urine in de leon bag. Currently on RA. Denies feeling short of breath. RR tachypneic. Right upper arm remains swollen, dressing to R elbow CDI. RLE with trace pitting edema. Cath care provided. Groin and rectal area pink. Repositioned to side. Bed alarm on. Call light in reach.
[2017-09-23 22:40] VITALS: BP 95/62
--- NOTE | 2017-09-24 01:15 | NUR ---
Oxygen level spot checked while patient sound asleep, 93% on RA. No signs of distress.
--- NOTE | 2017-09-24 04:56 | NUR ---
Repositoned. Denies pain. R elbow dressing changed. One corner saturated, not draining as bad as previous. Area cleansed and dried. New mepilex applied.
[2017-09-24 06:01] VITALS: BP 108/74
--- NOTE | 2017-09-24 07:10 | NUR ---
BEDSIDE REPORT RECEIVED FROM VALORIE SANTIAGO LPN
--- NOTE | 2017-09-24 07:14 | NUR ---
Report to Nikia BURTON.
--- NOTE | 2017-09-24 07:40 | NUR ---
PATIENT UP IN RECLINER FOR BREAKFAST. SHIFT ASSESSMENT COMPLETE. PATIENT ALERT AND ORIENTED X4. DENIES ANY PAIN OR DISCOMFORTS AT THIS TIME. DENIES SHORTNESS OF BREATH OR DIFFICULTIES BREATHING AT THIS TIME. WHEN ASKED IF HE IS SHORT OF BREATH WITH EXERTION STATES "WELL I DON'T KNOW I HAVEN'T DONE ENOUGH TO TELL YOU" PATIENT'S VOICE SOUNDS CONGESTED THIS MORNING. PATIENT REPORTS FEELING THE URGE TO VOID. PATIENT'S PICHARDO CATHETER UNCLAMPED AT THIS TIME. IMMEDIATE FLOW OF CLEAR YELLOW URINE ONCE UNCLAMPED. PATIENT'S ABDOMEN DISTENDED. BOWEL SOUNDS AUDBILE IN ALL QUADRANTS. CALL LIGHT WITHIN REACH. CHAIR ALARM ON.
--- NOTE | 2017-09-24 08:39 | NUR ---
MESSAGE LEFT WITH DR. SHOEMAKER REGARDING PATIENT'S WEIGHT GAIN FROM 181.7 YESTERDAY TO 184 TODAY.
[2017-09-24 10:15] VITALS: BP 131/85
[2017-09-24 14:00] VITALS: BP 114/60
--- NOTE | 2017-09-24 14:30 | NUR ---
PATIENT CALLED AND REPORTED THAT HE FELT THOUGH HE NEEDED TO VOID. PATIENT'S PICHARDO CATHETER UNCLAMPED. IMMEDIATE FLOW OF CLEAR YELLOW URINE INTO PICHARDO BAG.
--- NOTE | 2017-09-24 16:30 | NUR ---
PATIENT REPORTED FEELING THE URGE TO VOID. PICHARDO UNCLAMPED. IMMEDIATE FLOW OF CLEAR YELLOW URINE. LEFT UNCLAMPED FOR 20 MIN. RECLAMPED AT THIS TIME.
[2017-09-24 18:00] VITALS: BP 112/60
--- NOTE | 2017-09-24 19:12 | NUR ---
BEDSIDE REPORT GIVEN TO VALORIE SANTIAGO LPN
--- NOTE | 2017-09-24 19:40 | NUR ---
Report received from Nikia BURTON. Patient rests in bed with bed alarm on. Call light in reach. A/O. On RA. Has pain 3-4/10 to L shoulder, requests Tylenol. Denies shortness of breath at rest or exertion. RR appears labored and is tachpneic and increases with cares of rolling in bed and repositioning. Lungs diminished. Dressing in R arm CDI. R arm edematous, no drainage noted. Pericares provided, groin pink and skin intact, buttocks pink, skin intact. Ayala Cath clamped. Bladder training continues. Clear urine in bag. Repositioned by staff. Bed alarm on. Call light in reach.
--- NOTE | 2017-09-25 04:22 | NUR ---
Has been resting quietly between turns with no further requests for tylenol. Has been calling with urge to void before time to unclamp catheter. Remains on room air. Bed alarm on. Call light in reach.
[2017-09-25 06:11] VITALS: BP 101/56
[2017-09-25 06:44] LABS: HEMATOCRIT 35.6 % (42.0-52.0); MEAN CELL VOLUME 93 fl (78-100); MEAN CORPUSCULAR HEMOGLOBIN 29 pg (27-31); MEAN CORPUSCULAR HGB CONC 31 g/dL (33-37); MEAN PLATELET VOLUME 9.2 fl (7.4-10.4); PLATELET COUNT 425 K/mm3 (130-400); RED BLOOD COUNT 3.81 M/mm3 (4.20-5.60); RED CELL DISTRIBUTION WIDTH 16.7 % (11.5-14.5); WHITE BLOOD COUNT 11.3 K/mm3 (4.8-10.8)
[2017-09-25 06:52] LABS: BUN/CREATININE RATIO 48.5 (6.0-26.0); POTASSIUM 3.9 mmol/L (3.6-5.0)
[2017-09-25 06:53] LABS: CALCIUM 8.1 mg/dL (8.4-10.2)
--- NOTE | 2017-09-25 07:00 | NUR ---
Bedside shift report to Nikia BURTON.
--- NOTE | 2017-09-25 08:22 | NUR ---
in to see patient at this time.
[2017-09-25 08:33] LABS: LYMPHOCYTE 23 % (20-51); MONOCYTE 8 % (3-10); NEUTROPHILS 68 % (42-75)
[2017-09-25 10:06] VITALS: BP 110/71
[2017-09-25 14:41] VITALS: BP 104/59
[2017-09-25 19:25] VITALS: BP 109/58
--- NOTE | 2017-09-25 20:50 | NUR ---
Report received from Nikia BURTON. Patient just getting back in bed from going to BR. Assisted by UPS DRIVER. Has been getting up to urinate about every hour. Has not been incontinent according to staff. Patient reports pain across his shoulders 08/01. Requests and given Tylenol. Assessment completed. Shikha cares provided. Desenex powder applied to groin. Repositoned for comfort. Bed alarm on. Call light in reach.
[2017-09-25 22:00] VITALS: BP 119/53
--- NOTE | 2017-09-26 03:53 | NUR ---
Has been calling to get up to BR about every 2 hours now. No episodes of incontinence. Voiding 100 ML each time. States he has been sleeping in between episodes of voiding. Denies pain. Bed alarm on. Call light in reach.
[2017-09-26 06:10] VITALS: BP 95/45
--- NOTE | 2017-09-26 06:43 | NUR ---
Remained continent all shift. Called Q 2 hrs to get up and void. Short of breath with exertion. Denies being tired or wore out. States "it is necessary".
--- NOTE | 2017-09-26 07:24 | NUR ---
Report to Abiola BURTON.
--- NOTE | 2017-09-26 07:36 | NUR ---
PATIENT LAYING SUPINE IN BED. SHIFT ASSESSMENT COMPLETED AT THIS TIME. PATIENT A/0 X4, DENIES PAIN. PATIENT ASSISTED TO BATHROOM TO VOID AND THEN INTO CHAIR FOR BREAKFAST. LUNGS CTA, DENIES COUGH, SHORTNESS OF BREATH EVIDENT WITH EXERTION. RIGHT ARM EDEMATOUS, NON-PITTING. MEPILEX TO RIGHT ELBOW SKIN TEAR CDI. ABDOMEN DISTENDED AND FIRM. GROIN REDDENED, DESENEX POWDER APPILED. BUTTOCK REDDENED, BARRIER CREAM APPLIED. RLE WITH +2 PITTING EDEMA AND LLE WITH +1 PITTING EDEMA, TEDS APPLIED. 2000 ML FLUID RESTRICTION CONTINUED. Q2H TURN SCHEDULE CONTINUED. MORNING MEDICATIONS GIVEN WITH APPLESAUCE. PATIENT WITHOUT FURTHER NEEDS, WILL CONTINUE TO MONITOR. CALL LIGHT WITHIN REACH AND CHAIR ALARM ON.
[2017-09-26 09:54] VITALS: BP 145/73
--- NOTE | 2017-09-26 11:22 | NUR ---
Pt assisted to BR w/ walker and voids. Reports ready for walk. Pt ambulates w/ walker to Nurse's station - (reports doesn't need oxygen for walk), rests and then walks to chapel and then back to hallway of room, rest and then to room to bed. Pt appears a little SOB after walking but is able to hold short conversation. Pt tolerated pretty well - in good spirits.
--- NOTE | 2017-09-26 11:28 | NUR ---
Pt still sounds a little tight audibly - sp02 check at this time 96% on RA - HR 104. Denies any discomforts. Resting in bed w/ call light in reach and bed alarms on.
[2017-09-26 14:25] VITALS: BP 107/48
[2017-09-26 18:00] VITALS: BP 97/64
--- NOTE | 2017-09-26 21:30 | NUR ---
Bedside shift report received from Abiola BURTON. Patient resting in bed x4. Has pain in neck 3/10. Requests to have 1 Tylenol tonight with HS medications. Has been calling to get up and void. Assisted to BR by staff with 1 assist and walker. No episods of incontinence this shift. Pericares by staff. Groin remains pink, with no open areas. Desenex powder applied. Minimal edema to BLE. Dressing to R elbow removed. Scant dried yellow drainage noted to old dressing. No open area's noted. No active drainage noted. Has a small abraised area that is tender healed. Will leave dressing off and this time and continue to monitor for need to reapply if arms become more edematous. Patient coninues to have exertional dyspnea but will deny to staff when asked if having dyspnea. Continues of RA with SAO2 in mid 90's. SCD's on at this time. Scheduled eye gtts and PRN Tylenol 325 MG given. Remains ofn 2000 ML FR. Using I.S. and flutter valve with staff reminders. Plan to go to [facility] Thursday. Bed alarm on. Call light in reach.
--- NOTE | 2017-09-27 02:09 | NUR ---
Has been calling for assist to BR every hour to hour and a half. Voids around 100 MLs each void. DIETARY AIDE performed a post bladder void bladder scan 540 ML in bladder.
--- NOTE | 2017-09-27 04:46 | NUR ---
Patient continue to get up to void every hour to hour and a half. Exhibiting signs of fatigue but will not admit to it. Voiding 100 ML each time. PASTEURIZING MACHINE OPERATOR did another post void bladder scan 640 ML of urine left in bladder.
[2017-09-27 06:02] VITALS: BP 107/49
--- NOTE | 2017-09-27 06:30 | NUR ---
This nurse down and spoke with patient around 0600. RETAIL SALES MERCHANDISER reported he had questions on why he had to get up so much to go to the bathroom. Patient is tired and fatiqued. Explained to patient about bladder scans and that he is having 500-600 ML left in his bladder after getting up and going to the bathroom and that he has been doing this since the catheter has been removed on Thursday and that he can't keep it up. Also explained that if the urine sat in there it can cause infections and he would not want that. I asked if he was opposed to having the catheter put back in and he said no. Dr. Sol was notified of the above information and order was received to reinsert the de leon Catheter.
--- NOTE | 2017-09-27 06:45 | NUR ---
16 FR. Ayala Cath with 10 CC balloon inserted via sterile technique x1 attempt with some level of difficulty due to extreme swelling of scrotal sac. Clear yellow urine return. Urine sample collected and sent to lab per protocol. Shikha-care provided and positioned for comfort. L[employer] OF [employer] notes a skin tear on LFA where old dark bruised area is. Note 1 CM < shaped skin tear. Minimal bleeding noted. Area cleansed, edges well approximated with steri-strips.
--- NOTE | 2017-09-27 07:00 | NUR ---
Report to Sofia BURTON.
--- NOTE | 2017-09-27 07:15 | NUR ---
REPORT FROM VALORIE STACY
--- NOTE | 2017-09-27 07:45 | NUR ---
[facility], STATING ITS A GOOD MORNING, PICHARDO IS PATENT, DRAINING CLEAR YELLOW URINE, PATIENT IS WITHOUT COMPLAINT OR REQUEST.
[2017-09-27 08:00] LABS: URINE APPEARANCE CLEAR; URINE BILIRUBIN NEGATIVE (NEGATIVE); URINE BLOOD TRACE (NEGATIVE); URINE COLOR YELLOW; URINE GLUCOSE NEGATIVE (NEGATIVE); URINE KETONE NEGATIVE (NEGATIVE); URINE LEUKOCYTE ESTERASE NEGATIVE (NEGATIVE); URINE NITRATE NEGATIVE (NEGATIVE); URINE PROTEIN(semi-quant) TRACE mg/dL (NEGATIVE); URINE UROBILINOGEN NORMAL (NORMAL)
[2017-09-27 10:54] VITALS: BP 93/51
[2017-09-27 14:50] VITALS: BP 104/62
[2017-09-27 18:20] VITALS: BP 91/55
--- NOTE | 2017-09-27 18:39 | NUR ---
report to shital jones
--- NOTE | 2017-09-27 21:00 | NUR ---
Received report from JOSEPHINE Vincent
[2017-09-27 22:12] VITALS: BP 112/50
--- NOTE | 2017-09-28 01:14 | NUR ---
Pt resting comfortably in bed. Denies any pain at this time. I heard him coughing from down the phillips earlier. He states he has been coughing the last couple days. Denies any increase in shortness of breath. Some crackles noted in left lower lobe.
[2017-09-28 06:10] VITALS: BP 118/76
--- NOTE | 2017-09-28 06:15 | NUR ---
Awakened for meds. Appears very tired this morning. Winded after taking pills. Using accessory muscles. O2sats 92% on RA. Denies discomfort at this time.
--- NOTE | 2017-09-28 07:15 | NUR ---
bedside report received from tanya dill rn
--- NOTE | 2017-09-28 08:15 | NUR ---
patient sitting up in recliner. shift assessment complete. patient alert and oriented x4. denies any pain or discomforts at this time. denies shortness of breath or difficulties breathing. patient on room air. fine crackles auscultated in left lower lobe. patient's lungs diminished throughout. patient has cough per patient's report cough is occasionally productive of yellow/green colored sputum. patient's abdomen distended. appears to be larger today than when this nurse cared for patient Thursday. plan is for patient to be transfering to [facility] today. patient's call light within reach. chair alarm on.
[2017-09-28 10:01] VITALS: BP 107/71
--- NOTE | 2017-09-28 10:20 | NUR ---
CALLED AND NOTIFIED OF PATIENT'S COUGH AND THAT PATIENT'S DAUGHTER IS CONCERNED ABOUT IT. ALSO CONFIRMED THAT PATIENT IS TO BE LEAVING TOMORROW TO GO TO [facility]. LAB WORK ORDERED.
[2017-09-28 11:20] LABS: HEMOGLOBIN 11.4 g/dL (13.5-18.0); MEAN CELL VOLUME 93 fl (78-100); MEAN CORPUSCULAR HEMOGLOBIN 29 pg (27-31); MEAN CORPUSCULAR HGB CONC 31 g/dL (33-37); MEAN PLATELET VOLUME 8.7 fl (7.4-10.4); PLATELET COUNT 458 K/mm3 (130-400); RED BLOOD COUNT 3.98 M/mm3 (4.20-5.60); RED CELL DISTRIBUTION WIDTH 16.9 % (11.5-14.5); WHITE BLOOD COUNT 15.1 K/mm3 (4.8-10.8)
[2017-09-28 11:37] LABS: ALBUMIN 2.7 g/dL (3.5-5.0); BUN/CREATININE RATIO 39.4 (6.0-26.0); CALCIUM 8.1 mg/dL (8.4-10.2); POTASSIUM 3.6 mmol/L (3.6-5.0); TOTAL BILIRUBIN 0.7 mg/dL (0.2-1.3); TOTAL PROTEIN 5.8 g/dL (6.3-8.2)
[2017-09-28 11:56] LABS: LYMPHOCYTE 12 % (20-51); MONOCYTE 10 % (3-10); NEUTROPHILS 71 % (42-75)
[2017-09-28 14:23] VITALS: BP 99/65
--- NOTE | 2017-09-28 16:30 | NUR ---
PATIENT LYING IN BED WITH EYES CLOSED. PATIENT REFUSED WORKING WITH PHYSICAL THERAPY THIS AFTERNOON. PATIENT'S CHEEKS FLUSHED. PATIENT'S TEMPORAL TEMPERATURE 99.0.
--- NOTE | 2017-09-28 16:40 | NUR ---
DR. SHOEMAKER IN TO SEE PATIENT AT THIS TIME. PLAN IS FOR PATIENT'S DISCHARGE TO BE DELAYED.
[2017-09-28 18:10] VITALS: BP 105/68
--- NOTE | 2017-09-28 19:22 | NUR ---
BEDSIDE REPORT GIVEN TO JOSEPHINE QUINTERO
--- NOTE | 2017-09-28 20:48 | NUR ---
PATIENT RESTING IN BED. SHIFT ASSESSMENT COMPLETED AT THIS TIME. PATIENT A/O X4, DENIES PAIN. LUNGS WITH EXPIRATORY WHEEZES THROUGHOUT THAT ARE ALSO AUDIBLE WITHOUT A STETHESCOPE. PATIENT REPORTS PRODUCTIVE COUGH WITH THICK, YELLOW SPUTUM. SHORTNESS OF BREATH EVIDENT WHILE AT REST AND PATIENT IS TACHYPNEIC. PICHARDO CATHETER TO DEPENDENT DRAINAGE, DRAINING CLEAR, PALE YELLOW URINE, CATHETER CARE COMPLETED. PATIENT IS FLUSHED IN CHEEKS. NON-PITTING EDEMA NOTED TO ENTIRE BODY WITH +2 PITTING EDEMA NOTED TO BLE, ELEVATED WITH A PILLOW WITH SCD'S ON. AIR MATTRESS ON BED TO DIRECTOR TELECOMMUNICATIONS IN SKIN BREAKDOWN AND FOR COMFORT. BUTTOCK REDDENED, BARRIER CREAM APPLIED. GROIN TIGHT AND PINK, DESENEX POWDER APPLIED. LEFT GROIN WITH CRACK, TELFA AND BACITRACIN APPLIED. SIN TEAR TO LEFT FOREARM WITH STERI STRIPS IN PLACE, NO WEEPING NOTED AT THIS TIME. ABDOMEN DISTENDED AND FIRM. PATIENT REMAINS ON A 2000 ML FLUID RESTRICTION. TURN Q2H SCHEDULE CONTINUED. HS MEDICATIONS GIVEN WITH APPLESAUCE, BREATHING TX HAD NO EFFECT ON EXPIRATORY WHEEZES. PATIENT WITHOUT FURTHER NEEDS AT THIS TIME, WILL CONTINUE TO MONITOR. CALL LIGHT WITHIN REACH AND BED ALARM ON.
[2017-09-28 21:21] VITALS: BP 107/68
--- NOTE | 2017-09-29 04:00 | NUR ---
PATIENT'S VITALS OBTAIN FOR MORNING VITAL SIGN CHECK AND O2 SAT READ 89-90%. STAFF TRIED TO REPOSITION PATIENT WITHOUT ANY CHANGE IN VITAL SIGN. 1L O2 ADMINISTERED AT THIS TIME. PATIENT'S O2 SAT INCREASED TO 92%.
[2017-09-29 05:43] VITALS: BP 108/69
--- NOTE | 2017-09-29 08:50 | NUR ---
PATIENT SITTING UP IN CHAIR. SHIFT ASSESSMENT COMPLETED AT THIS TIME. PATIENT A/O X4, DENIES PAIN. LUNGS CTA, DENIES COUGH THIS MORNING, SHORTNESS OF BREATH EVIDENT WITH EXERTION. PICHARDO TO DEPENDENT DRAINAGE, DRAINING CLEAR, PALE YELLOW URINE. LEFT GROIN WITH CRACK, TELFA AND BACITRACIN CDI. BUTTOCKS REDDENED, BARRIER CREAM APPLIED. BLE WITH +2 PITTING EDEMA. NON-PITTING EDEMA NOTED TO REST OF BODY. SKIN TEAR TO LEFT FOREARM WITH STERI STRIPS CDI. ABDOMEN DISTENDED. PATIENT REMAINS ON A 2000 ML FLUID RESTRICTION. TURN Q2H SCHEDULE CONTINUED. MORNING MEDICATIONS GIVEN WITH APPLESAUCE. PATIENT WITHOUT FURTHER NEEDS, WILL CONTINUE TO MONITOR. CALL LIGHT WITHIN REACH AND CHAIR ALARM ON.
[2017-09-29 10:48] VITALS: BP 118/69
--- NOTE | 2017-09-29 11:00 | NUR ---
REPORT FROM LEON BURTON
--- NOTE | 2017-09-29 14:00 | NUR ---
O2 sats 92% on RA x15 minutes. Left O2 off. Pt tolerating well.
[2017-09-29 15:20] VITALS: BP 131/53
--- NOTE | 2017-09-29 17:43 | NUR ---
[facility]
--- NOTE | 2017-09-29 18:00 | NUR ---
Report received from Yakelin Segura RN. Patient rests in bed. A/O x4. Denies wants or needs at this time.
[2017-09-29 18:15] VITALS: BP 109/56
[2017-09-29 22:47] VITALS: BP 123/73
--- NOTE | 2017-09-30 01:49 | NUR ---
Spot checked patient while sleeping without oxygen on. SAO2 92% on RA.
[2017-09-30 06:08] VITALS: BP 116/51
--- NOTE | 2017-09-30 07:24 | NUR ---
Report to Ana Maria BURTON.
[2017-09-30 10:00] VITALS: BP 113/64
[2017-09-30 13:46] VITALS: BP 104/55
[2017-09-30 18:22] VITALS: BP 111/56
--- NOTE | 2017-09-30 20:30 | NUR ---
Patient rests in bed with bed alarm on. Call light in reach. On RA. Breathing non-labored. Denies shortness of breath. Face not as red as last night. No coughing noticed. Denies pain. No audible wheezing heard. Lungs diminished all kumar. R arm remains edematous. Dressing CDI. Has small area where patient picked a scab. Bandaid applied. Ayala Cath in place draining clear yellow urine. +1 edema to BLE. Takes scheduled HS medications whole in applesauce. No choking or problems noted. Bed alarm on. Call light in reach.
[2017-09-30 22:11] VITALS: BP 128/57
[2017-10-01 05:32] VITALS: BP 103/54
--- NOTE | 2017-10-01 05:36 | NUR ---
Repositioned Q 2 hours. Rests without pain or distress. Remained on RA all shift. Limited coughing noted. SAO2 92-93% all shift.
[2017-10-01 06:18] LABS: HEMATOCRIT 35.4 % (42.0-52.0); HEMOGLOBIN 10.7 g/dL (13.5-18.0); MEAN CELL VOLUME 92 fl (78-100); MEAN CORPUSCULAR HEMOGLOBIN 28 pg (27-31); MEAN CORPUSCULAR HGB CONC 30 g/dL (33-37); MEAN PLATELET VOLUME 8.6 fl (7.4-10.4); PLATELET COUNT 406 K/mm3 (130-400); RED BLOOD COUNT 3.83 M/mm3 (4.20-5.60); RED CELL DISTRIBUTION WIDTH 16.7 % (11.5-14.5); WHITE BLOOD COUNT 9.7 K/mm3 (4.8-10.8)
[2017-10-01 06:32] LABS: BUN/CREATININE RATIO 43.1 (6.0-26.0); CALCIUM 8.1 mg/dL (8.4-10.2); POTASSIUM 3.6 mmol/L (3.6-5.0)
[2017-10-01 06:47] LABS: NEUTROPHILS 70 % (42-75)
[2017-10-01 06:48] LABS: LYMPHOCYTE 15 % (20-51); MONOCYTE 15 % (3-10); POLYCHROMASIA 1+
--- NOTE | 2017-10-01 07:19 | NUR ---
Report to Christina BURTON
--- NOTE | 2017-10-01 08:00 | NUR ---
Pt up to BR w/ PARI MUTUAL TICKET CHECKER. Has moderate loose stool and returns to recliner - using walker and CGA w/ steady gait. Pt noted some SOB w/ activity. Pt's only complaint is back pain from the chair (various chairs have been tried during this pt's stay). Pleasant. Denies other needs at this time.
[2017-10-01 09:39] VITALS: BP 120/63
--- NOTE | 2017-10-01 10:00 | NUR ---
Dr. Sol here to see pt.
--- NOTE | 2017-10-01 10:44 | NUR ---
Pt notified of new med - prednisone. Pt reports that he will be staying another day with hospital prior to going to [facility] tomorrow. Audible wheezing heard at this time. Pt given ice water per request. Continued I & O. Pt reports back pain 2-3 - tylenol to be given. Denies further needs. In bed w/ call light in reach and bed alarms on. Desenex pwd to groins - much improved. Ayala cath care completed.
[2017-10-01 14:02] VITALS: BP 111/44
[2017-10-01 17:53] VITALS: BP 103/58
--- NOTE | 2017-10-01 18:00 | NUR ---
Oxygen used just w/ ambulation today. PT reported that pt had low sat this am prior to walk and used 1 L/NC w/ ambulation. See PT note.
--- NOTE | 2017-10-01 19:00 | NUR ---
Bedside shift report received from Christina BURTON. Patient resting supine in bed with bed alarm on. Call light in reach. Alert. Denies pain or needs at this time.
--- NOTE | 2017-10-01 21:30 | NUR ---
Assesment completed. HS medications taken whole in applesauce. Tylenol 325 Mg PO given per HS routine. Denies pain at current time. Lungs with faint exp wheeze in RUL. Diminished in bilateral lower lobes. States rarely coughing and no production. Dressing to R elbow removed. No open areas or drainage noted. Bilateral arm swelling diminished. Ayala patent to DD with clear yellow urine in bag. Ninimal to no swelling in RLE, none in LLE. Cath cares provided. Bacitracin and telfa to L groin crack. Scrotom pink. Desenex powder applied. Repositioned to right side. Bed alarm on. Call light in reach.
--- NOTE | 2017-10-02 00:12 | NUR ---
Scheduled nebulizer tx given via pipe. Denies pain. Lungs diminished. No audible wheezes noted. No cough. Repositoned in bed. Denies wants or needs. HR slightly tachy at 102.
[2017-10-02 05:26] VITALS: BP 101/46
--- NOTE | 2017-10-02 07:13 | NUR ---
Report to Ana Maria BURTON.
[2017-10-02 08:22] LABS: EOS % 0.2 % (0.0-4.0); HEMATOCRIT 38.5 % (42.0-52.0); HEMOGLOBIN 11.7 g/dL (13.5-18.0); LYMPH# 2.2 (1.50-4.00); MEAN CELL VOLUME 92 fl (78-100); MEAN CORPUSCULAR HEMOGLOBIN 28 pg (27-31); MEAN CORPUSCULAR HGB CONC 30 g/dL (33-37); MEAN PLATELET VOLUME 8.5 fl (7.4-10.4); PLATELET COUNT 469 K/mm3 (130-400); RED BLOOD COUNT 4.18 M/mm3 (4.20-5.60); RED CELL DISTRIBUTION WIDTH 16.6 % (11.5-14.5); WHITE BLOOD COUNT 13.6 K/mm3 (4.8-10.8)
[2017-10-02 08:44] LABS: BUN/CREATININE RATIO 41.3 (6.0-26.0); CALCIUM 8.2 mg/dL (8.4-10.2); POTASSIUM 3.6 mmol/L (3.6-5.0)
[2017-10-02 08:49] LABS: MONO # 1.6 (0.20-0.80); NEU # 9.7 (1.40-6.50)
--- NOTE | 2017-10-02 09:36 | NUR ---
Pt up to recliner. Inquires about leaving today. Inform that Dr. Sol will be down to assess. Pt denies cough x 24 hours. Swallows all PO meds with applesauce without difficulty. Lungs CTA, no wheezes, L lung diminished. R arm edema, no drainage. R hand with new skin tear, pt hit hand when sitting in recliner, open to air. Abdomen distended, hypoactive bowel sounds. Ayala catheter intact with clear yellow urine to dependant drainage.
[2017-10-02 10:00] VITALS: BP 130/51
[2017-10-02] MEDS ORDERED: CIPRO500 M1 PO (10:58)
[2017-10-02] MEDS ORDERED: CARVEDILOL3.125 MG PO ×2 (10:59→11:10)
[2017-10-02] MEDS ORDERED: KLOR-CON M1010 MEQ PO (11:01)
[2017-10-02] MEDS ORDERED: FUROSEMIDE40 MG PO (11:01)
[2017-10-02] MEDS ORDERED: BUDESONIDE1 MG/2 ML IH (11:02)
[2017-10-02] MEDS ORDERED: [UNRECOGNIZED DRUG - OTHER] PO (11:03)
[2017-10-02] MEDS ORDERED: ONDANSETRON HYDR4 MG PO (11:04)
[2017-10-02] MEDS ORDERED: PREDNISONE20 M1 PO (11:05)
[2017-10-02 11:48] VITALS: BP 130/51
[2017-10-02] MEDS ORDERED: XOPENEX 3 ML3 M3 IH (12:25)
--- NOTE | 2017-10-02 13:10 | NUR ---
Report given to REGIS Baer. Pt escorted to [facility] via WC. All belongings transferred by daughter. Pt taken to room 301, care tranferred.
== END 2017-10-02 13:10 | DRG 947 ==
LOC: MED/SURG 14:53
PROVIDERS: Family Medicine; Physician Assistant; ADMIT Family Medicine
PROC: 0W9G3ZX Drainage of Peritoneal Cavity, Percutaneous Approach, Diagnostic (ICD-10-PCS; principal; 2017-09-17)
DX: R53.81 Other malaise (principal); J18.9 Pneumonia, unspecified organism; I50.33 Acute on chronic diastolic (congestive) heart failure; I13.0 Hypertensive heart and chronic kidney disease with heart failure and stage 1 through stage 4 chronic kidney disease, or unspecified chronic kidney disease; Z66 Do not resuscitate; J44.0 Chronic obstructive pulmonary disease with (acute) lower respiratory infection; B37.49 Other urogenital candidiasis; E27.40 Unspecified adrenocortical insufficiency; N17.9 Acute kidney failure, unspecified; C91.10 Chronic lymphocytic leukemia of B-cell type not having achieved remission; R18.0 Malignant ascites; N18.3 Chronic kidney disease, stage 3 (moderate); B35.6 Tinea cruris; J44.9 Chronic obstructive pulmonary disease, unspecified; E87.6 Hypokalemia; J20.9 Acute bronchitis, unspecified; N40.1 Benign prostatic hyperplasia with lower urinary tract symptoms
CPT/HCPCS: A6206; A6531; J0696; J1644; J1650; J1940; J2930; J7030; J7512; Q9967

== ENCOUNTER 2017-10-12 09:56 | Emergency (ER) | payer MEDICARE, OTHER ==
[~2017-10-12] VITALS: Wt 84.5 kg
[~2017-10-12 09:56] MED LIST changes: +BUDESONIDE1 MG/2 ML IH; +CARVEDILOL3.125 MG PO; +CIPRO500 M1 PO; +FUROSEMIDE40 MG PO; +ONDANSETRON HYDR4 MG PO; +PREDNISONE20 M1 PO; +XOPENEX 3 ML3 M3 IH; +[UNRECOGNIZED DRUG - OTHER] PO
[2017-10-12 10:23] LABS: EOS # 0.2 (0.04-0.40); EOS % 1.7 % (0.0-4.0); HEMATOCRIT 37.2 % (42.0-52.0); HEMOGLOBIN 11.6 g/dL (13.5-18.0); LYMPH# 1.7 (1.50-4.00); MEAN CELL VOLUME 87 fl (78-100); MEAN CORPUSCULAR HEMOGLOBIN 27 pg (27-31); MEAN CORPUSCULAR HGB CONC 31 g/dL (33-37); MEAN PLATELET VOLUME 9.1 fl (7.4-10.4); MONO # 1.3 (0.20-0.80); PLATELET COUNT 366 K/mm3 (130-400); RED BLOOD COUNT 4.27 M/mm3 (4.20-5.60); RED CELL DISTRIBUTION WIDTH 17.2 % (11.5-14.5); WHITE BLOOD COUNT 11.3 K/mm3 (4.8-10.8)
[2017-10-12 10:35] LABS: BUN/CREATININE RATIO 18.1 (6.0-26.0); CALCIUM 7.8 mg/dL (8.4-10.2); POTASSIUM 4.2 mmol/L (3.6-5.0)
[2017-10-12] MEDS ORDERED: BACTRIM DS TAB1 EACH PO (11:54)
[2017-10-12] MEDS ORDERED: BISCOLAX10 M1 RC (11:55)
[2017-10-12] MEDS ORDERED: CEPHALEXIN500 M1 PO (11:56)
[2017-10-12] MEDS ORDERED: GOOD NEIGH1200 MG/15 PO (11:59)
[2017-10-12] MEDS ORDERED: MIRALAX17 GM PO (12:00)
[2017-10-12] MEDS ORDERED: POTASSIUM CHLO20 ME3 PO (12:01)
[2017-10-12] MEDS ORDERED: NOVAPLUS L80 MG/0.8 SQ (12:27)
[2017-10-12 12:28] VITALS: BP 111/64
== END 2017-10-12 12:41 | disposition home or self-care (01) ==
LOC: ED 09:56
PROVIDERS: Family Medicine
DX: L03.114 Cellulitis of left upper limb (principal); Z99.81 Dependence on supplemental oxygen; M79.89 Other specified soft tissue disorders
CPT/HCPCS: J1650

== ENCOUNTER → 2017-10-15 | Outpatient (CLI) | payer MEDICARE, OTHER ==
[2017-10-12 12:28] VITALS: BP 111/64
[~2017-10-15] MED LIST changes: +BACTRIM DS TAB1 EACH PO; +BISCOLAX10 M1 RC; +CEPHALEXIN500 M1 PO; +GOOD NEIGH1200 MG/15 PO; +MIRALAX17 GM PO; +NOVAPLUS L80 MG/0.8 SQ; +POTASSIUM CHLO20 ME3 PO
[2017-10-15 06:55] LABS: BUN/CREATININE RATIO 15.4 (6.0-26.0); CALCIUM 7.7 mg/dL (8.4-10.2); POTASSIUM 4.9 mmol/L (3.6-5.0)
== END ==
LOC: LAB 05:30
PROVIDERS: Family Medicine
DX: L03.114 Cellulitis of left upper limb (principal); E87.6 Hypokalemia; R60.1 Generalized edema

== ENCOUNTER → 2017-10-26 | Outpatient (CLI) | payer MEDICARE, OTHER ==
[2017-10-12 12:28] VITALS: BP 111/64
== END ==
LOC: RAD 07:00
DX: R18.8 Other ascites (principal)

== ENCOUNTER → 2017-11-02 | Outpatient (CLI) | payer MEDICARE, OTHER ==
[2017-10-12 12:28] VITALS: BP 111/64
[2017-11-02 07:18] LABS: CALCIUM 7.8 mg/dL (8.4-10.2); POTASSIUM 3.3 mmol/L (3.6-5.0)
== END ==
LOC: LAB 06:35
PROVIDERS: Family Medicine
DX: E87.6 Hypokalemia (principal)

== ENCOUNTER → 2017-11-17 | Outpatient (CLI) | payer MEDICARE, OTHER ==
[2017-11-17 06:39] LABS: ALBUMIN 2.2 g/dL (3.5-5.0); BUN/CREATININE RATIO 17.1 (6.0-26.0); HEMATOCRIT 32.1 % (42.0-52.0); HEMOGLOBIN 9.8 g/dL (13.5-18.0); MEAN PLATELET VOLUME 8.5 fl (7.4-10.4); POTASSIUM 4.9 mmol/L (3.6-5.0); RED BLOOD COUNT 3.78 M/mm3 (4.20-5.60); RED CELL DISTRIBUTION WIDTH 18.6 % (11.5-14.5); TOTAL BILIRUBIN 0.6 mg/dL (0.2-1.3); TOTAL PROTEIN 4.3 g/dL (6.3-8.2); WHITE BLOOD COUNT 8.7 K/mm3 (4.8-10.8)
== END ==
LOC: LAB 05:45
PROVIDERS: Physician Assistant
DX: C91.10 Chronic lymphocytic leukemia of B-cell type not having achieved remission (principal); R60.1 Generalized edema

== ENCOUNTER → 2017-11-23 | Outpatient (CLI) | payer MEDICARE, OTHER ==
[2017-11-23 16:02] LABS: BUN/CREATININE RATIO 19.4 (6.0-26.0); POTASSIUM 5.3 mmol/L (3.6-5.0)
== END ==
LOC: LAB 14:04 → RAD 14:04
PROVIDERS: Family Medicine
DX: J90 Pleural effusion, not elsewhere classified (principal); Z95.828 Presence of other vascular implants and grafts

== ENCOUNTER → 2017-11-24 | Outpatient (CLI) | payer MEDICARE, OTHER ==
[2017-11-24 12:45] LABS: HEMATOCRIT 37.5 % (42.0-52.0); HEMOGLOBIN 11.3 g/dL (13.5-18.0); MEAN CELL VOLUME 85 fl (78-100); MEAN CORPUSCULAR HEMOGLOBIN 26 pg (27-31); MEAN CORPUSCULAR HGB CONC 30 g/dL (33-37); PLATELET COUNT 373 K/mm3 (130-400); RED BLOOD COUNT 4.42 M/mm3 (4.20-5.60); RED CELL DISTRIBUTION WIDTH 18.6 % (11.5-14.5); WHITE BLOOD COUNT 12.1 K/mm3 (4.8-10.8)
[2017-11-24 15:22] LABS: NEUTROPHILS 73 % (42-75)
[2017-11-24 15:23] LABS: LYMPHOCYTE 11 % (20-51); MONOCYTE 16 % (3-10)
== END ==
LOC: LAB 11:20
PROVIDERS: Physician Assistant
DX: C91.90 Lymphoid leukemia, unspecified not having achieved remission (principal); C18.9 Malignant neoplasm of colon, unspecified; R18.8 Other ascites; C85.90 Non-Hodgkin lymphoma, unspecified, unspecified site; I50.9 Heart failure, unspecified

== ENCOUNTER → 2017-12-01 | Outpatient (CLI) | payer MEDICARE, OTHER ==
[2017-12-01 12:47] LABS: HEMATOCRIT 35.3 % (42.0-52.0); MEAN CELL VOLUME 84 fl (78-100); MEAN CORPUSCULAR HEMOGLOBIN 26 pg (27-31); MEAN CORPUSCULAR HGB CONC 31 g/dL (33-37); MEAN PLATELET VOLUME 9.2 fl (7.4-10.4); PLATELET COUNT 316 K/mm3 (130-400); RED BLOOD COUNT 4.18 M/mm3 (4.20-5.60); RED CELL DISTRIBUTION WIDTH 18.9 % (11.5-14.5); WHITE BLOOD COUNT 14.5 K/mm3 (4.8-10.8)
[2017-12-01 12:51] LABS: ALBUMIN 2.6 g/dL (3.5-5.0); BUN/CREATININE RATIO 22.2 (6.0-26.0); CALCIUM 7.8 mg/dL (8.4-10.2); POTASSIUM 4.9 mmol/L (3.6-5.0); TOTAL BILIRUBIN 1.1 mg/dL (0.2-1.3); TOTAL PROTEIN 5.1 g/dL (6.3-8.2)
[2017-12-01 13:34] LABS: NEUTROPHILS 77 % (42-75)
[2017-12-01 13:35] LABS: HYPOCHROMIA 1+; LYMPHOCYTE 16 % (20-51); MICROCYTOSIS 1+; MONOCYTE 7 % (3-10); OVALOCYTES 1+
== END ==
LOC: LAB 12:20
PROVIDERS: Family Medicine
DX: C91.10 Chronic lymphocytic leukemia of B-cell type not having achieved remission (principal); C91.90 Lymphoid leukemia, unspecified not having achieved remission; C18.9 Malignant neoplasm of colon, unspecified; R18.8 Other ascites; C85.90 Non-Hodgkin lymphoma, unspecified, unspecified site; I50.9 Heart failure, unspecified

== ENCOUNTER → 2017-12-02 | Outpatient (CLI) | payer MEDICARE, OTHER | LOC: LAB 14:28 | DX: R18.8 Other ascites (principal) ==

== ENCOUNTER → 2017-12-04 | Outpatient (CLI) | payer MEDICARE, OTHER | LOC: LAB 05:20 | PROVIDERS: Family Medicine | DX: E03.9 Hypothyroidism, unspecified (principal) ==

== ENCOUNTER → 2017-12-08 | Outpatient (CLI) | payer MEDICARE, OTHER ==
[2017-12-08 07:38] LABS: ALBUMIN 2.5 g/dL (3.5-5.0); BUN/CREATININE RATIO 16.9 (6.0-26.0); CALCIUM 7.8 mg/dL (8.4-10.2); POTASSIUM 4.6 mmol/L (3.6-5.0); TOTAL BILIRUBIN 0.6 mg/dL (0.2-1.3)
[2017-12-08 07:53] LABS: HEMATOCRIT 32.4 % (42.0-52.0); HEMOGLOBIN 9.9 g/dL (13.5-18.0); MEAN CELL VOLUME 84 fl (78-100); MEAN CORPUSCULAR HEMOGLOBIN 26 pg (27-31); MEAN CORPUSCULAR HGB CONC 31 g/dL (33-37); MEAN PLATELET VOLUME 8.8 fl (7.4-10.4); PLATELET COUNT 273 K/mm3 (130-400); RED BLOOD COUNT 3.85 M/mm3 (4.20-5.60); RED CELL DISTRIBUTION WIDTH 19.3 % (11.5-14.5); WHITE BLOOD COUNT 9.3 K/mm3 (4.8-10.8)
[2017-12-08 08:35] LABS: HYPOCHROMIA 2+; LYMPHOCYTE 16 % (20-51); MONOCYTE 9 % (3-10); NEUTROPHILS 70 % (42-75)
== END ==
LOC: LAB 06:05
PROVIDERS: Physician Assistant
DX: C91.90 Lymphoid leukemia, unspecified not having achieved remission (principal); C18.9 Malignant neoplasm of colon, unspecified; C85.90 Non-Hodgkin lymphoma, unspecified, unspecified site; I50.9 Heart failure, unspecified; R18.8 Other ascites

== ENCOUNTER → 2017-12-11 | Outpatient (CLI) | payer MEDICARE, OTHER ==
[2017-12-11 19:44] LABS: BUN/CREATININE RATIO 20.4 (6.0-26.0); CALCIUM 8.3 mg/dL (8.4-10.2); POTASSIUM 5.3 mmol/L (3.6-5.0)
== END ==
LOC: LAB 18:05
PROVIDERS: Family Medicine
DX: R60.1 Generalized edema (principal)

== ENCOUNTER → 2017-12-15 | Outpatient (CLI) | payer MEDICARE, OTHER ==
[2017-12-15 06:05] LABS: HEMATOCRIT 29.2 % (42.0-52.0); HEMOGLOBIN 9.2 g/dL (13.5-18.0); MEAN CELL VOLUME 84 fl (78-100); MEAN CORPUSCULAR HEMOGLOBIN 26 pg (27-31); MEAN CORPUSCULAR HGB CONC 32 g/dL (33-37); MEAN PLATELET VOLUME 8.4 fl (7.4-10.4); PLATELET COUNT 311 K/mm3 (130-400); RED BLOOD COUNT 3.49 M/mm3 (4.20-5.60); RED CELL DISTRIBUTION WIDTH 19.3 % (11.5-14.5); WHITE BLOOD COUNT 7.5 K/mm3 (4.8-10.8)
[2017-12-15 06:06] LABS: ALBUMIN 2.4 g/dL (3.5-5.0); BUN/CREATININE RATIO 18.7 (6.0-26.0); CALCIUM 7.9 mg/dL (8.4-10.2); POTASSIUM 4.6 mmol/L (3.6-5.0); TOTAL BILIRUBIN 0.4 mg/dL (0.2-1.3)
[2017-12-15 07:02] LABS: LYMPHOCYTE 17 % (20-51); MONOCYTE 13 % (3-10); NEUTROPHILS 67 % (42-75)
[2017-12-15 07:03] LABS: POLYCHROMASIA 1+
== END ==
LOC: LAB 05:20
PROVIDERS: Family Medicine
DX: C91.10 Chronic lymphocytic leukemia of B-cell type not having achieved remission (principal)

== ENCOUNTER → 2017-12-18 | Outpatient (CLI) | payer MEDICARE, OTHER | LOC: LAB 13:52 | DX: I50.32 Chronic diastolic (congestive) heart failure (principal); D64.9 Anemia, unspecified; R60.9 Edema, unspecified ==

== ENCOUNTER → 2017-12-21 | Outpatient (CLI) | payer MEDICARE, OTHER | LOC: LAB 11:04 | DX: D64.9 Anemia, unspecified (principal) ==

== ENCOUNTER → 2017-12-22 | Outpatient (CLI) | payer MEDICARE, OTHER ==
[2017-12-22 07:25] LABS: ALBUMIN 2.4 g/dL (3.5-5.0); BUN/CREATININE RATIO 16.7 (6.0-26.0); POTASSIUM 4.9 mmol/L (3.6-5.0); TOTAL BILIRUBIN 0.5 mg/dL (0.2-1.3)
[2017-12-22 07:26] LABS: HEMATOCRIT 28.4 % (42.0-52.0); HEMOGLOBIN 8.7 g/dL (13.5-18.0); MEAN CELL VOLUME 84 fl (78-100); MEAN CORPUSCULAR HEMOGLOBIN 26 pg (27-31); MEAN CORPUSCULAR HGB CONC 31 g/dL (33-37); MEAN PLATELET VOLUME 8.2 fl (7.4-10.4); PLATELET COUNT 300 K/mm3 (130-400); RED BLOOD COUNT 3.38 M/mm3 (4.20-5.60); RED CELL DISTRIBUTION WIDTH 18.6 % (11.5-14.5); WHITE BLOOD COUNT 7.2 K/mm3 (4.8-10.8)
[2017-12-22 07:34] LABS: LYMPHOCYTE 17 % (20-51); NEUTROPHILS 63 % (42-75)
[2017-12-22 07:35] LABS: MONOCYTE 18 % (3-10)
== END ==
LOC: LAB 06:45
PROVIDERS: Internal Medicine
DX: I50.32 Chronic diastolic (congestive) heart failure (principal); C91.90 Lymphoid leukemia, unspecified not having achieved remission; C18.9 Malignant neoplasm of colon, unspecified; C85.90 Non-Hodgkin lymphoma, unspecified, unspecified site; R18.8 Other ascites

== ENCOUNTER → 2017-12-23 | Outpatient (CLI) | payer MEDICARE, OTHER | LOC: LAB 23:37 | DX: I50.9 Heart failure, unspecified (principal); D64.9 Anemia, unspecified; R60.0 Localized edema ==

== ENCOUNTER → 2017-12-29 | Outpatient (CLI) | payer MEDICARE, OTHER ==
[2017-12-29 06:18] LABS: HEMATOCRIT 27.7 % (42.0-52.0); HEMOGLOBIN 8.7 g/dL (13.5-18.0); MEAN CELL VOLUME 84 fl (78-100); MEAN CORPUSCULAR HEMOGLOBIN 26 pg (27-31); MEAN CORPUSCULAR HGB CONC 31 g/dL (33-37); MEAN PLATELET VOLUME 8.2 fl (7.4-10.4); PLATELET COUNT 309 K/mm3 (130-400); RED CELL DISTRIBUTION WIDTH 17.6 % (11.5-14.5); WHITE BLOOD COUNT 7.8 K/mm3 (4.8-10.8)
[2017-12-29 06:38] LABS: LYMPHOCYTE 17 % (20-51); MONOCYTE 16 % (3-10); NEUTROPHILS 66 % (42-75)
[2017-12-29 06:52] LABS: ALBUMIN 2.4 g/dL (3.5-5.0); BUN/CREATININE RATIO 19.2 (6.0-26.0); CALCIUM 8.1 mg/dL (8.4-10.2); POTASSIUM 4.4 mmol/L (3.6-5.0); TOTAL BILIRUBIN 0.5 mg/dL (0.2-1.3); TOTAL PROTEIN 4.9 g/dL (6.3-8.2)
== END ==
LOC: LAB 05:48
PROVIDERS: Family Medicine
DX: C91.90 Lymphoid leukemia, unspecified not having achieved remission (principal); C85.90 Non-Hodgkin lymphoma, unspecified, unspecified site; R18.8 Other ascites; C18.9 Malignant neoplasm of colon, unspecified; I50.9 Heart failure, unspecified

== ENCOUNTER → 2018-01-04 | Outpatient (CLI) | payer MEDICARE, OTHER ==
[2018-01-04 15:24] LABS: BUN/CREATININE RATIO 17.1 (6.0-26.0); POTASSIUM 4.5 mmol/L (3.6-5.0)
== END ==
LOC: LAB 13:50
PROVIDERS: Family Medicine
DX: E87.6 Hypokalemia (principal); N18.3 Chronic kidney disease, stage 3 (moderate)

== ENCOUNTER → 2018-01-05 | Outpatient (CLI) | payer MEDICARE, OTHER ==
[2018-01-05 08:21] LABS: ALBUMIN 2.7 g/dL (3.5-5.0); BUN/CREATININE RATIO 17.1 (6.0-26.0); CALCIUM 8.4 mg/dL (8.4-10.2); POTASSIUM 4.6 mmol/L (3.6-5.0); TOTAL BILIRUBIN 0.5 mg/dL (0.2-1.3); TOTAL PROTEIN 5.3 g/dL (6.3-8.2)
[2018-01-05 08:24] LABS: HEMATOCRIT 30.7 % (42.0-52.0); HEMOGLOBIN 9.4 g/dL (13.5-18.0); MEAN CELL VOLUME 84 fl (78-100); MEAN CORPUSCULAR HEMOGLOBIN 26 pg (27-31); MEAN CORPUSCULAR HGB CONC 31 g/dL (33-37); MEAN PLATELET VOLUME 8.4 fl (7.4-10.4); PLATELET COUNT 380 K/mm3 (130-400); RED BLOOD COUNT 3.67 M/mm3 (4.20-5.60); WHITE BLOOD COUNT 7.8 K/mm3 (4.8-10.8)
[2018-01-05 08:41] LABS: LYMPHOCYTE 18 % (20-51); MONOCYTE 13 % (3-10); NEUTROPHILS 69 % (42-75); OVALOCYTES 1+
== END ==
LOC: LAB 07:00
PROVIDERS: Family Medicine
DX: C91.90 Lymphoid leukemia, unspecified not having achieved remission (principal); C18.9 Malignant neoplasm of colon, unspecified; C85.90 Non-Hodgkin lymphoma, unspecified, unspecified site; I50.9 Heart failure, unspecified; R60.9 Edema, unspecified

== ENCOUNTER → 2018-01-14 | Outpatient (CLI) | payer MEDICARE, OTHER ==
[2018-01-14 07:45] LABS: CALCIUM 8.3 mg/dL (8.4-10.2); POTASSIUM 4.4 mmol/L (3.6-5.0)
== END ==
LOC: LAB 06:50
PROVIDERS: Family Medicine
DX: C91.10 Chronic lymphocytic leukemia of B-cell type not having achieved remission (principal)

== ENCOUNTER → 2018-01-21 | Outpatient (CLI) | payer MEDICARE, OTHER ==
[2018-01-21 08:12] LABS: CALCIUM 8.2 mg/dL (8.4-10.2); POTASSIUM 4.1 mmol/L (3.6-5.0)
== END ==
LOC: LAB 07:05
PROVIDERS: Family Medicine
DX: J96.01 Acute respiratory failure with hypoxia (principal); C91.10 Chronic lymphocytic leukemia of B-cell type not having achieved remission

== ENCOUNTER → 2018-01-28 | Outpatient (CLI) | payer MEDICARE, OTHER ==
[2018-01-28 06:34] LABS: CALCIUM 8.2 mg/dL (8.4-10.2); POTASSIUM 4.5 mmol/L (3.6-5.0)
== END ==
LOC: LAB 06:15
PROVIDERS: Family Medicine
DX: E87.6 Hypokalemia (principal)

== ENCOUNTER → 2018-02-11 | Outpatient (CLI) | payer MEDICARE, OTHER ==
[2018-02-11 05:51] LABS: CALCIUM 8.2 mg/dL (8.4-10.2); POTASSIUM 4.3 mmol/L (3.6-5.0)
== END ==
LOC: LAB 05:25
PROVIDERS: Family Medicine
DX: E87.6 Hypokalemia (principal)

== ENCOUNTER → 2018-03-18 | Outpatient (CLI) | payer MEDICARE, OTHER ==
[2018-03-18 07:52] LABS: HEMATOCRIT 30.9 % (42.0-52.0); HEMOGLOBIN 9.4 g/dL (13.5-18.0); MEAN PLATELET VOLUME 8.9 fl (7.4-10.4); RED BLOOD COUNT 3.76 M/mm3 (4.20-5.60); RED CELL DISTRIBUTION WIDTH 16.2 % (11.5-14.5); WHITE BLOOD COUNT 6.9 K/mm3 (4.8-10.8)
[2018-03-18 08:05] LABS: ALBUMIN 2.6 g/dL (3.5-5.0); CALCIUM 8.4 mg/dL (8.4-10.2); POTASSIUM 4.6 mmol/L (3.6-5.0); TOTAL BILIRUBIN 0.6 mg/dL (0.2-1.3)
== END ==
LOC: LAB 06:10
PROVIDERS: Family Medicine
DX: D64.9 Anemia, unspecified (principal); R60.1 Generalized edema

== ENCOUNTER → 2018-04-26 | Outpatient (CLI) | payer MEDICARE, OTHER ==
[2018-04-26 07:51] LABS: CALCIUM 8.5 mg/dL (8.4-10.2); POTASSIUM 4.2 mmol/L (3.6-5.0)
== END ==
LOC: LAB 06:54
PROVIDERS: Family Medicine
DX: N18.3 Chronic kidney disease, stage 3 (moderate) (principal)

== ENCOUNTER → 2018-05-12 | Outpatient (CLI) | payer MEDICARE, OTHER ==
[2018-05-12 10:13] LABS: CALCIUM 8.5 mg/dL (8.4-10.2); POTASSIUM 3.9 mmol/L (3.6-5.0)
== END ==
LOC: LAB 09:28
PROVIDERS: Family Medicine
DX: H61.23 Impacted cerumen, bilateral (principal); H60.90 Unspecified otitis externa, unspecified ear; R18.8 Other ascites

== ENCOUNTER 2018-05-26 16:03 | Emergency (ER) | payer MEDICARE, OTHER ==
[~2018-05-26] VITALS: Wt 90.8 kg
[2018-05-26 16:40] LABS: HEMATOCRIT 33.9 % (42.0-52.0); HEMOGLOBIN 10.4 g/dL (13.5-18.0); MEAN CELL VOLUME 84 fl (78-100); MEAN CORPUSCULAR HEMOGLOBIN 26 pg (27-31); MEAN CORPUSCULAR HGB CONC 31 g/dL (33-37); MEAN PLATELET VOLUME 8.8 fl (7.4-10.4); PLATELET COUNT 322 K/mm3 (130-400); RED BLOOD COUNT 4.05 M/mm3 (4.20-5.60); RED CELL DISTRIBUTION WIDTH 16.8 % (11.5-14.5)
[2018-05-26 16:54] LABS: CALCIUM 8.6 mg/dL (8.4-10.2); POTASSIUM 4.3 mmol/L (3.6-5.0); TOTAL BILIRUBIN 1.1 mg/dL (0.2-1.3); TOTAL PROTEIN 5.5 g/dL (6.3-8.2)
[2018-05-26 17:03] LABS: PARTIAL THROMBOPLASTIN TIME 35.7 SECONDS (21.0-32.0); PROTHROMBIN TIME 10.3 SECONDS (9.0-12.0)
[2018-05-26 17:09] LABS: WHITE BLOOD COUNT 20.1 K/mm3 (4.8-10.8)
[2018-05-26 17:11] LABS: D-DIMER 2.3 mg/L FEU (0.15-0.50); TROPONIN-I < 0.03 ng/mL (0.00-0.06)
[2018-05-26 17:18] LABS: LYMPHOCYTE 7 % (20-51); MONOCYTE 7 % (3-10); NEUTROPHILS 86 % (42-75)
[2018-05-26 19:06] VITALS: BP 103/52
== END 2018-05-26 19:02 | disposition short-term general hospital (02) ==
LOC: ED 16:03
PROVIDERS: Physician Assistant
DX: I13.0 Hypertensive heart and chronic kidney disease with heart failure and stage 1 through stage 4 chronic kidney disease, or unspecified chronic kidney disease (principal); I50.9 Heart failure, unspecified; N18.9 Chronic kidney disease, unspecified; R18.8 Other ascites; L03.113 Cellulitis of right upper limb; R09.02 Hypoxemia; C19 Malignant neoplasm of rectosigmoid junction; C79.9 Secondary malignant neoplasm of unspecified site; N40.0 Benign prostatic hyperplasia without lower urinary tract symptoms; C91.10 Chronic lymphocytic leukemia of B-cell type not having achieved remission; Z79.899 Other long term (current) drug therapy; Z79.82 Long term (current) use of aspirin; Z79.01 Long term (current) use of anticoagulants
CPT/HCPCS: J1940; J2543; J3370; J7050